=== PATIENT | male | born 1985 | race Hispanic/Latino ===

== ENCOUNTER → 2018-02-23 09:51 | Outpatient (CLI) | payer OTHER, SELFPAY ==
[2018-02-23 11:33] LABS: Alanine Aminotransferase 152 IU/L (21-72); Albumin 4.4 g/dL (3.5-5.0); Albumin Globulin Ratio 1.2 (1.0-2.8); Alkaline Phosphatase 58 U/L (38-126); Aspartate Aminotransferase 86 IU/L (17-59); BUN Creatinine Ratio 13.8 (6-22); Bilirubin Total 0.8 mg/dL (0.2-1.3); Calcium 9.4 mg/dL (8.4-10.2); Cholesterol 201 mg/dL (140-199); Estimated Glomerular Filt Rate > 60.0 mL/min (>60); Globulin 3.7 g/dL (1.7-4.1); Glucose 117 mg/dL (70-100); HDL Cholesterol 51 mg/dL (40-60); HEMOLYSIS < 15 (0-50); LDL Cholesterol Calculated 135 mg/dL (<100); Potassium 4.1 mmol/L (3.4-5.1); Sodium 138 mmol/L (137-145); Total Protein 8.1 g/dL (6.3-8.2); Triglycerides 76 mg/dL (35-150)
== END ==
PROVIDERS: PCP Physician Assistant; Visit Provider Physician Assistant
DX: I10 Essential (primary) hypertension (principal); K76.0 Fatty (change of) liver, not elsewhere classified
CPT/HCPCS: 36415; 80053; 80061

== ENCOUNTER 2018-03-27 10:37 | Emergency (ER) | payer OTHER, SELFPAY ==
[2018-03-27 10:44] VITALS: BP 148/85; PULSE 112; RESP 24; TEMP 36.8; O2SAT 98; BMI 46.5
--- NOTE | 2018-03-27 11:15 | PC.NURSE ---
States he feels disoriented
[2018-03-27 11:25] VITALS: BP 168/93; PULSE 108; RESP 14; O2SAT 100
[2018-03-27 12:00] VITALS: BP 150/75; PULSE 86; RESP 19; O2SAT 97
[2018-03-27] MEDS: LORazepam 2 MG/ML SYRINGE IV (12:10)
[2018-03-27] MEDS: THIAMINE 100 MG in DEXTROSE 5 % IN WATER 50 ML 204 ML IV (12:10)
[2018-03-27 12:11] LABS: Add Manual Diff / Slide Review NO; Basophils Percent Auto 0.7 % (0-2); Eosinophils Percent Auto 2.2 % (2-4); Hematocrit 47.1 % (41-53); Hemoglobin 16.4 g/dL (13.5-17.5); Mean Corpuscular HGB Conc 34.8 % (30-36); Mean Corpuscular Hemoglobin 31.5 PG (26-34); Mean Corpuscular Volume 90.7 fL (80-100); Monocytes Percent Auto 7.7 % (3-14); Neutrophils Absolute Auto 2900 /uL (3000-5900); Neutrophils Percent Auto 56.4 % (50-75); Platelet Count 243 X10^3/uL (150-400); Red Blood Cell Count 5.19 X10^6/uL (4.5-5.9); Red Cell Distribution Width 13.6 % (11.6-14.8); White Blood Cell Count 5.1 X10^3/uL (4.5-11.0)
[2018-03-27] MEDS: SODIUM CHLORIDE 0.9% 1,000 ML 1000 ML IV (12:11)
[2018-03-27 12:16] LABS: Alanine Aminotransferase 229 IU/L (21-72); Albumin 4.5 g/dL (3.5-5.0); Albumin Globulin Ratio 1.1 (1.0-2.8); Alkaline Phosphatase 71 U/L (38-126); Aspartate Aminotransferase 160 IU/L (17-59); BUN Creatinine Ratio 13.3 (6-22); Bilirubin Total 0.6 mg/dL (0.2-1.3); Bilirubin Unconjugated 0.2 mg/dL (0.0-1.1); Blood Urea Nitrogen 8 mg/dL (9-20); Calcium 9.2 mg/dL (8.4-10.2); Carbon Dioxide 25 mmol/L (22-32); Chloride 98 mmol/L (98-107); Estimated Glomerular Filt Rate > 60.0 mL/min (>60); Ethanol (ETOH) 50 mg/dL; Glucose 127 mg/dL (70-100); HEMOLYSIS 22 (0-50); Lipase 99 U/L (23-300); Magnesium 1.8 mg/dL (1.6-2.3); Potassium 3.8 mmol/L (3.4-5.1); Sodium 138 mmol/L (137-145); Total Protein 8.5 g/dL (6.3-8.2)
[2018-03-27 12:55] VITALS: BP 133/70; PULSE 95; RESP 20; O2SAT 96
[2018-03-27 13:04] LABS: Urine Amphetamines Negative (Negative); Urine Barbiturates Negative (Negative); Urine Benzodiazepines Negative (Negative); Urine Cocaine Negative (Negative); Urine MDMA Negative (Negative); Urine Methadone Negative (Negative); Urine Methamphetamines Negative (Negative); Urine Morphine/Opi cutoff 2000 Negative (Negative); Urine Oxycodone Negative (Negative); Urine Phencyclidine Negative (Negative); Urine Tetrahydrocannabinol Negative (Negative); Urine Tricyclic Antidepressant Negative (Negative)
[2018-03-27 14:00] VITALS: BP 137/66; PULSE 102; RESP 22; O2SAT 97
--- NOTE | 2018-03-27 15:19 | CM.SWNOTE ---
HOSIERY MENDER/Note: Received call from ED staff requesting HOSIERY MENDER for alcohol resources. Patient is a 32yr old male came to the ED today for alcohol detox. HOSIERY MENDER spoke with Dr. Wilkes whom indicates that patient is medically stable. HX of Alcoholism: Patient reports that he has been heavily drinking for the last 7yrs. Patient drink of choice is vodka. Patient anticipates that he drinks about 1 pint a day. HX of Treatment/Detox: Patient and spouse deny any previous detox attempts. Patient denies previous withdrawal attempts. Family HX: Patient reports that his father in June 2017 of liver disease. Support: Patient resides with spouse/Leyda whom is very supportive and does not drink. Patient active at [facility]. Patient sees Dr. Rachel and Luda for counseling. Plan: HOSIERY MENDER met with pateint and spouse at bedside. Patient reports that he would like to stop drinking. Patient's last drink was last night. Patient prefers to attempt detox at home. Spouse in agreement. Placed call to [facility] and patient can be seen by Dr. Rachel on 03-29 at 11:00AM. Dr. Wilkes in agreement to write patient prescription taper for alcohol withdrawal symptoms. Patient and spouse provided with outpatient resources and [facility] brochure for inpatient detox if they were to change there mind. P: Home today. RN updated. All aware and agreeable to plan. YOKASTA Allen
--- NOTE | 2018-03-27 19:26 | ED_ITS ---
HPI - Alcohol General Chief Complaint: Toxicology Problem Stated Complaint: LETHARGIC 'HIS HEART' Time Seen by Provider: 03/27/18 11:17 Source: patient and family Mode of arrival: ambulatory Limitations: no limitations History of Present Illness HPI narrative: Patient presents to the emergency department with a chief complaint of resting tremor, agitation and not feeling right in his head. He admittedly drinks about 1 L of vodka daily. He denies any history withdrawal in the past of his suggest that has had troubles. He has had no head injuries nor fever or chills Related Data Home Medications Medication Instructions Recorded Confirmed diltiazem HCl 60 mg PO PRN PRN #0 07/13/16 03/27/18 [CPAP] 1 unit MISCELLANEOUS HS #0 03/23/17 03/27/18 vitamin E 200 unit PO DAILY #0 03/23/17 03/27/18 Previous Rx's Medication Instructions Recorded tamsulosin [Flomax] 0.4 mg PO QDAY #90 cap 11/15/17 gabapentin [Neurontin] 300 mg PO TID #90 cap 01/18/18 lisinopril 20 1 tab PO QDAY #30 tab 02/14/18 mg-hydrochlorothiazide 12.5 mg tablet omeprazole 20 mg capsule,delayed 20 mg PO Q DAY #90 cap 03/08/18 release sertraline 100 mg tablet 100 mg PO DAILY 30 Days #30 tab 03/15/18 lorazepam [Ativan] See Label Instructions .ROUTE 03/27/18 .COMPLEX #19 tab Allergies Allergy/AdvReac Type Severity Reaction Status Date / Time Iodine and Iodide Containing Allergy Intermediate Hives Verified 03/27/18 10:48 Produc Review of Systems Review of Systems All systems reviewed & are unremarkable except as noted in HPI and below Constitutional Denies chills, Denies fever(s), Reports headache(s), Denies lethargy and Denies weakness Eyes Denies change in vision, Denies eye discharge, Denies irritation and Denies loss of vision ENT Ears, Nose, Mouth, and Throat: Denies change in voice, Reports headache(s), Denies neck pain and Denies sore throat Cardiovascular Denies chest pain, Reports irregular heart rhythm, Denies lightheadedness, Reports palpitations, Denies dyspnea, Denies dyspnea on exertion and Denies orthopnea Respiratory Denies cough, Denies dyspnea, Denies dyspnea on exertion and Denies wheezing Gastrointestinal Gastrointestinal: Denies abdominal pain, Denies change in bowel habits, Denies diarrhea, Denies nausea and Denies vomiting Genitourinary Denies hematuria, Denies flank pain, Denies urinary incontinence and Denies urinary urgency Musculoskeletal Denies neck pain Integumentary/Breasts Denies pruritus, Denies erythema, Denies rash and Denies wounds Neurologic Denies confusion, Reports headache(s), Denies loss of vision and Denies weakness Psychiatric Reports anxiety, Denies confusion, Denies depression, Reports irritability, Denies homicidal ideation and Denies suicidal ideation Endocrine Reports palpitations Hematologic/Lymphatic Denies easy bruising Allergic/Immunologic Denies wheezing PFSH Medical History Irritable bowel syndrome (Acute Unknown) Liver disease (Acute Unknown) GERD (gastroesophageal reflux disease) (Chronic Unknown) H/O tinnitus (Chronic Unknown) Hypertension (Chronic Unknown) Substance abuse (Chronic Unknown) Social History Smoking Status: Never smoker Exam Narrative Exam Narrative: 32-year-old male in mild distress, clearly agitated Initial Vital Signs Initial Vital Signs: Vital Signs Temperature 98.2 F 03/27/18 10:44 Pulse Rate 112 H 03/27/18 10:44 Respiratory Rate 24 03/27/18 10:44 Blood Pressure 148/85 H 03/27/18 10:44 Pulse Oximetry 98 03/27/18 10:44 Const General: cooperative, well developed, in distress and anxious Nutritional Appearance: well nourished Orientation: alert, awake, oriented x3 and not confused [facility] Head: normocephalic and atraumatic Ears: external ears normal and TM's normal bilaterally Nose: external nose normal and No nasal discharge Face and sinus: sinuses nontender, face symmetric, no sinus tenderness and No dry mucous membranes Mouth: oral mucosae normal and moist mucous membranes Teeth and gingiva: dentition normal Throat: tonsils normal and uvula midline Eyes General: appearance normal, both eyes and all related structures Eyelids: eyelids normal Conjunctivae: conjunctivae normal Sclera: sclerae normal Pupils: PERRL EOM: EOM intact bilaterally Chest Chest: normal inspection of the chest Cardio Rate: regular rate Rhythm: regular rhythm Heart Sounds: no click, no gallops, no murmurs and no rubs Pulses: normal peripheral pulses GI Inspection: non-distended Palpation: soft, no hepatosplenomegaly, No guarding, No pulsatile mass and No tender Auscultation: normal bowel sounds Back/Spine/Pelvis Back: No CVA tenderness Cervical Spine: cervical ROM normal and No pain with cervical ROM Thoracic/Lumbar Spine: thoracic and lumbar spine normal to inspection Neuro General: alert, awake and oriented x3 Extrem General: full ROM, no clubbing, cyanosis or edema, no pedal edema and no calf tenderness Psych Appearance: well kempt Mental Status: mental status grossly normal Attitude: cooperative Thought Content: normal and suicidality Judgment: judgment good Course Orders Ordered: ED Orders 03/27/18 11:40 Complete Blood Count AUTO DIFF Stat Comprehensive Metabolic Panel Stat Ethanol (ETOH) Stat Hepatic (Liver) Panel Stat Lipase Stat Magnesium Stat 03/27/18 12:50 Rapid Drug Screen, Urine Stat Discontinued Medications Sodium Chloride (Normal Saline 0.9%) 1,000 mls @ 1,000 mls/hr IV BOLUS ONE Stop: 03/27/18 12:56 Last Infusion: 03/27/18 13:13 Dose: 0 mls/hr Admin: 03/27/18 12:11 Dose: 1,000 mls/hr Thiamine HCl 100 mg/ Dextrose 51 mls @ 204 mls/hr IV NOW ONE Stop: 03/27/18 11:58 Last Infusion: 03/27/18 12:53 Dose: 0 mls/hr Admin: 03/27/18 12:10 Dose: 204 mls/hr Lorazepam (Ativan) 2 mg IV NOW ONE Stop: 03/27/18 11:58 Last Admin: 03/27/18 12:10 Dose: 2 mg Reevaluation(s) Reevaluation #1: Christine for Alcohol Withdrawal from [facility] on 03/27/2018 All calculations should be rechecked by clinician prior to use RESULT SUMMARY: 8 points Patients with scores ?8 typically do not require medication for withdrawal. INPUTS: Nausea/vomiting ?> 1 = Mild nausea and no vomiting Tremor ?> 2 = (More severe symptoms) Paroxysmal sweats ?> 0 = No sweat visible Anxiety ?> 2 = (More severe symptoms) Agitation ?> 2 = (More severe symptoms) Tactile disturbances ?> 0 = None Auditory disturbances ?> 0 = Not present Visual disturbances ?> 0 = Not present Headache/fullness in head ?> 1 = Very mild Orientation/clouding of sensorium ?> 0 = Oriented, can do serial additions Consultations Consultation #1: Patient had a lengthy bedside discussion with care management whom called multiple local facilities patient refused any inpatient evaluation. Care management was able to arrange for close follow-up by the patient's primary care provider and mental health provider within the next 2 days Vital Signs - 8 hr 03/27/18 12:55 03/27/18 14:00 Pulse Rate 95 H 102 H Respiratory Rate 20 22 Blood Pressure [Left Arm] 133/70 H 137/66 H Pulse Oximetry 96 97 MDM - Alcohol Lab Data Result diagrams: 03/27/18 11:40 03/27/18 11:40 Labs: Lab Results 03/27/18 03/27/18 03/27/18 Range/Units 11:40 11:40 12:50 WBC 5.1 (4.5-11.0) X10^3/uL RBC 5.19 (4.5-5.9) X10^6/uL Hgb 16.4 (13.5-17.5) g/dL Hct 47.1 (41-53) % MCV 90.7 (80-100) fL MCH 31.5 (26-34) PG MCHC 34.8 (30-36) % RDW 13.6 (11.6-14.8) % Plt Count 243 (150-400) X10^3/uL Neut % (Auto) 56.4 (50-75) % Lymph % (Auto) 33.0 (25-40) % [place] % (Auto) 7.7 (3-14) % Eos % (Auto) 2.2 (2-4) % Baso % (Auto) 0.7 (0-2) % Neut # (Auto) 2900 L (2439-5266) /uL Sodium 138 (137-145) mmol/L Potassium 3.8 (3.4-5.1) mmol/L Chloride 98 (98-107) mmol/L Carbon Dioxide 25 (22-32) mmol/L BUN 8 L (9-20) mg/dL Creatinine 0.60 L (0.66-1.25) mg/dL Estimated GFR > 60.0 (>60) mL/min BUN/Creatinine Ratio 13.3 (6-22) Glucose 127 H (70-100) mg/dL Calcium 9.2 (8.4-10.2) mg/dL Magnesium 1.8 (1.6-2.3) mg/dL Total Bilirubin 0.6 (0.2-1.3) mg/dL Conjugated Bilirubin 0.0 (0.0-0.3) md/dL Unconjugated Bilirubin 0.2 (0.0-1.1) mg/dL AST 160 H (17-59) IU/L ALT 229 H (21-72) IU/L Alkaline Phosphatase 71 (38-126) U/L Total Protein 8.5 H (6.3-8.2) g/dL Albumin 4.5 (3.5-5.0) g/dL Globulin 4.0 (1.7-4.1) g/dL Albumin/Globulin Ratio 1.1 (1.0-2.8) Lipase 99 (23-300) U/L Urine Opiates Screen Negative (Negative) Ur Oxycodone Screen Negative (Negative) Urine Methadone Screen Negative (Negative) Ur Barbiturates Screen Negative (Negative) U Tricyclic Antidepress Negative (Negative) Ur Phencyclidine Scrn Negative (Negative) Ur Amphetamines Screen Negative (Negative) U Methamphetamines Scrn Negative (Negative) Ur MDMA Scrn (Ecstasy) Negative (Negative) U Benzodiazepines Scrn Negative (Negative) Urine Cocaine Screen Negative (Negative) U Marijuana (THC) Screen Negative (Negative) Ethyl Alcohol 50 mg/dL Discharge Plan Departure Patient Disposition: Home, Self-Care Clinical Impression: Alcohol withdrawal Discharge Date/Time: 03/27/18 14:36 Interventions: ED Discharge Assessment Last Done: 03/27/18 14:34 Instructions: Alcohol Use Disorder Activity Restrictions/Additional Instructions: *You have been diagnosed with [ alcohol abuse and withdrawal ] *What to do: *Take medications as directed *Follow up with your doctors as planned with care management *Return to ER if you should haveany new, worsening or concerning symptoms Prescriptions: New lorazepam [Ativan] 1 mg tablet See Label Instructions .ROUTE .COMPLEX Qty: 19 RF: 0 No Action sertraline 100 mg tablet 100 mg PO DAILY 30 Days Qty: 30 RF: 2 diltiazem HCl 60 mg Tablet 60 mg PO PRN PRN (Reason: UNKNOWN) Qty: 0 RF: 0 vitamin E 200 unit Capsule 200 unit PO DAILY Qty: 0 RF: 0 [CPAP] 1 unit miscellaneous HS Qty: 0 RF: 0 tamsulosin [Flomax] 0.4 MG capsule,extended release 24hr 0.4 mg PO QDAY Qty: 90 RF: 1 gabapentin [Neurontin] 300 MG capsule 300 mg PO TID Qty: 90 RF: 2 lisinopril-hydrochlorothiazide 20-12.5 mg tablet 1 tab PO QDAY Qty: 30 RF: 1 omeprazole 20 mg capsule,delayed release(DR/EC) 20 mg PO Q DAY Qty: 90 RF: 1 Referrals: Eric Rachel DO [Physician] - Stand Alone Forms: Work/School Restrictions
== END 2018-03-27 14:36 | disposition home or self-care (01) ==
PROVIDERS: Emergency Provider Emergency Medicine; Family Provider Physician Assistant; PCP Physician Assistant
DX: F10.239 Alcohol dependence with withdrawal, unspecified (principal)
CPT/HCPCS: 36591; 80053; 80076; 80305; 80320; 83690; 83735; 85025; 93005; 96365; 96375; 99284; J2060

== ENCOUNTER → 2018-08-15 08:39 | Outpatient (CLI) | payer OTHER, SELFPAY ==
[2018-08-15 10:16] LABS: Hemoglobin A1C% w Est Avg Glu 5.8 % (4.0-6.0)
[2018-08-15 10:47] LABS: Alanine Aminotransferase 293 IU/L (21-72); Albumin 4.5 g/dL (3.5-5.0); Albumin Globulin Ratio 1.2 (1.0-2.8); Alkaline Phosphatase 76 U/L (38-126); Aspartate Aminotransferase 244 IU/L (17-59); BUN Creatinine Ratio 11.3 (6-22); Bilirubin Total 0.5 mg/dL (0.2-1.3); Blood Urea Nitrogen 9 mg/dL (9-20); Calcium 9.1 mg/dL (8.4-10.2); Carbon Dioxide 30 mmol/L (22-32); Chloride 101 mmol/L (98-107); Cholesterol 197 mg/dL (140-199); Estimated Glomerular Filt Rate > 60.0 mL/min (>60); Globulin 3.7 g/dL (1.7-4.1); Glucose 106 mg/dL (70-100); HDL Cholesterol 56 mg/dL (40-60); HEMOLYSIS < 15 (0-50); LDL Cholesterol Calculated 117 mg/dL (<100); Sodium 142 mmol/L (137-145); Total Protein 8.2 g/dL (6.3-8.2); Triglycerides 118 mg/dL (35-150)
[2018-08-15 11:03] LABS: Microalbumi Creatinin Ratio Ur 9.8 ug/mg CR (<30)
== END ==
PROVIDERS: PCP Physician Assistant; Visit Provider Physician Assistant
DX: E78.5 Hyperlipidemia, unspecified (principal); I10 Essential (primary) hypertension; K76.0 Fatty (change of) liver, not elsewhere classified; R73.01 Impaired fasting glucose
CPT/HCPCS: 36415; 80053; 80061; 82043; 82570; 83036

== ENCOUNTER → 2019-01-11 09:24 | Outpatient (CLI) | payer OTHER, SELFPAY ==
[2019-01-11 09:57] LABS: Influenza A and B by PCR Rapid Negative (Negative)
== END ==
PROVIDERS: Family Provider Physician Assistant; PCP Physician Assistant; Visit Provider Physician Assistant
DX: R68.89 Other general symptoms and signs (principal)
CPT/HCPCS: 87400

== ENCOUNTER → 2019-01-11 09:44 | Outpatient (CLI) | payer OTHER, SELFPAY ==
[2019-01-11 10:17] LABS: Add Manual Diff / Slide Review NO; Basophils Absolute Auto 0 /uL (0-100); Basophils Percent Auto 0.7 % (0-2); Eosinophils Absolute Auto 100 /uL (0-450); Eosinophils Percent Auto 0.9 % (2-4); Hematocrit 44.7 % (41-53); Hemoglobin 15.5 g/dL (13.5-17.5); Lymphocytes Absolute Auto 700 /uL (1100-4500); Lymphocytes Percent Auto 12.5 % (25-40); Mean Corpuscular HGB Conc 34.7 % (30-36); Mean Corpuscular Hemoglobin 32.9 PG (26-34); Mean Corpuscular Volume 94.7 fL (80-100); Monocytes Absolute Auto 300 /uL (0-900); Monocytes Percent Auto 5.5 % (3-14); Neutrophils Absolute Auto 4500 /uL (1500-7000); Neutrophils Percent Auto 80.4 % (50-75); Platelet Count 174 X10^3/uL (150-400); Red Blood Cell Count 4.72 X10^6/uL (4.5-5.9); Red Cell Distribution Width 14.3 % (11.6-14.8); White Blood Cell Count 5.6 X10^3/uL (4.5-11.0)
[2019-01-11 10:27] LABS: Lipase 118 U/L (23-300)
[2019-01-11 10:31] LABS: Alanine Aminotransferase 302 IU/L (21-72); Albumin 4.4 g/dL (3.5-5.0); Albumin Globulin Ratio 1.1 (1.0-2.8); Alkaline Phosphatase 85 U/L (38-126); Aspartate Aminotransferase 583 IU/L (17-59); BUN Creatinine Ratio 12.9 (6-22); Bilirubin Total 2.6 mg/dL (0.2-1.3); Blood Urea Nitrogen 9 mg/dL (9-20); Calcium 9.2 mg/dL (8.4-10.2); Carbon Dioxide 27 mmol/L (22-32); Chloride 99 mmol/L (98-107); Estimated Glomerular Filt Rate > 60.0 mL/min (>60); Globulin 3.9 g/dL (1.7-4.1); Glucose 113 mg/dL (70-100); HEMOLYSIS < 15 (0-50); Potassium 4.1 mmol/L (3.4-5.1); Sodium 136 mmol/L (137-145); Total Protein 8.3 g/dL (6.3-8.2)
== END ==
PROVIDERS: Physician Assistant; PCP Physician Assistant; Visit Provider Physician Assistant
DX: I10 Essential (primary) hypertension (principal); R10.9 Unspecified abdominal pain; F10.20 Alcohol dependence, uncomplicated; K76.0 Fatty (change of) liver, not elsewhere classified; R68.89 Other general symptoms and signs
CPT/HCPCS: 80053; 83690; 85025; 87400

== ENCOUNTER 2019-05-04 12:08 | Emergency (ER) | payer OTHER, SELFPAY ==
[2019-05-04 12:18] VITALS: BP 169/90; PULSE 100; RESP 20; TEMP 36.5; O2SAT 99; BMI 42.3
--- NOTE | 2019-05-04 13:19 | ED.NAVMDI ---
HPI - Nausea/Vomiting/Diarrhea <YAMILKA Zavala - Last Filed: 05/04/19 21:27> General Chief complaint: Nausea/Vomiting/Diarrhea Stated complaint: medication reaction Time Seen by Provider: 05/04/19 12:39 History of Present Illness HPI Narrative: 33-year-old male with a history of alcohol abuse, presents emergency department today complaining of dry mouth, nausea, and dizziness starting this morning with associated vomiting. He states that he has been tapering off his Zoloft and switching to Cymbalta over the past few weeks, was initiated by Psychiatry, per patient. Today is the 2nd day he is taking a full dose of Cymbalta. He states he usually drinks a 0.5 L of vodka a day, today he has drinking the same. He denies any chest pain, shortness of breath, headaches, vision changes, sore throat, abdominal pain, diarrhea, constipation, or head trauma. Related Data Home Medications Medication Instructions Recorded Confirmed vitamin B complex tablet 1 tab PO DAILY 11/02/18 05/04/19 duloxetine 60 mg PO DAILY 05/04/19 05/04/19 Previous Rx's Medication Instructions Recorded lisinopril 20 1 tab PO DAILY #90 tab 11/02/18 mg-hydrochlorothiazide 12.5 mg tablet omeprazole 20 mg capsule,delayed 20 mg PO Q DAY #90 cap 11/27/18 release ondansetron HCl [Zofran] 4 mg PO Q8-12H PRN #7 tab 05/04/19 Allergies Allergy/AdvReac Type Severity Reaction Status Date / Time Iodine and Iodide Containing Allergy Intermediate Hives Verified 05/04/19 14:15 Produc Review of Systems <YAMILKA Zavala - Last Filed: 05/04/19 21:27> Review of Systems REVIEW OF SYSTEMS: GENERAL: Denies fever, chills, malaise, or wt. loss. HENT: No head trauma, sore throat, or dysphagia. Complains of dry mouth, see HPI. EYES: No loss of vision, double vision, eye pain, or irritation. CARDIOVASCULAR: No chest pain, palpitations, or orthopnea. RESPIRATORY: No shortness of breath or cough. GASTROINTESTINAL: Complains of nausea, see HPI GENITOURINARY: No flank pain, urinary incontinence, hesitancy, frequency, or dysuria. [No vaginal discharge or dyspareunia. Denies concerns for STIs] MUSCULOSKELETAL: No pain, weakness, or trauma. INTEGUMENTARY: No rash, lesions, or pruritus. NEURO: No numbness, tingling, memory loss, confusion, or headaches. PSYCH: No behavior or mood changes. PFSH <YAMILKA Zavala - Last Filed: 05/04/19 21:27> Medical History Irritable bowel syndrome (Acute Unknown) Liver disease (Acute Unknown) GERD (gastroesophageal reflux disease) (Chronic Unknown) H/O tinnitus (Chronic Unknown) Hypertension (Chronic Unknown) Substance abuse (Chronic Unknown) Social History Smoking Status: Never smoker second hand exposure: No alcohol intake: current (vodka everyday.) substance use type: does not use Social History Smoking Status: Never smoker second hand exposure: No alcohol intake: current (vodka everyday.) substance use type: does not use Exam <YAMILKA Zavala - Last Filed: 05/04/19 21:27> Initial Vital Signs Initial Vital Signs: Vital Signs Temperature 97.7 F 05/04/19 12:18 Pulse Rate 100 H 05/04/19 12:18 Respiratory Rate 20 05/04/19 12:18 Blood Pressure 169/90 H 05/04/19 12:18 Pulse Oximetry 99 05/04/19 12:18 PHYSICAL EXAMINATION: GENERAL: Well groomed, alert, and cooperative. Patient smells of alcohol. Answers questions promptly and appropriately. Vital signs noted. HENT: Normocephalic, atraumatic. Hearing intact. Oral mucosa is pink and moist. EYES: PERRLA, EOMIs, slight leftward vertical nystagmus. Conjunctiva pink, sclera white, no periorbital swelling. CARDIOVASCULAR: S1 and S2 sounds normal. Regular rate and rhythm, no murmurs, clicks, or bruits. No pedal edema. RESPIRATORY: Normal respiratory rate, trachea midline, airway patent. No stridor, nasal flaring or accessory muscle use. Lungs are clear in all naik without wheeze, rhonchi, or crackles. GASTROINTESTINAL: Bowel sounds normoactive. Abdomen is soft and non-tender. No organomegaly, no palpable masses. GENITALURINARY: No flank tenderness. MUSCULOSKELETAL: Normal gait and coordination. Equal tone and mass bilaterally. EXTREMITIES: CMS intact, no pedal edema. SKIN: Warm, dry, soft, appropriate color for ethnicity. No lesions, rashes, or wounds. NEURO: Alert and Oriented X 3. CN III-XIII grossly intact. Good coordination. No ataxia, or sensory deficits, or cognitive issues. PSYCH: Appropriate affect and mood. <Gabrielle Winters DO - Last Filed: 05/05/19 07:27> Initial Vital Signs Initial Vital Signs: Vital Signs Temperature 97.7 F 05/04/19 12:18 Pulse Rate 100 H 05/04/19 12:18 Respiratory Rate 20 05/04/19 12:18 Blood Pressure 169/90 H 05/04/19 12:18 Pulse Oximetry 99 05/04/19 12:18 Course <YAMILKA Zavala - Last Filed: 05/04/19 21:27> Course Narrative: Patient states he was feeling a lot better after administration of medication and fluid. He states still feels a bit foggy. Patient was instructed to follow up with Psychiatry about medication adjustment if needed. Patient was able to ambulate without difficulty. Orders Ordered: Discontinued Medications Sodium Chloride (Normal Saline 0.9%) 1,000 mls @ 1,000 mls/hr IV BOLUS ONE Stop: 05/04/19 14:11 Last Infusion: 05/04/19 15:31 Dose: 0 mls/hr Admin: 05/04/19 13:46 Dose: 1,000 mls/hr Lorazepam (Ativan) 0.5 mg IV NOW ONE Stop: 05/04/19 13:13 Last Admin: 05/04/19 13:46 Dose: 0.5 mg Vital Signs - 8 hr 05/04/19 13:35 05/04/19 14:21 05/04/19 15:27 Pulse Rate 101 H 98 H 101 H Respiratory Rate 24 22 24 Blood Pressure [Left Arm] 175/97 H 157/92 H 149/80 H Pulse Oximetry 98 95 97 <Gabrielle Winters DO - Last Filed: 05/05/19 07:27> Orders Ordered: Discontinued Medications Sodium Chloride (Normal Saline 0.9%) 1,000 mls @ 1,000 mls/hr IV BOLUS ONE Stop: 05/04/19 14:11 Last Infusion: 05/04/19 15:31 Dose: 0 mls/hr Admin: 05/04/19 13:46 Dose: 1,000 mls/hr Lorazepam (Ativan) 0.5 mg IV NOW ONE Stop: 05/04/19 13:13 Last Admin: 05/04/19 13:46 Dose: 0.5 mg Vital Signs - 8 hr 05/04/19 13:35 05/04/19 14:21 05/04/19 15:27 Pulse Rate 101 H 98 H 101 H Respiratory Rate 24 22 24 Blood Pressure [Left Arm] 175/97 H 157/92 H 149/80 H Pulse Oximetry 98 95 97 MDM - Nausea/Vomiting/Diarrhea <YAMILKA Zavala - Last Filed: 05/04/19 21:27> Medical Records Attestation: I reviewed the patient's medical records. Lab Data Attestation: I reviewed the patient's lab results. Result diagrams: 05/04/19 13:35 05/04/19 13:35 Lab Results 05/04/19 05/04/19 Range/Units 13:35 13:35 WBC 6.5 (4.5-11.0) X10^3/uL RBC 4.45 L (4.5-5.9) X10^6/uL Hgb 14.6 (13.5-17.5) g/dL Hct 43.0 (41-53) % MCV 96.5 (80-100) fL MCH 32.8 (26-34) PG MCHC 34.0 (30-36) % RDW 13.7 (11.6-14.8) % Plt Count 177 (150-400) X10^3/uL Neut % (Auto) 78.6 H (50-75) % Lymph % (Auto) 13.9 L (25-40) % [place] % (Auto) 6.3 (3-14) % Eos % (Auto) 0.3 L (2-4) % Baso % (Auto) 0.9 (0-2) % Neut # (Auto) 5100 (7539-7611) /uL Lymph # (Auto) 900 L (3289-3627) /uL [place] # (Auto) 400 (0-900) /uL Eos # (Auto) 0 (0-450) /uL Baso # (Auto) 100 (0-100) /uL Sodium 135 L (137-145) mmol/L Potassium 3.9 (3.4-5.1) mmol/L Chloride 94 L (98-107) mmol/L Carbon Dioxide 28 (22-32) mmol/L BUN 5 L (9-20) mg/dL Creatinine 0.50 L (0.66-1.25) mg/dL Estimated GFR > 60.0 (>60) mL/min BUN/Creatinine Ratio 10.0 (6-22) Glucose 114 H (70-100) mg/dL Calcium 9.1 (8.4-10.2) mg/dL Total Bilirubin 2.1 H (0.2-1.3) mg/dL AST 379 H (17-59) IU/L ALT 115 H (21-72) IU/L Alkaline Phosphatase 138 H (38-126) U/L Total Protein 9.1 H (6.3-8.2) g/dL Albumin 4.4 (3.5-5.0) g/dL Globulin 4.7 H (1.7-4.1) g/dL Albumin/Globulin Ratio 0.9 L (1.0-2.8) ECG Data Interpretation: EKG was read and interpreted by Dr. Winters. MDM Narrative Medical decision making narrative: I suspect patient's symptoms are due to this which in anti-depression medication as all of his symptoms are side effects of these medications, his affect are probably accentuated by his consumption of alcohol. I am not concerned for a cranial bleed as he does not report any trauma, I am not concern for withdrawals as he states he has been drinking a half a liter of vodka for many days and has not been drinking that today as well as yesterday. Strict return precautions given and follow-up instructions discussed. <Gabrielle Winters, DO - Last Filed: 05/05/19 07:27> Lab Data Lab Results 05/04/19 05/04/19 Range/Units 13:35 13:35 WBC 6.5 (4.5-11.0) X10^3/uL RBC 4.45 L (4.5-5.9) X10^6/uL Hgb 14.6 (13.5-17.5) g/dL Hct 43.0 (41-53) % MCV 96.5 (80-100) fL MCH 32.8 (26-34) PG MCHC 34.0 (30-36) % RDW 13.7 (11.6-14.8) % Plt Count 177 (150-400) X10^3/uL Neut % (Auto) 78.6 H (50-75) % Lymph % (Auto) 13.9 L (25-40) % [place] % (Auto) 6.3 (3-14) % Eos % (Auto) 0.3 L (2-4) % Baso % (Auto) 0.9 (0-2) % Neut # (Auto) 5100 (4406-7626) /uL Lymph # (Auto) 900 L (8511-5338) /uL [place] # (Auto) 400 (0-900) /uL Eos # (Auto) 0 (0-450) /uL Baso # (Auto) 100 (0-100) /uL Sodium 135 L (137-145) mmol/L Potassium 3.9 (3.4-5.1) mmol/L Chloride 94 L (98-107) mmol/L Carbon Dioxide 28 (22-32) mmol/L BUN 5 L (9-20) mg/dL Creatinine 0.50 L (0.66-1.25) mg/dL Estimated GFR > 60.0 (>60) mL/min BUN/Creatinine Ratio 10.0 (6-22) Glucose 114 H (70-100) mg/dL Calcium 9.1 (8.4-10.2) mg/dL Total Bilirubin 2.1 H (0.2-1.3) mg/dL AST 379 H (17-59) IU/L ALT 115 H (21-72) IU/L Alkaline Phosphatase 138 H (38-126) U/L Total Protein 9.1 H (6.3-8.2) g/dL Albumin 4.4 (3.5-5.0) g/dL Globulin 4.7 H (1.7-4.1) g/dL Albumin/Globulin Ratio 0.9 L (1.0-2.8) Discharge Plan Departure Patient Disposition: Home Clinical Impression: Adverse reaction to SSRI antidepressant drug Qualifiers: Encounter type: initial encounter Qualified Code(s): T43.225A - Adverse effect of selective serotonin reuptake inhibitors, initial encounter Discharge Date/Time: 05/04/19 15:31 Interventions: ED Discharge Assessment Last Done: 05/04/19 15:31 Instructions: DI for Nausea -- Adult Activity Restrictions/Additional Instructions: Thank you for entrusting me with your care today. As discussed, I believe your symptoms are caused by a change in medications. Please follow up with Psychiatry in the next week to discuss your symptoms and any changes to the medication if they need to be made. I do not recommend stopping your antidepressants as this will cause more symptoms. I prescribed you some medication for nausea. Please return to the emergency department if he develops chest pain, shortness of breath, syncope, seizures, or high fevers. Prescriptions: New ondansetron HCl [Zofran] 4 mg tablet 4 mg PO Q8-12H PRN (Reason: nausea and vomiting) Qty: 7 RF: 0 No Action vitamin B complex tablet 1 tab PO DAILY RF: 0 lisinopril-hydrochlorothiazide 20-12.5 mg tablet 1 tab PO DAILY Qty: 90 RF: 1 omeprazole 20 mg capsule,delayed release(DR/EC) 20 mg PO Q DAY Qty: 90 RF: 1 duloxetine 60 mg capsule,delayed release(DR/EC) 60 mg PO DAILY RF: 0 Referrals: Tracee Knott PA-C [Primary Care Provider] - <Gabrielle Winters DO - Last Filed: 05/05/19 07:27> [facility] ED Attending Lashay Attestation: I was immediately available in the department for consultation. Documentation has been reviewed. I agree with assessment and plan.
--- NOTE | 2019-05-04 13:27 | ED_ITS ---
HPI - Nausea/Vomiting/Diarrhea <YAMILKA Zavala - Last Filed: 05/04/19 21:27> General Chief complaint: Nausea/Vomiting/Diarrhea Stated complaint: medication reaction Time Seen by Provider: 05/04/19 12:39 History of Present Illness HPI Narrative: 33-year-old male with a history of alcohol abuse, presents emergency department today complaining of dry mouth, nausea, and dizziness starting this morning with associated vomiting. He states that he has been tap ering off his Zoloft and switching to Cymbalta over the past few weeks, was initiated by Psychiatry, per patient. Today is the 2nd day he is taking a full dose of Cymbalta. He states he usually drinks a 0.5 L of vodka a day, today he has drinking the same. He denies any chest pain, shortness of breath, headaches, vision changes, sore throat, abdominal pain, diarrhea, constipation, or head trauma. Related Data Home Medications Medication Instructions Recorded Confirmed vitamin B complex tablet 1 tab PO DAILY 11/02/18 05/04/19 duloxetine 60 mg PO DAILY 05/04/19 05/04/19 Previous Rx's Medication Instructions Recorded lisinopril 20 1 tab PO DAILY #90 tab 11/02/18 mg-hydrochlorothiazide 12.5 mg tablet omeprazole 20 mg capsule,delayed 20 mg PO Q DAY #90 cap 11/27/18 release ondansetron HCl [Zofran] 4 mg PO Q8-12H PRN #7 tab 05/04/19 Allergies Allergy/AdvReac Type Severity Reaction Status Date / Time Iodine and Iodide Containing Allergy Intermediate Hives Verified 05/04/19 14:15 Produc Review of Systems <YAMILKA Zavala - Last Filed: 05/04/19 21:27> Review of Systems REVIEW OF SYSTEMS: GENERAL: Denies fever, chills, malaise, or wt. loss. HENT: No head trauma, sore throat, or dysphagia. Complains of dry mouth, see HPI. EYES: No loss of vision, double vision, eye pain, or irritation. CARDIOVASCULAR: No chest pain, palpitations, or orthopnea. RESPIRATORY: No shortness of breath or cough. GASTROINTESTINAL: Complains of nausea, see HPI GENITOURINARY: No flank pain, urinary incontinence, hesitancy, frequency, or dysuria. [No vaginal discharge or dyspareunia. Denies concerns for STIs] MUSCULOSKELETAL: No pain, weakness, or trauma. INTEGUMENTARY: No rash, lesions, or pruritus. NEURO: No numbness, tingling, memory loss, confusion, or headaches. PSYCH: No behavior or mood changes. PFSH <YAMILKA Zavala - Last Filed: 05/04/19 21:27> Medical History Irritable bowel syndrome (Acute Unknown) Liver disease (Acute Unknown) GERD (gastroesophageal reflux disease) (Chronic Unknown) H/O tinnitus (Chronic Unknown) Hypertension (Chronic Unknown) Substance abuse (Chronic Unknown) Social History Smoking Status: Never smoker second hand exposure: No alcohol intake: current (vodka everyday.) substance use type: does not use Social History Smoking Status: Never smoker second hand exposure: No alcohol intake: current (vodka everyday.) substance use type: does not use Exam <YAMILKA Zavala - Last Filed: 05/04/19 21:27> Initial Vital Signs Initial Vital Signs: Vital Signs Temperature 97.7 F 05/04/19 12:18 Pulse Rate 100 H 05/04/19 12:18 Respiratory Rate 20 05/04/19 12:18 Blood Pressure 169/90 H 05/04/19 12:18 Pulse Oximetry 99 05/04/19 12:18 PHYSICAL EXAMINATION: GENERAL: Well groomed, alert, and cooperative. Patient smells of alcohol. Answers questions promptly and appropriately. Vital signs noted. HENT: Normocephalic, atraumatic. Hearing intact. Oral mucosa is pink and moist. EYES: PERRLA, EOMIs, slight leftward vertical nystagmus. Conjunctiva pink, sclera white, no periorbital swelling. CARDIOVASCULAR: S1 and S2 sounds normal. Regular rate and rhythm, no murmurs, clicks, or bruits. No pedal edema. RESPIRATORY: Normal respiratory rate, trachea midline, airway patent. No stridor, nasal flaring or accessory muscle use. Lungs are clear in all naik without wheeze, rhonchi, or crackles. GASTROINTESTINAL: Bowel sounds normoactive. Abdomen is soft and non-tender. No organomegaly, no palpable masses. GENITALURINARY: No flank tenderness. MUSCULOSKELETAL: Normal gait and coordination. Equal tone and mass bilaterally. EXTREMITIES: CMS intact, no pedal edema. SKIN: Warm, dry, soft, appropriate color for ethnicity. No lesions, rashes, or wounds. NEURO: Alert and Oriented X 3. CN III-XIII grossly intact. Good coordination. No ataxia, or sensory deficits, or cognitive issues. PSYCH: Appropriate affect and mood. <Gabrielle Winters DO - Last Filed: 05/05/19 07:27> Initial Vital Signs Initial Vital Signs: Vital Signs Temperature 97.7 F 05/04/19 12:18 Pulse Rate 100 H 05/04/19 12:18 Respiratory Rate 20 05/04/19 12:18 Blood Pressure 169/90 H 05/04/19 12:18 Pulse Oximetry 99 05/04/19 12:18 Course <YAMILKA Zavala - Last Filed: 05/04/19 21:27> Course Narrative: Patient states he was feeling a lot better after administration of medication and fluid. He states still feels a bit foggy. Patient was instructed to follow up with Psychiatry about medication adjustment if needed. Patient was able to ambulate without difficulty. Orders Ordered: Discontinued Medications Sodium Chloride (Normal Saline 0.9%) 1,000 mls @ 1,000 mls/hr IV BOLUS ONE Stop: 05/04/19 14:11 Last Infusion: 05/04/19 15:31 Dose: 0 mls/hr Admin: 05/04/19 13:46 Dose: 1,000 mls/hr Lorazepam (Ativan) 0.5 mg IV NOW ONE Stop: 05/04/19 13:13 Last Admin: 05/04/19 13:46 Dose: 0.5 mg Vital Signs - 8 hr 05/04/19 13:35 05/04/19 14:21 05/04/19 15:27 Pulse Rate 101 H 98 H 101 H Respiratory Rate 24 22 24 Blood Pressure [Left Arm] 175/97 H 157/92 H 149/80 H Pulse Oximetry 98 95 97 <Gabrielle Winters DO - Last Filed: 05/05/19 07:27> Orders Ordered: Discontinued Medications Sodium Chloride (Normal Saline 0.9%) 1,000 mls @ 1,000 mls/hr IV BOLUS ONE Stop: 05/04/19 14:11 Last Infusion: 05/04/19 15:31 Dose: 0 mls/hr Admin: 05/04/19 13:46 Dose: 1,000 mls/hr Lorazepam (Ativan) 0.5 mg IV NOW ONE Stop: 05/04/19 13:13 Last Admin: 05/04/19 13:46 Dose: 0.5 mg Vital Signs - 8 hr 05/04/19 13:35 05/04/19 14:21 05/04/19 15:27 Pulse Rate 101 H 98 H 101 H Respiratory Rate 24 22 24 Blood Pressure [Left Arm] 175/97 H 157/92 H 149/80 H Pulse Oximetry 98 95 97 MDM - Nausea/Vomiting/Diarrhea <YAMILKA Zavala - Last Filed: 05/04/19 21:27> Medical Records Attestation: I reviewed the patient's medical records. Lab Data Attestation: I reviewed the patient's lab results. Result diagrams: 05/04/19 13:35 05/04/19 13:35 Lab Results 05/04/19 05/04/19 Range/Units 13:35 13:35 WBC 6.5 (4.5-11.0) X10^3/uL RBC 4.45 L (4.5-5.9) X10^6/uL Hgb 14.6 (13.5-17.5) g/dL Hct 43.0 (41-53) % MCV 96.5 (80-100) fL MCH 32.8 (26-34) PG MCHC 34.0 (30-36) % RDW 13.7 (11.6-14.8) % Plt Count 177 (150-400) X10^3/uL Neut % (Auto) 78.6 H (50-75) % Lymph % (Auto) 13.9 L (25-40) % [place]orne % (Auto) 6.3 (3-14) % Eos % (Auto) 0.3 L (2-4) % Baso % (Auto) 0.9 (0-2) % Neut # (Auto) 5100 (6618-7127) /uL Lymph # (Auto) 900 L (4961-6009) /uL [place]orne # (Auto) 400 (0-900) /uL Eos # (Auto) 0 (0-450) /uL Baso # (Auto) 100 (0-100) /uL Sodium 135 L (137-145) mmol/L Potassium 3.9 (3.4-5.1) mmol/L Chloride 94 L (98-107) mmol/L Carbon Dioxide 28 (22-32) mmol/L BUN 5 L (9-20) mg/dL Creatinine 0.50 L (0.66-1.25) mg/dL Estimated GFR > 60.0 (>60) mL/min BUN/Creatinine Ratio 10.0 (6-22) Glucose 114 H (70-100) mg/dL Calcium 9.1 (8.4-10.2) mg/dL Total Bilirubin 2.1 H (0.2-1.3) mg/dL AST 379 H (17-59) IU/L ALT 115 H (21-72) IU/L Alkaline Phosphatase 138 H (38-126) U/L Total Protein 9.1 H (6.3-8.2) g/dL Albumin 4.4 (3.5-5.0) g/dL Globulin 4.7 H (1.7-4.1) g/dL Albumin/Globulin Ratio 0.9 L (1.0-2.8) ECG Data Interpretation: EKG was read and interpreted by Dr. Winters. [facility] Narrative Medical decision making narrative: I suspect patient's symptoms are due to this which in anti-depression medication as all of his symptoms are side effects of these medications, his affect are probably accentuated by his consumption of alcohol. I am not concerned for a cranial bleed as he does not report any trauma, I am not concern for withdrawals as he states he has been drinking a half a liter of vodka for many days and has not been drinking that today as well as yesterday. Strict return precautions given and follow-up instructions discussed. <Gabrielle Winters, DO - Last Filed: 05/05/19 07:27> Lab Data Lab Results 05/04/19 05/04/19 Range/Units 13:35 13:35 WBC 6.5 (4.5-11.0) X10^3/uL RBC 4.45 L (4.5-5.9) X10^6/uL Hgb 14.6 (13.5-17.5) g/dL Hct 43.0 (41-53) % MCV 96.5 (80-100) fL MCH 32.8 (26-34) PG MCHC 34.0 (30-36) % RDW 13.7 (11.6-14.8) % Plt Count 177 (150-400) X10^3/uL Neut % (Auto) 78.6 H (50-75) % Lymph % (Auto) 13.9 L (25-40) % Cla[place]orne % (Auto) 6.3 (3-14) % Eos % (Auto) 0.3 L (2-4) % Baso % (Auto) 0.9 (0-2) % Neut # (Auto) 5100 (1470-1978) /uL Lymph # (Auto) 900 L (4455-8592) /uL Cla[place]orne # (Auto) 400 (0-900) /uL Eos # (Auto) 0 (0-450) /uL Baso # (Auto) 100 (0-100) /uL Sodium 135 L (137-145) mmol/L Potassium 3.9 (3.4-5.1) mmol/L Chloride 94 L (98-107) mmol/L Carbon Dioxide 28 (22-32) mmol/L BUN 5 L (9-20) mg/dL Creatinine 0.50 L (0.66-1.25) mg/dL Estimated GFR > 60.0 (>60) mL/min BUN/Creatinine Ratio 10.0 (6-22) Glucose 114 H (70-100) mg/dL Calcium 9.1 (8.4-10.2) mg/dL Total Bilirubin 2.1 H (0.2-1.3) mg/dL AST 379 H (17-59) IU/L ALT 115 H (21-72) IU/L Alkaline Phosphatase 138 H (38-126) U/L Total Protein 9.1 H (6.3-8.2) g/dL Albumin 4.4 (3.5-5.0) g/dL Globulin 4.7 H (1.7-4.1) g/dL Albumin/Globulin Ratio 0.9 L (1.0-2.8) Discharge Plan Departure Patient Disposition: Home Clinical Impression: Adverse reaction to SSRI antidepressant drug Qualifiers: Encounter type: initial encounter Qualified Code(s): T43.225A - Adverse effect of selective serotonin reuptake inhibitors, initial encounter Discharge Date/Time: 05/04/19 15:31 Interventions: ED Discharge Assessment Last Done: 05/04/19 15:31 Instructions: DI for Nausea -- Adult Activity Restrictions/Additional Instructions: Thank you for entrusting me with your care today. As discussed, I believe your symptoms are caused by a change in medications. Please follow up with Psychiatry in the next week to discuss your symptoms and any changes to the medication if they need to be made. I do not recommend stopping your antidepressants as this will cause more symptoms. I prescribed you some medication for nausea. Please return to the emergency department if he develops chest pain, shortness of breath, syncope, seizures, or high fevers. Prescriptions: New ondansetron HCl [Zofran] 4 mg tablet 4 mg PO Q8-12H PRN (Reason: nausea and vomiting) Qty: 7 RF: 0 No Action vitamin B complex tablet 1 tab PO DAILY RF: 0 lisinopril-hydrochlorothiazide 20-12.5 mg tablet 1 tab PO DAILY Qty: 90 RF: 1 omeprazole 20 mg capsule,delayed release(DR/EC) 20 mg PO Q DAY Qty: 90 RF: 1 duloxetine 60 mg capsule,delayed release(DR/EC) 60 mg PO DAILY RF: 0 Referrals: Tracee Knott PA-C [Primary Care Provider] - <Gabrielle Winters DO - Last Filed: 05/05/19 07:27> [facility] ED Attending Lashay Attestation: I was immediately available in the de partment for consultation. Documentation has been reviewed. I agree with assessment and plan.
[2019-05-04 13:35] VITALS: BP 175/97; PULSE 101; RESP 24; O2SAT 98
[2019-05-04] MEDS: LORazepam 2 MG/ML INJ 0.5 MG IV (13:46)
[2019-05-04] MEDS: SODIUM CHLORIDE 0.9% 1,000 ML 1000 ML IV (13:46)
[2019-05-04 13:47] LABS: Add Manual Diff / Slide Review NO; Basophils Absolute Auto 100 /uL (0-100); Basophils Percent Auto 0.9 % (0-2); Eosinophils Absolute Auto 0 /uL (0-450); Eosinophils Percent Auto 0.3 % (2-4); Hemoglobin 14.6 g/dL (13.5-17.5); Lymphocytes Absolute Auto 900 /uL (1100-4500); Lymphocytes Percent Auto 13.9 % (25-40); Mean Corpuscular Hemoglobin 32.8 PG (26-34); Mean Corpuscular Volume 96.5 fL (80-100); Monocytes Absolute Auto 400 /uL (0-900); Monocytes Percent Auto 6.3 % (3-14); Neutrophils Absolute Auto 5100 /uL (1500-7000); Neutrophils Percent Auto 78.6 % (50-75); Platelet Count 177 X10^3/uL (150-400); Red Blood Cell Count 4.45 X10^6/uL (4.5-5.9); Red Cell Distribution Width 13.7 % (11.6-14.8); White Blood Cell Count 6.5 X10^3/uL (4.5-11.0)
[2019-05-04 13:58] LABS: Alanine Aminotransferase 115 IU/L (21-72); Albumin 4.4 g/dL (3.5-5.0); Albumin Globulin Ratio 0.9 (1.0-2.8); Alkaline Phosphatase 138 U/L (38-126); Aspartate Aminotransferase 379 IU/L (17-59); Bilirubin Total 2.1 mg/dL (0.2-1.3); Blood Urea Nitrogen 5 mg/dL (9-20); Calcium 9.1 mg/dL (8.4-10.2); Carbon Dioxide 28 mmol/L (22-32); Chloride 94 mmol/L (98-107); Estimated Glomerular Filt Rate > 60.0 mL/min (>60); Globulin 4.7 g/dL (1.7-4.1); Glucose 114 mg/dL (70-100); HEMOLYSIS 41 (0-50); Potassium 3.9 mmol/L (3.4-5.1); Sodium 135 mmol/L (137-145); Total Protein 9.1 g/dL (6.3-8.2)
[2019-05-04 14:21] VITALS: BP 157/92; PULSE 98; RESP 22; O2SAT 95
[2019-05-04 15:27] VITALS: BP 149/80; PULSE 101; RESP 24; O2SAT 97
== END 2019-05-04 15:31 | disposition home or self-care (01) ==
PROVIDERS: Emergency Provider Nurse Practitioner; PCP Physician Assistant
DX: R11.2 Nausea with vomiting, unspecified (principal); R00.0 Tachycardia, unspecified; T43.225A Adverse effect of selective serotonin reuptake inhibitors, initial encounter
CPT/HCPCS: 36591; 80053; 85025; 93005; 96361; 96374; 99283; 99284; J2060

== ENCOUNTER 2019-05-14 22:35 | Emergency (ER) | payer OTHER, SELFPAY ==
[2019-05-14 22:39] VITALS: BP 191/107; PULSE 104; RESP 20; TEMP 36.4; O2SAT 96; BMI 42.0
[2019-05-14] MEDS: LIDOCAINE 1% W/EPI INJ 1 ML SUBCUT (23:40)
--- NOTE | 2019-05-15 00:08 | PC.NURSE ---
Patient bleeding stopped with cautery. Dressing applied d/t patient using CPAP at night. Extra bandaids given to patient
[2019-05-15 00:15] VITALS: BP 149/83; PULSE 90; RESP 16; O2SAT 100
--- NOTE | 2019-05-15 07:31 | ED_ITS ---
HPI - Skin/Abscess/Foreign Bdy General Chief complaint: Skin/Abscess/Foreign Body Stated complaint: PICKED AT LEFT SIDE FACE WONT STOP BLEEDING Time Seen by Provider: 05/14/19 22:42 Source: patient Mode of arrival: ambulatory Limitations: no limitations History of Present Illness HPI narrative: 33-year-old male nonsmoker with history of depression presents with a bleeding skin lesion since earlier this afternoon. His significant other was picking at it and thought it was a ?pimple? when it started bleeding. He has applied pressure for many hours and continues to bleed. He does not take blood thinners. He is admittedly anxious. He denies any significant pain. Onset (ago): hour(s) Tetanus up to date: yes Location: face Severity: moderate Exacerbating factors: none Context: none Treatments prior to arrival: none Related Data Home Medications Medication Instructions Recorded Confirmed vitamin B complex tablet 1 tab PO DAILY 11/02/18 05/04/19 duloxetine 60 mg PO DAILY 05/04/19 05/04/19 Previous Rx's Medication Instructions Recorded lisinopril 20 1 tab PO DAILY #90 tab 11/02/18 mg-hydrochlorothiazide 12.5 mg tablet omeprazole 20 mg capsule,delayed 20 mg PO Q DAY #90 cap 11/27/18 release ondansetron HCl [Zofran] 4 mg PO Q8-12H PRN #7 tab 05/04/19 Allergies Allergy/AdvReac Type Severity Reaction Status Date / Time Iodine and Iodide Containing Allergy Intermediate Hives Verified 05/04/19 14:15 Produc Review of Systems Constitutional Denies chills, Denies fever(s), Denies lethargy and Denies weakness Eyes Denies change in vision, Denies eye discharge, Denies irritation and Denies loss of vision ENT Ears, Nose, Mouth, and Throat: Denies change in voice, Denies neck pain and Denies sore throat Cardiovascular Denies chest pain, Denies irregular heart rhythm, Denies lightheadedness, Denies palpitations, Denies dyspnea, Denies dyspnea on exertion and Denies orthopnea Respiratory Denies cough, Denies dyspnea, Denies dyspnea on exertion and Denies wheezing Gastrointestinal Gastrointestinal: Denies abdominal pain, Denies change in bowel habits, Denies diarrhea, Denies nausea and Denies vomiting Genitourinary Denies hematuria, Denies flank pain, Denies urinary incontinence and Denies urinary urgency Musculoskeletal Denies neck pain Integumentary/Breasts Denies pruritus, Denies erythema, Denies rash and Reports wounds Neurologic Denies confusion, Denies loss of vision and Denies weakness Psychiatric Denies anxiety, Denies confusion, Denies depression, Denies homicidal ideation and Denies suicidal ideation Endocrine Denies palpitations Hematologic/Lymphatic Denies easy bruising Allergic/Immunologic Denies wheezing [facility] Medical History Irritable bowel syndrome (Acute Unknown) Liver disease (Acute Unknown) GERD (gastroesophageal reflux disease) (Chronic Unknown) H/O tinnitus (Chronic Unknown) Hypertension (Chronic Unknown) Substance abuse (Chronic Unknown) Social History Smoking Status: Never smoker second hand exposure: No alcohol intake: current (vodka everyday.) substance use type: does not use Social History Smoking Status: Never smoker second hand exposure: No alcohol intake: current (vodka everyday.) substance use type: does not use Exam Narrative Exam Narrative: GEN: AOx3 and in mild distress EYES: Pupils are equal, round, and reactive to light and accommodation. Extraoccular muscles are intact bilaterally. There is no subconjunctival hemorrhage or exudate. FACE: bleeding skin lesion on L side of face CHEST: Lungs are clear to auscultation bilaterally and free of wheezes, rales, or rhonchi. Heart rate is regular rhythm, there are no murmurs, clicks, rubs, or gallops. There is no chest wall tenderness. ABD: Abdomen is soft and nontender. There is no guarding or rebound. Bowel sounds are normal in all 4 quadrants. There is no mass or organomegaly. EXT: Full painless ROM of all extremities with no loss of sensation or strength. SKIN: Warm, pink, and dry. No erythema or rash Initial Vital Signs Initial Vital Signs: Vital Signs Temperature 97.5 F L 05/14/19 22:39 Pulse Rate 104 H 05/14/19 22:39 Respiratory Rate 20 05/14/19 22:39 Blood Pressure 191/107 H 05/14/19 22:39 Pulse Oximetry 96 05/14/19 22:39 Procedures [facility] – [place], [place] Procedure Name of Procedure: skin numbed with Lido/epi then bleeding controlled with electrocautery Side (if applicable): left Time out performed: Yes Technique/Description of procedure performed: cautery Patient tolerated procedure: Well Complications: none Course Orders Ordered: Discontinued Medications Lidocaine/Epinephrine (Xylocaine 1% W/Epi) 1 ml SUBCUT NOW ONE Stop: 05/14/19 23:36 Last Admin: 05/14/19 23:40 Dose: 1 ml Vital Signs - 8 hr 05/15/19 00:15 Pulse Rate 90 Respiratory Rate 16 Blood Pressure 149/83 H Pulse Oximetry 100 Discharge Plan Departure Patient Disposition: Home Clinical Impression: Hemorrhage of skin lesion Discharge Date/Time: 05/15/19 00:16 Interventions: ED Discharge Assessment Last Done: 05/15/19 00:15 Activity Restrictions/Additional Instructions: *You have been diagnosed with [bleeding skin lesion] *What to do: * continue to take medications as directed *Follow up with your primary care provider in 2-3 days, call for an appointment. Let them know you were seen in the Emergency Department and that we ask that you be seen in follow up *Return to ER if you should have any new, worsening or concerning symptoms Prescriptions: No Action vitamin B complex tablet 1 tab PO DAILY RF: 0 lisinopril-hydrochlorothiazide 20-12.5 mg tablet 1 tab PO DAILY Qty: 90 RF: 1 omeprazole 20 mg capsule,delayed release(DR/EC) 20 mg PO Q DAY Qty: 90 RF: 1 duloxetine 60 mg capsule,delayed release(DR/EC) 60 mg PO DAILY RF: 0 ondansetron HCl [Zofran] 4 mg tablet 4 mg PO Q8-12H PRN (Reason: nausea and vomiting) Qty: 7 RF: 0 Referrals: Tracee Knott PA-C [Primary Care Provider] -
== END 2019-05-15 00:16 | disposition home or self-care (01) ==
PROVIDERS: Emergency Provider Emergency Medicine; PCP Physician Assistant
DX: R23.3 Spontaneous ecchymoses (principal)
CPT/HCPCS: 99282

== ENCOUNTER 2019-07-05 05:25 | Emergency (ER) | payer SELFPAY ==
[2019-07-05 05:34] VITALS: BP 160/90; PULSE 92; RESP 20; TEMP 36.4; O2SAT 96
--- NOTE | 2019-07-05 05:43 | ED_ITS ---
HPI - Abdominal Pain <Francisoc Fernandes MD - Last Filed: 07/05/19 07:40> General Chief Complaint: Abdominal Pain Stated Complaint: thinks he has pancreatitis Time Seen by Provider: 07/05/19 05:42 Source: patient Mode of arrival: Ambulatory Limitations: no limitations History of Present Illness HPI narrative: The patient presents with epigastric abdominal pain. He is a daily heavy drinker. He thinks he has pancreatitis. He has prior history of alcoholic liver disease, it is not clearly has previously been diagnosed with pancreatitis. He describes gagging daily, not really vomiting. He claims of vomited blood yesterday, and today. He is vomiting right red blood. He excuses this with complaints of recurrent nose bleeds, he even thinks he has bleeding from his gums. He is not spitting out blood. He has no immediate epistaxis. He has no prior history of GI bleeding. He has never been diagnosed with ulcers, varices, or known into these for GI bleeding. His last alcoholic drink was yesterday. He is diaphoretic, nervous, and not feeling ill upon arrival. He last vomited some time this past night. He is a vague historian, lacking details on the above concerns. He is diaphoretic and tremulous. Related Data Home Medications Medication Instructions Recorded Confirmed vitamin B complex 1 tab PO DAILY 11/02/18 05/04/19 duloxetine 60 mg PO DAILY 05/04/19 05/04/19 Previous Rx's Medication Instructions Recorded lisinopril 20 1 tab PO DAILY #90 tab 11/02/18 mg-hydrochlorothiazide 12.5 mg tablet omeprazole 20 mg capsule,delayed 20 mg PO Q DAY #90 cap 11/27/18 release ondansetron HCl [Zofran] 4 mg PO Q8-12H PRN #7 tab 05/04/19 Allergies Allergy/AdvReac Type Severity Reaction Status Date / Time Iodine and Iodide Containing Allergy Intermediate Hives Verified 05/04/19 14:15 Produc Review of Systems <Francisco Fernandes MD - Last Filed: 07/05/19 07:40> Review of Systems ROS Unobtainable: All systems reviewed & are unremarkable except as noted in HPI and below Constitutional Constitutional: Reports as per HPI, Denies chills, Reports difficulty sleeping, Denies fever(s), Denies lethargy and Denies weakness Comments: Diaphoresis. Tremor. Eyes Eyes: Denies blurry vision, Denies change in vision, Denies eye discharge, Denies irritation and Denies loss of vision ENT Ears, Nose, Mouth, and Throat: Denies change in voice, Denies neck pain and Denies sore throat Comments: Complaints of nosebleed, complaints of bleeding from his gums. Cardiovascular Cardiovascular: Denies chest pain, Denies irregular heart rhythm, Denies lightheadedness, Denies palpitations, Denies dyspnea and Denies orthopnea Respiratory Respiratory: Denies cough, Denies dyspnea and Denies wheezing Gastrointestinal Gastrointestinal: Reports abdominal pain, Denies melena, Denies hematochezia, Denies change in bowel habits, Denies coffee ground emesis, Denies diarrhea, Reports vomiting and Reports hematemesis Genitourinary Comments: No urinary complaints Musculoskeletal Musculoskeletal: Denies back pain and Denies neck pain Integumentary/Breasts Skin/Breast: Denies pruritus, Denies erythema, Denies rash and Denies wounds Neurologic Neurologic: Denies confusion, Denies loss of vision and Denies weakness Psychiatric Psychiatric: Denies anxiety, Denies confusion and Denies depression Endocrine Endocrine: Denies palpitations Allergic/Immunologic Allergic/Immunologic: Denies wheezing PFSH <Francisco Fernandes MD - Last Filed: 07/05/19 07:40> Medical History GERD (gastroesophageal reflux disease) (Chronic Unknown) H/O tinnitus (Chronic Unknown) Hypertension (Chronic Unknown) Irritable bowel syndrome (Acute Unknown) Liver disease (Acute Unknown) Substance abuse (Chronic Unknown) Social History Smoking Status: Never smoker second hand exposure: No alcohol intake: current (vodka everyday.) substance use type: does not use Social History Smoking Status: Never smoker second hand exposure: No alcohol intake: current (vodka everyday.) substance use type: does not use Exam <Francisco Fernandes MD - Last Filed: 07/05/19 07:40> Initial Vital Signs Initial Vital Signs: Vital Signs Temperature 97.6 F 07/05/19 05:34 Pulse Rate 92 H 07/05/19 05:34 Respiratory Rate 20 07/05/19 05:34 Blood Pressure 160/90 H 07/05/19 05:34 Pulse Oximetry 96 07/05/19 05:34 Const General: cooperative and well developed Nutritional Appearance: well nourished Orientation: alert, awake and oriented x3 [facility] Head: normocephalic and atraumatic Ears: external ears normal and TM's normal bilaterally Nose: external nose normal Mouth: oral mucosae normal and moist mucous membranes Teeth and gingiva: dentition normal Throat: tonsils normal and uvula midline Eyes General: appearance normal, both eyes and all related structures Eyelids: eyelids normal Conjunctivae: conjunctivae normal Sclera: sclerae normal Pupils: PERRL EOM: EOM intact bilaterally Neck Neck: normal visual inspection, trachea midline, No lymphadenopathy, No midline deformity and No JVD Chest Chest: normal inspection of the chest Resp Effort & Inspection: normal respiratory effort, able to speak in complete sentences, no respiratory distress and no use of accessory muscles Auscultation: clear to auscultation bilaterally, no rales, no rhonchi and no wheezes Cardio Rate: tachycardic Rhythm: regular rhythm Heart Sounds: S1 normal, S2 normal, no click, no gallops, no murmurs and no rubs Pulses: normal peripheral pulses GI Inspection: non-distended and obesity Palpation: soft, no hepatosplenomegaly, guarding, No pulsatile mass and tender (Epigastric discomfort) Auscultation: normal bowel sounds Back/Spine/Pelvis Back: normal to inspection and No back tenderness Skin General: no rashes or lesions noted, jaundice and No petechiae Neuro General: alert, oriented x3, gait normal and no focal motor deficits Speech: speech normal Extrem General: full ROM, no clubbing, cyanosis or edema, no pedal edema and no calf tenderness Psych Appearance: well kempt Mental Status: mental status grossly normal Affect: anxious affect Attitude: cooperative Thought Content: normal Judgment: poor <Gabrielle Winters, - Last Filed: 07/05/19 13:25> Initial Vital Signs Initial Vital Signs: Vital Signs Temperature 97.6 F 07/05/19 05:34 Pulse Rate 92 H 07/05/19 05:34 Respiratory Rate 20 07/05/19 05:34 Blood Pressure 160/90 H 10/03/19 05:34 Pulse Oximetry 96 07/05/19 05:34 Course <Francisco Feranndes MD - Last Filed: 07/05/19 07:40> Course Course Narrative: 07:36. 07/05/2019. The patient has significant upper abdominal pain. He is a known alcoholic, labs are consistent with alcoholic hepatitis. He is a poor historian, history is suggestive of an upper GI bleed. He has no prior history of upper GI bleed. H/H are stable. Abdominal CT is pending. Evaluation the CT findings and disposition will be necessary. The patient's care has been discussed with the oncoming ER doctor, Dr. Winters. She will follow through with the patient's care. Orders Ordered: ED Orders 07/05/19 05:36 EKG-12 Lead Stat 07/05/19 05:40 Complete Blood Count AUTO DIFF Stat Comprehensive Metabolic Panel Stat Ethanol (ETOH) Stat Lipase Stat Magnesium Stat Partial Thromboplastin Time Stat Prothrombin Time INR Stat 07/05/19 06:00 Type and Screen Stat 07/05/19 06:05 Ammonia (NH3) Stat 07/05/19 07:09 CT abdomen pelvis w con Stat 07/05/19 08:45 Urine Drug Screen, Rapid Stat Discontinued Medications Diphenhydramine HCl (Benadryl) 50 mg IV NOW ONE Stop: 07/05/19 07:15 Last Admin: 07/05/19 07:21 Dose: 50 mg Documented by: DIYA Sodium Chloride (Normal Saline 0.9%) 1,000 mls @ 250 mls/hr IV CONT ANDRE Last Infusion: 07/05/19 08:58 Dose: 0 mls/hr Documented by: RSTONSharri Admin: 07/05/19 06:11 Dose: 250 mls/hr Documented by: MMCFARL Octreotide Acetate 500 mcg/ (Sodium Chloride) 101 mls @ 5.05 mls/hr IV CONT ANDRE Last Infusion: 07/05/19 08:55 Dose: 0 mcg/hr, 0 mls/hr Documented by: Admin: 07/05/19 06:00 Dose: 25 mcg/hr, 5.05 mls/hr Documented by: MMCFARL Magnesium Sulfate (Magnesium Sulfate) 2 gm in 50 mls @ 25 mls/hr IV NOW ONE Stop: 07/05/19 09:14 Last Admin: 07/05/19 08:57 Dose: Not Given Documented by: DIYA Sodium Chloride (Normal Saline 0.9%) 1,000 mls @ 1,000 mls/hr IV BOLUS ONE Stop: 07/05/19 08:38 Last Infusion: 07/05/19 10:14 Dose: 0 mls/hr Documented by: Admin: 07/05/19 08:57 Dose: 1,000 mls/hr Documented by: DIYA Lorazepam (Ativan) 2 mg IV NOW ONE Stop: 07/05/19 05:59 Last Admin: 07/05/19 06:11 Dose: 2 mg Documented by: MAHIN Methylprednisolone (Solu-Medrol 125 Mg Vial) 125 mg IV NOW ONE Stop: 07/05/19 07:15 Last Admin: 07/05/19 07:21 Dose: 125 mg Documented by: DIYA Octreotide Acetate (Sandostatin) 50 mcg IV NOW ONE Stop: 07/05/19 05:57 Last Admin: 07/05/19 06:11 Dose: 50 mcg Documented by: MAHIN Ondansetron HCl (Zofran) 4 mg IV NOW ONE Stop: 07/05/19 05:53 Last Admin: 07/05/19 06:08 Dose: 4 mg Documented by: MAHIN Pantoprazole Sodium (Protonix) 80 mg IV NOW ONE Stop: 07/05/19 05:53 Last Admin: 07/05/19 06:08 Dose: 80 mg Documented by: MAHIN Vital Signs Vital signs: Vital Signs - 8 hr 07/05/19 05:34 07/05/19 06:30 07/05/19 07:31 Temperature 97.6 F Pulse Rate 92 H 107 H 117 H Respiratory Rate 20 24 23 Blood Pressure Blood Pressure [Left Ankle] 160/90 H 158/92 H Blood Pressure [Right Arm] 155/81 H Pulse Oximetry 96 97 95 07/05/19 09:26 07/05/19 10:04 07/05/19 10:26 Temperature Pulse Rate 96 H 100 H Respiratory Rate 28 H 22 Blood Pressure 162/95 H Blood Pressure [Left Ankle] Blood Pressure [Right Arm] 161/76 H 162/95 H Pulse Oximetry 92 95 <Gabrielle Winters DO - Last Filed: 07/05/19 13:25> Orders Ordered: ED Orders 07/05/19 05:36 EKG-12 Lead Stat 07/05/19 05:40 Complete Blood Count AUTO DIFF Stat Comprehensive Metabolic Panel Stat Ethanol (ETOH) Stat Lipase Stat Magnesium Stat Partial Thromboplastin Time Stat Prothrombin Time INR Stat 07/05/19 06:00 Type and Screen Stat 07/05/19 06:05 Ammonia (NH3) Stat 07/05/19 07:09 CT abdomen pelvis w con Stat 07/05/19 08:45 Urine Drug Screen, Rapid Stat Discontinued Medications Diphenhydramine HCl (Benadryl) 50 mg IV NOW ONE Stop: 07/05/19 07:15 Last Admin: 07/05/19 07:21 Dose: 50 mg Documented by: TABATHAE Sodium Chloride (Normal Saline 0.9%) 1,000 mls @ 250 mls/hr IV CONT ANDRE Last Infusion: 07/05/19 08:58 Dose: 0 mls/hr Documented by: Admin: 07/05/19 06:11 Dose: 250 mls/hr Documented by: KADEL Octreotide Acetate 500 mcg/ (Sodium Chloride) 101 mls @ 5.05 mls/hr IV CONT ANDRE Last Infusion: 07/05/19 08:55 Dose: 0 mcg/hr, 0 mls/hr Documented by: Admin: 07/05/19 06:00 Dose: 25 mcg/hr, 5.05 mls/hr Documented by: CHARMAINEFARIvon Magnesium Sulfate (Magnesium Sulfate) 2 gm in 50 mls @ 25 mls/hr IV NOW ONE Stop: 07/05/19 09:14 Last Admin: 07/05/19 08:57 Dose: Not Given Documented by: TABATHAE Sodium Chloride (Normal Saline 0.9%) 1,000 mls @ 1,000 mls/hr IV BOLUS ONE Stop: 07/05/19 08:38 Last Infusion: 07/05/19 10:14 Dose: 0 mls/hr Documented by: Admin: 07/05/19 08:57 Dose: 1,000 mls/hr Documented by: DIYA Lorazepam (Ativan) 2 mg IV NOW ONE Stop: 07/05/19 05:59 Last Admin: 07/05/19 06:11 Dose: 2 mg Documented by: MMCFARL Methylprednisolone (Solu-Medrol 125 Mg Vial) 125 mg IV NOW ONE Stop: 07/05/19 07:15 Last Admin: 07/05/19 07:21 Dose: 125 mg Documented by: DIYA Octreotide Acetate (Sandostatin) 50 mcg IV NOW ONE Stop: 07/05/19 05:57 Last Admin: 07/05/19 06:11 Dose: 50 mcg Documented by: MAHIN Ondansetron HCl (Zofran) 4 mg IV NOW ONE Stop: 07/05/19 05:53 Last Admin: 07/05/19 06:08 Dose: 4 mg Documented by: MAHIN Pantoprazole Sodium (Protonix) 80 mg IV NOW ONE Stop: 07/05/19 05:53 Last Admin: 07/05/19 06:08 Dose: 80 mg Documented by: MAHIN Vital Signs Vital signs: Vital Signs - 8 hr 07/05/19 05:34 07/05/19 06:30 07/05/19 07:31 Temperature 97.6 F Pulse Rate 92 H 107 H 117 H Respiratory Rate 20 24 23 Blood Pressure Blood Pressure [Left Ankle] 160/90 H 158/92 H Blood Pressure [Right Arm] 155/81 H Pulse Oximetry 96 97 95 07/05/19 09:26 07/05/19 10:04 07/05/19 10:26 Temperature Pulse Rate 96 H 100 H Respiratory Rate 28 H 22 Blood Pressure 162/95 H Blood Pressure [Left Ankle] Blood Pressure [Right Arm] 161/76 H 162/95 H Pulse Oximetry 92 95 MDM - Abdominal Pain <Francisco Fernandes MD - Last Filed: 07/05/19 07:40> Lab Data Result diagrams: 07/05/19 05:40 07/05/19 05:40 Labs: Lab Results 07/05/19 07/05/19 07/05/19 Range/Units 05:40 05:40 05:40 WBC 9.2 (4.5-11.0) X10^3/uL RBC 4.68 (4.5-5.9) X10^6/uL Hgb 15.4 (13.5-17.5) g/dL Hct 44.3 (41-53) % MCV 94.7 (80-100) fL MCH 32.9 (26-34) PG MCHC 34.8 (30-36) % RDW 13.8 (11.6-14.8) % Plt Count 232 (150-400) X10^3/uL Neut % (Auto) 83.3 H (50-75) % Lymph % (Auto) 10.2 L (25-40) % [place] % (Auto) 5.9 (3-14) % Eos % (Auto) 0.0 L (2-4) % Baso % (Auto) 0.6 (0-2) % Neut # (Auto) 7700 H (4358-3995) /uL Lymph # (Auto) 900 L (7133-4027) /uL [place] # (Auto) 500 (0-900) /uL Eos # (Auto) 0 (0-450) /uL Baso # (Auto) 100 (0-100) /uL PT 15.5 H (10.1-12.7) SECONDS INR 1.3 (0.9-1.3) APTT 39 H (26.4-36.2) SECONDS Sodium 136 L (137-145) mmol/L Potassium 3.8 (3.4-5.1) mmol/L Chloride 96 L (98-107) mmol/L Carbon Dioxide 27 (22-32) mmol/L BUN 7 L (9-20) mg/dL Creatinine 0.60 L (0.66-1.25) mg/dL Estimated GFR > 60.0 (>60) mL/min BUN/Creatinine Ratio 11.7 (6-22) Glucose 149 H (70-100) mg/dL Calcium 9.7 (8.4-10.2) mg/dL Magnesium (1.6-2.3) mg/dL Total Bilirubin 3.6 H (0.2-1.3) mg/dL AST 312 H (17-59) IU/L ALT 73 H (21-72) IU/L Alkaline Phosphatase 189 H (38-126) U/L Ammonia (9-30) umol/L Total Protein 9.3 H (6.3-8.2) g/dL Albumin 4.2 (3.5-5.0) g/dL Globulin 5.1 H (1.7-4.1) g/dL Albumin/Globulin Ratio 0.8 L (1.0-2.8) Lipase 224 (23-300) U/L U Morph 300 ng/mL cutoff (Negative) Ur Oxycodone Screen (Negative) Urine Methadone Screen (Negative) Ur Barbiturates Screen (Negative) U Tricyclic Antidepress (Negative) Ur Phencyclidine Scrn (Negative) Ur Amphetamines Screen (Negative) U Methamphetamines Scrn (Negative) Ur MDMA Scrn (Ecstasy) (Negative) U Benzodiazepines Scrn (Negative) Urine Cocaine Screen (Negative) U Marijuana (THC) Screen (Negative) Ethyl Alcohol ( - 10) mg/dL Blood Type Antibody Screen 07/05/19 07/05/19 07/05/19 Range/Units 05:40 05:40 06:00 WBC (4.5-11.0) X10^3/uL RBC (4.5-5.9) X10^6/uL Hgb (13.5-17.5) g/dL Hct (41-53) % MCV (80-100) fL MCH (26-34) PG MCHC (30-36) % RDW (11.6-14.8) % Plt Count (150-400) X10^3/uL Neut % (Auto) (50-75) % Lymph % (Auto) (25-40) % [place] % (Auto) (3-14) % Eos % (Auto) (2-4) % Baso % (Auto) (0-2) % Neut # (Auto) (6331-5764) /uL Lymph # (Auto) (2922-1118) /uL [place] # (Auto) (0-900) /uL Eos # (Auto) (0-450) /uL Baso # (Auto) (0-100) /uL PT (10.1-12.7) SECONDS INR (0.9-1.3) APTT (26.4-36.2) SECONDS Sodium (137-145) mmol/L Potassium (3.4-5.1) mmol/L Chloride (98-107) mmol/L Carbon Dioxide (22-32) mmol/L BUN (9-20) mg/dL Creatinine (0.66-1.25) mg/dL Estimated GFR (>60) mL/min BUN/Creatinine Ratio (6-22) Glucose (70-100) mg/dL Calcium (8.4-10.2) mg/dL Magnesium 1.3 L (1.6-2.3) mg/dL Total Bilirubin (0.2-1.3) mg/dL AST (17-59) IU/L ALT (21-72) IU/L Alkaline Phosphatase (38-126) U/L Ammonia (9-30) umol/L Total Protein (6.3-8.2) g/dL Albumin (3.5-5.0) g/dL Globulin (1.7-4.1) g/dL Albumin/Globulin Ratio (1.0-2.8) Lipase (23-300) U/L U Morph 300 ng/mL cutoff (Negative) Ur Oxycodone Screen (Negative) Urine Methadone Screen (Negative) Ur Barbiturates Screen (Negative) U Tricyclic Antidepress (Negative) Ur Phencyclidine Scrn (Negative) Ur Amphetamines Screen (Negative) U Methamphetamines Scrn (Negative) Ur MDMA Scrn (Ecstasy) (Negative) U Benzodiazepines Scrn (Negative) Urine Cocaine Screen (Negative) U Marijuana (THC) Screen (Negative) Ethyl Alcohol < 10 ( - 10) mg/dL Blood Type A Negative Antibody Screen Negative 07/05/19 07/05/19 Range/Units 06:05 08:45 WBC (4.5-11.0) X10^3/uL RBC (4.5-5.9) X10^6/uL Hgb (13.5-17.5) g/dL Hct (41-53) % MCV (80-100) fL MCH (26-34) PG MCHC (30-36) % RDW (11.6-14.8) % Plt Count (150-400) X10^3/uL Neut % (Auto) (50-75) % Lymph % (Auto) (25-40) % [place] % (Auto) (3-14) % Eos % (Auto) (2-4) % Baso % (Auto) (0-2) % Neut # (Auto) (1882-7887) /uL Lymph # (Auto) (5819-0123) /uL [place] # (Auto) (0-900) /uL Eos # (Auto) (0-450) /uL Baso # (Auto) (0-100) /uL PT (10.1-12.7) SECONDS INR (0.9-1.3) APTT (26.4-36.2) SECONDS Sodium (137-145) mmol/L Potassium (3.4-5.1) mmol/L Chloride (98-107) mmol/L Carbon Dioxide (22-32) mmol/L BUN (9-20) mg/dL Creatinine (0.66-1.25) mg/dL Estimated GFR (>60) mL/min BUN/Creatinine Ratio (6-22) Glucose (70-100) mg/dL Calcium (8.4-10.2) mg/dL Magnesium (1.6-2.3) mg/dL Total Bilirubin (0.2-1.3) mg/dL AST (17-59) IU/L ALT (21-72) IU/L Alkaline Phosphatase (38-126) U/L Ammonia 24.0 (9-30) umol/L Total Protein (6.3-8.2) g/dL Albumin (3.5-5.0) g/dL Globulin (1.7-4.1) g/dL Albumin/Globulin Ratio (1.0-2.8) Lipase (23-300) U/L U Morph 300 ng/mL cutoff Negative (Negative) Ur Oxycodone Screen Negative (Negative) Urine Methadone Screen Negative (Negative) Ur Barbiturates Screen Negative (Negative) U Tricyclic Antidepress Negative (Negative) Ur Phencyclidine Scrn Negative (Negative) Ur Amphetamines Screen Negative (Negative) U Methamphetamines Scrn Negative (Negative) Ur MDMA Scrn (Ecstasy) Negative (Negative) U Benzodiazepines Scrn Negative (Negative) Urine Cocaine Screen Negative (Negative) U Marijuana (THC) Screen Negative (Negative) Ethyl Alcohol ( - 10) mg/dL Blood Type Antibody Screen <Gabrielle Winters, DO - Last Filed: 07/05/19 13:25> Lab Data Attestation: I reviewed the patient's lab results. Labs: Lab Results 07/05/19 07/05/19 07/05/19 Range/Units 05:40 05:40 05:40 WBC 9.2 (4.5-11.0) X10^3/uL RBC 4.68 (4.5-5.9) X10^6/uL Hgb 15.4 (13.5-17.5) g/dL Hct 44.3 (41-53) % MCV 94.7 (80-100) fL MCH 32.9 (26-34) PG MCHC 34.8 (30-36) % RDW 13.8 (11.6-14.8) % Plt Count 232 (150-400) X10^3/uL Neut % (Auto) 83.3 H (50-75) % Lymph % (Auto) 10.2 L (25-40) % [place] % (Auto) 5.9 (3-14) % Eos % (Auto) 0.0 L (2-4) % Baso % (Auto) 0.6 (0-2) % Neut # (Auto) 7700 H (3096-7606) /uL Lymph # (Auto) 900 L (0292-5963) /uL [place] # (Auto) 500 (0-900) /uL Eos # (Auto) 0 (0-450) /uL Baso # (Auto) 100 (0-100) /uL PT 15.5 H (10.1-12.7) SECONDS INR 1.3 (0.9-1.3) APTT 39 H (26.4-36.2) SECONDS Sodium 136 L (137-145) mmol/L Potassium 3.8 (3.4-5.1) mmol/L Chloride 96 L (98-107) mmol/L Carbon Dioxide 27 (22-32) mmol/L BUN 7 L (9-20) mg/dL Creatinine 0.60 L (0.66-1.25) mg/dL Estimated GFR > 60.0 (>60) mL/min BUN/Creatinine Ratio 11.7 (6-22) Glucose 149 H (70-100) mg/dL Calcium 9.7 (8.4-10.2) mg/dL Magnesium (1.6-2.3) mg/dL Total Bilirubin 3.6 H (0.2-1.3) mg/dL AST 312 H (17-59) IU/L ALT 73 H (21-72) IU/L Alkaline Phosphatase 189 H (38-126) U/L Ammonia (9-30) umol/L Total Protein 9.3 H (6.3-8.2) g/dL Albumin 4.2 (3.5-5.0) g/dL Globulin 5.1 H (1.7-4.1) g/dL Albumin/Globulin Ratio 0.8 L (1.0-2.8) Lipase 224 (23-300) U/L U Morph 300 ng/mL cutoff (Negative) Ur Oxycodone Screen (Negative) Urine Methadone Screen (Negative) Ur Barbiturates Screen (Negative) U Tricyclic Antidepress (Negative) Ur Phencyclidine Scrn (Negative) Ur Amphetamines Screen (Negative) U Methamphetamines Scrn (Negative) Ur MDMA Scrn (Ecstasy) (Negative) U Benzodiazepines Scrn (Negative) Urine Cocaine Screen (Negative) U Marijuana (THC) Screen (Negative) Ethyl Alcohol ( - 10) mg/dL Blood Type Antibody Screen 07/05/19 07/05/19 07/05/19 Range/Units 05:40 05:40 06:00 WBC (4.5-11.0) X10^3/uL RBC (4.5-5.9) X10^6/uL Hgb (13.5-17.5) g/dL Hct (41-53) % MCV (80-100) fL MCH (26-34) PG MCHC (30-36) % RDW (11.6-14.8) % Plt Count (150-400) X10^3/uL Neut % (Auto) (50-75) % Lymph % (Auto) (25-40) % [place] % (Auto) (3-14) % Eos % (Auto) (2-4) % Baso % (Auto) (0-2) % Neut # (Auto) (6687-3904) /uL Lymph # (Auto) (2778-0660) /uL [place] # (Auto) (0-900) /uL Eos # (Auto) (0-450) /uL Baso # (Auto) (0-100) /uL PT (10.1-12.7) SECONDS INR (0.9-1.3) APTT (26.4-36.2) SECONDS Sodium (137-145) mmol/L Potassium (3.4-5.1) mmol/L Chloride (98-107) mmol/L Carbon Dioxide (22-32) mmol/L BUN (9-20) mg/dL Creatinine (0.66-1.25) mg/dL Estimated GFR (>60) mL/min BUN/Creatinine Ratio (6-22) Glucose (70-100) mg/dL Calcium (8.4-10.2) mg/dL Magnesium 1.3 L (1.6-2.3) mg/dL Total Bilirubin (0.2-1.3) mg/dL AST (17-59) IU/L ALT (21-72) IU/L Alkaline Phosphatase (38-126) U/L Ammonia (9-30) umol/L Total Protein (6.3-8.2) g/dL Albumin (3.5-5.0) g/dL Globulin (1.7-4.1) g/dL Albumin/Globulin Ratio (1.0-2.8) Lipase (23-300) U/L U Morph 300 ng/mL cutoff (Negative) Ur Oxycodone Screen (Negative) Urine Methadone Screen (Negative) Ur Barbiturates Screen (Negative) U Tricyclic Antidepress (Negative) Ur Phencyclidine Scrn (Negative) Ur Amphetamines Screen (Negative) U Methamphetamines Scrn (Negative) Ur MDMA Scrn (Ecstasy) (Negative) U Benzodiazepines Scrn (Negative) Urine Cocaine Screen (Negative) U Marijuana (THC) Screen (Negative) Ethyl Alcohol < 10 ( - 10) mg/dL Blood Type A Negative Antibody Screen Negative 07/05/19 07/05/19 Range/Units 06:05 08:45 WBC (4.5-11.0) X10^3/uL RBC (4.5-5.9) X10^6/uL Hgb (13.5-17.5) g/dL Hct (41-53) % MCV (80-100) fL MCH (26-34) PG MCHC (30-36) % RDW (11.6-14.8) % Plt Count (150-400) X10^3/uL Neut % (Auto) (50-75) % Lymph % (Auto) (25-40) % [place] % (Auto) (3-14) % Eos % (Auto) (2-4) % Baso % (Auto) (0-2) % Neut # (Auto) (2517-8682) /uL Lymph # (Auto) (7379-2038) /uL [place] # (Auto) (0-900) /uL Eos # (Auto) (0-450) /uL Baso # (Auto) (0-100) /uL PT (10.1-12.7) SECONDS INR (0.9-1.3) APTT (26.4-36.2) SECONDS Sodium (137-145) mmol/L Potassium (3.4-5.1) mmol/L Chloride (98-107) mmol/L Carbon Dioxide (22-32) mmol/L BUN (9-20) mg/dL Creatinine (0.66-1.25) mg/dL Estimated GFR (>60) mL/min BUN/Creatinine Ratio (6-22) Glucose (70-100) mg/dL Calcium (8.4-10.2) mg/dL Magnesium (1.6-2.3) mg/dL Total Bilirubin (0.2-1.3) mg/dL AST (17-59) IU/L ALT (21-72) IU/L Alkaline Phosphatase (38-126) U/L Ammonia 24.0 (9-30) umol/L Total Protein (6.3-8.2) g/dL Albumin (3.5-5.0) g/dL Globulin (1.7-4.1) g/dL Albumin/Globulin Ratio (1.0-2.8) Lipase (23-300) U/L U Morph 300 ng/mL cutoff Negative (Negative) Ur Oxycodone Screen Negative (Negative) Urine Methadone Screen Negative (Negative) Ur Barbiturates Screen Negative (Negative) U Tricyclic Antidepress Negative (Negative) Ur Phencyclidine Scrn Negative (Negative) Ur Amphetamines Screen Negative (Negative) U Methamphetamines Scrn Negative (Negative) Ur MDMA Scrn (Ecstasy) Negative (Negative) U Benzodiazepines Scrn Negative (Negative) Urine Cocaine Screen Negative (Negative) U Marijuana (THC) Screen Negative (Negative) Ethyl Alcohol ( - 10) mg/dL Blood Type Antibody Screen Imaging Data CT scan - abdomen: Radiologist's impression: PROCEDURE: CT ABDOMEN PELVIS W CON INDICATIONS: Epigastric pain. TECHNIQUE: After the administration of oral and intravenous contrast, 5 mm thick sections acquired from the diaphragms to the symphysis. 5 mm thick coronal and sagittal reformats were performed. For radiation dose reduction, the following was used: automated exposure control, adjustment of mA and/or kV according to patient size. COMPARISON: [facility], CT, ABDOMEN/PELVIS WITH CONTRAST, 05/29/2014, 9:27. FINDINGS: Image quality: Excellent. ABDOMEN: Lung bases: No acute consolidation. Scattered subsegmental atelectasis and/or scarring. No pleural effusion. Solid organs: Hepatomegaly is present and diffuse hepatic steatosis. Perihepatic ascites is noted. Gallbladder demonstrates mildly increased dependent intraluminal attenuation raising the possibility of debris however no definite radiopaque calculus seen. Biliary system is non-dilated. Pancreas enhances normally. Mild hazy attenuation in the region of the pancreatic head and body although the exact etiology is unclear. Recommend correlation with pancreatic enzymes Spleen is enlarged. There is perisplenic ascites. No adrenal nodules. Kidneys are normal in size and enhancement, without hydronephrosis. Peritoneum and bowel: Stomach unremarkable. No evidence of bowel obstruction however there is diffuse small bowel wall thickening and mucosal fold prominence, most notably seen on image 84 series 2. There is also low-grade long segment colonic wall thickening primarily involving the transverse and ascending colon. Scattered ascites is noted. Normal appendix. Rectum is decompressed and otherwise unremarkable Nodes and vessels: No retroperitoneal or mesenteric adenopathy. There is scattered hazy mesenteric fat attenuation. Aorta and inferior vena cava are normal in caliber. Miscellaneous: Small fat-containing umbilical hernia PELVIS: Genitourinary: Bladder is partially collapsed otherwise unremarkable Miscellaneous: No inguinal hernias or adenopathy. Bones: No suspicious bony lesions. No vertebral body compression fractures. IMPRESSION: Hepatosplenomegaly. Mild scattered, and perihepatic and perisplenic ascites. Diffuse hazy mesenteric attenuation (including adjacent to the pancreas) suggestive of vascular congestion. Recommend correlation with pancreatic enzymes to exclude acute pancreatitis. Diffuse small bowel and to a lesser extent colonic mural thickening and mucosal fold prominence. This could be related to severe hypoproteinemia in the setting of chronic liver disease although cannot exclude infectious or inflammatory enteritis/colitis, recommend clinical correlation. Mildly increased, layering dependent intraluminal attenuation within the gallb ladder raising possibility of debris versus vicarious contrast excretion, although this could be further assessed with dedicated ultrasound as clinically necessary. Dictated by: Robert Vasquez M.D. on 07/05/2019 at 8:22 MDM Narrative Medical decision making narrative: Patient signed out to me by Dr. Fernandes. I have seen evaluated patient myself an independent exam. He has had no vomiting since he has been in the emergency department. CT does not show any evidence of varices hemoglobin hematocrit stable not a variceal bleed octreotide drip will be stopped. He got a dose of Protonix. He continues to be tachycardic he will get 2nd L of IV fluids. CT does show some mild pancreatitis however lipase is 224. He is tolerating oral fluids. Liver enzymes are elevated at baseline. CT does show some level of ascites. I have had a chas discussion with him about needing to stop alcohol. Patient's heart rate improved after 2nd leader of IV fluid he has a ride home. Discharge Plan Departure Patient Disposition: Home Clinical Impression: Alcohol dependence Qualifiers: Substance use status: in withdrawal Complication of substance-induced condition: with unspecified complication Qualified Code(s): F10.239 - Alcohol dependence with withdrawal, unspecified Alcoholic hepatitis Qualifiers: Ascites presence: unspecified Qualified Code(s): K70.10 - Alcoholic hepatitis without ascites Discharge Date/Time: 07/05/19 10:29 Instructions: DI for Alcohol Abuse Activity Restrictions/Additional Instructions: *You have been diagnosed with alcohol abuse *What to do: Very mild ascites which is sign of liver failure. It is strongly recommended that stop drinking alcohol. *Continue to take medications as directed *Follow up with your primary care provider in 2-3 days *Return to ER if you should have increased abdominal pain persistent vomiting or any new, worsening or concerning symptoms Prescriptions: No Action vitamin B complex tablet 1 tab PO DAILY RF: 0 lisinopril-hydrochlorothiazide 20-12.5 mg tablet 1 tab PO DAILY Qty: 90 RF: 1 omeprazole 20 mg capsule,delayed release(DR/EC) 20 mg PO Q DAY Qty: 90 RF: 1 duloxetine 60 mg capsule,delayed release(DR/EC) 60 mg PO DAILY RF: 0 ondansetron HCl [Zofran] 4 mg tablet 4 mg PO Q8-12H PRN (Reason: nausea and vomiting) Qty: 7 RF: 0 Referrals: Tracee Knott PA-C [Primary Care Provider] -
[2019-07-05 05:57] LABS: Add Manual Diff / Slide Review NO; Basophils Absolute Auto 100 /uL (0-100); Basophils Percent Auto 0.6 % (0-2); Eosinophils Absolute Auto 0 /uL (0-450); Hematocrit 44.3 % (41-53); Hemoglobin 15.4 g/dL (13.5-17.5); Lymphocytes Absolute Auto 900 /uL (1100-4500); Lymphocytes Percent Auto 10.2 % (25-40); Mean Corpuscular HGB Conc 34.8 % (30-36); Mean Corpuscular Hemoglobin 32.9 PG (26-34); Mean Corpuscular Volume 94.7 fL (80-100); Monocytes Absolute Auto 500 /uL (0-900); Monocytes Percent Auto 5.9 % (3-14); Neutrophils Absolute Auto 7700 /uL (1500-7000); Neutrophils Percent Auto 83.3 % (50-75); Platelet Count 232 X10^3/uL (150-400); Red Blood Cell Count 4.68 X10^6/uL (4.5-5.9); Red Cell Distribution Width 13.8 % (11.6-14.8); White Blood Cell Count 9.2 X10^3/uL (4.5-11.0)
[2019-07-05] MEDS: OCTREOTIDE 500 MCG in SODIUM CHLORIDE 0.9% 100 ML 5.05 ML IV (06:00)
[2019-07-05 06:03] LABS: INR 1.3 (0.9-1.3); Prothrombin Time 15.5 SECONDS (10.1-12.7)
[2019-07-05 06:05] LABS: PTT Partial Thromboplastin Tim 39 SECONDS (26.4-36.2)
[2019-07-05] MEDS: PANTOPRAZOLE 40 MG VIAL 80 MG IV (06:08)
[2019-07-05] MEDS: ONDANSETRON 4 MG/2 ML INJ IV (06:08)
[2019-07-05 06:09] LABS: Ethanol (ETOH) < 10 mg/dL
[2019-07-05 06:11] LABS: Alanine Aminotransferase 73 IU/L (21-72); Albumin 4.2 g/dL (3.5-5.0); Albumin Globulin Ratio 0.8 (1.0-2.8); Alkaline Phosphatase 189 U/L (38-126); Aspartate Aminotransferase 312 IU/L (17-59); BUN Creatinine Ratio 11.7 (6-22); Bilirubin Total 3.6 mg/dL (0.2-1.3); Blood Urea Nitrogen 7 mg/dL (9-20); Calcium 9.7 mg/dL (8.4-10.2); Carbon Dioxide 27 mmol/L (22-32); Chloride 96 mmol/L (98-107); Estimated Glomerular Filt Rate > 60.0 mL/min (>60); Globulin 5.1 g/dL (1.7-4.1); Glucose 149 mg/dL (70-100); HEMOLYSIS < 15 (0-50); Lipase 224 U/L (23-300); Potassium 3.8 mmol/L (3.4-5.1); Sodium 136 mmol/L (137-145); Total Protein 9.3 g/dL (6.3-8.2)
[2019-07-05] MEDS: OCTREOTIDE 100 MCG/ML VIAL 50 MCG IV (06:11)
[2019-07-05] MEDS: LORazepam 2 MG/ML INJ IV (06:11)
[2019-07-05] MEDS: SODIUM CHLORIDE 0.9% 1,000 ML 250 ML IV (06:11)
[2019-07-05 06:20] LABS: Magnesium 1.3 mg/dL (1.6-2.3)
[2019-07-05 06:30] VITALS: BP 158/92; PULSE 107; RESP 24; O2SAT 97
--- NOTE | 2019-07-05 07:09 | DI.CT.S_ITS ---
PROCEDURE: CT ABDOMEN PELVIS W CON INDICATIONS: Epigastric pain. TECHNIQUE: After the administration of oral and intravenous contrast, 5 mm thick sections acquired from the diaphragms to the symphysis. 5 mm thick coronal and sagittal reformats were performed. For radiation dose reduction, the following was used: automated exposure control, adjustment of mA and/or kV according to patient size. COMPARISON: [facility], CT, ABDOMEN/PELVIS WITH CONTRAST, 05/29/2014, 9:27. FINDINGS: Image quality: Excellent. ABDOMEN: Lung bases: No acute consolidation. Scattered subsegmental atelectasis and/or scarring. No pleural effusion. Solid organs: Hepatomegaly is present and diffuse hepatic steatosis. Perihepatic ascites is noted. Gallbladder demonstrates mildly increased dependent intraluminal attenuation raising the possibility of debris however no definite radiopaque calculus seen. Biliary system is non-dilated. Pancreas enhances normally. Mild hazy attenuation in the region of the pancreatic head and body although the exact etiology is unclear. Recommend correlation with pancreatic enzymes Spleen is enlarged. There is perisplenic ascites. No adrenal nodules. Kidneys are normal in size and enhancement, without hydronephrosis. Peritoneum and bowel: Stomach unremarkable. No evidence of bowel obstruction however there is diffuse small bowel wall thickening and mucosal fold prominence, most notably seen on image 84 series 2. There is also low-grade long segment colonic wall thickening primarily involving the transverse and ascending colon. Scattered ascites is noted. Normal appendix. Rectum is decompressed and otherwise unremarkable Nodes and vessels: No retroperitoneal or mesenteric adenopathy. There is scattered hazy mesenteric fat attenuation. Aorta and inferior vena cava are normal in caliber. Miscellaneous: Small fat-containing umbilical hernia PELVIS: Genitourinary: Bladder is partially collapsed otherwise unremarkable Miscellaneous: No inguinal hernias or adenopathy. Bones: No suspicious bony lesions. No vertebral body compression fractures. IMPRESSION: Hepatosplenomegaly. Mild scattered, and perihepatic and perisplenic ascites. Diffuse hazy mesenteric attenuation (including adjacent to the pancreas) suggestive of vascular congestion. Recommend correlation with pancreatic enzymes to exclude acute pancreatitis. Diffuse small bowel and to a lesser extent colonic mural thickening and mucosal fold prominence. This could be related to severe hypoproteinemia in the setting of chronic liver disease although cannot exclude infectious or inflammatory enteritis/colitis, recommend clinical correlation. Mildly increased, layering dependent intraluminal attenuation within the gallbladder raising possibility of debris versus vicarious contrast excretion, although this could be further assessed with dedicated ultrasound as clinically necessary. Dictated by: Robert Vasquez M.D. on 07/05/2019 at 8:22 Approved by: Robert Vasquez M.D. on 07/05/2019 at 8:31
[2019-07-05] MEDS: methylPREDNISolone 125 MG/2 ML VIAL IV (07:21)
[2019-07-05] MEDS: diphenhydrAMINE 50 MG/ML VIAL IV (07:21)
[2019-07-05 07:31] VITALS: BP 155/81; PULSE 117; RESP 23; O2SAT 95
[2019-07-05] MEDS: SODIUM CHLORIDE 0.9% 1,000 ML 1000 ML IV (08:57)
[2019-07-05 09:10] LABS: Ur Creatinine Normal (Normal); Ur Specific Gravity Normal (Normal); Urine pH Normal (Normal)
[2019-07-05 09:11] LABS: UR Morphine/Opiate cutoff 300 Negative (Negative); Urine Amphetamines Negative (Negative); Urine Barbiturates Negative (Negative); Urine Benzodiazepines Negative (Negative); Urine Cocaine Negative (Negative); Urine MDMA Negative (Negative); Urine Methadone Negative (Negative); Urine Methamphetamines Negative (Negative); Urine Oxycodone Negative (Negative); Urine Phencyclidine Negative (Negative); Urine Tetrahydrocannabinol Negative (Negative); Urine Tricyclic Antidepressant Negative (Negative)
[2019-07-05 09:26] VITALS: BP 161/76; PULSE 96; RESP 28; O2SAT 92
[2019-07-05 10:04] VITALS: BP 162/95
[2019-07-05 10:26] VITALS: BP 162/95; PULSE 100; RESP 22; O2SAT 95
== END 2019-07-05 10:29 | disposition home or self-care (01) ==
PROVIDERS: Emergency Medicine; Emergency Provider Emergency Medicine; Family Provider Physician Assistant; PCP Physician Assistant
DX: F10.239 Alcohol dependence with withdrawal, unspecified (principal); K70.10 Alcoholic hepatitis without ascites; R00.0 Tachycardia, unspecified; K92.0 Hematemesis
CPT/HCPCS: 36415; 74177; 80053; 80305; 80320; 82140; 83690; 83735; 85025; 85610; 85730; 86850; 86900; 86901; 93005; 96361; 96365; 96366; 96375; 99284; 99285; C9113; J1200; J2060; J2354; J2405; J2930

== ENCOUNTER 2019-08-08 14:24 | Emergency (ER) | payer OTHER, SELFPAY ==
[2019-08-08] VITALS (11 sets, daily range): BP systolic 120–147; BP diastolic 51–83; PULSE 109–130; RESP 16–29; TEMP 36.5–37.1; O2SAT 96–99; BMI 37.8
--- NOTE | 2019-08-08 15:08 | ED_ITS ---
HPI - Alcohol <ALINA Gonzalez - Last Filed: 08/08/19 21:17> General Chief Complaint: Toxicology Problem Stated Complaint: anahy withdrawl Time Seen by Provider: 08/08/19 15:01 Source: patient Mode of arrival: Ambulatory Limitations: no limitations History of Present Illness HPI narrative: The patient is a [age] year old male nonsmoker with history of alcoholism who presents with a chief complaint of ?over did it on Tuesday.He states he usually drinks one to zero point five L of vodka per day. He states that he has been an email to keep down any alcohol since Tuesday as he has profuse vomiting. He denies any vomiting of blood. He states that he had a nose bleed when he arrived to the emergency department. He complains of current nausea vomiting, feeling like his heart is racing, tremors. He has tried to take down small amounts of alcohol in order to stave off tremors. He adamantly denies any GI bleeding. He denies any chest pain or shortness of breath. He d enies any thoughts of hurting himself or anybody else. He adamantly states that he does not want any help quitting alcohol. He denies any other drug use. Related Data Home Medications Medication Instructions Recorded Confirmed vitamin B complex 1 tab PO DAILY 11/02/18 08/08/19 omeprazole 20 mg PO DAILY 08/08/19 08/08/19 Previous Rx's Medication Instructions Recorded lisinopril 20 1 tab PO DAILY #90 tab 11/02/18 mg-hydrochlorothiazide 12.5 mg tablet ondansetron 4 mg PO Q6H PRN #20 tab 08/08/19 Allergies Allergy/AdvReac Type Severity Reaction Status Date / Time Iodine and Iodide Containing Allergy Intermediate Hives Verified 05/04/19 14:15 Produc Review of Systems <ALINA Gonzalez - Last Filed: 08/08/19 21:17> Review of Systems Narrative: GENERAL: Denies chills, fatigue, malaise, fever, sweats. HEENT: Denies sinus pain, ear pain, sore throat, difficulty swallowing, dizziness. RESPIRATORY: Denies dyspnea, cough, wheezing, hemoptysis, sputum. CARDIOVASCULAR: Denies chest pain, palpitations, orthopnea, edema, GASTROINTESTINAL: See HPI : Denies dysuria, frequency, incontinence, hematuria, urinary retention. MUSCULOSKELETAL: denies weakness, joint pain, or bony pain SKIN: Denies rash, skin lesions, or other NEUROLOGIC: Denies weakness, headache, numbness, change in speech, confusion, seizures, incoordination. PSYCHIATRIC: No concerning psychosocial issues. 12 point review of systems is negative except for those stated above Patient History <ALINA Gonzalez - Last Filed: 08/08/19 21:17> Medical History GERD (gastroesophageal reflux disease) (Chronic Unknown) H/O tinnitus (Chronic Unknown) Hypertension (Chronic Unknown) Irritable bowel syndrome (Acute Unknown) Liver disease (Acute Unknown) Substance abuse (Chronic Unknown) Social History Smoking Status: Never smoker second hand exposure: No alcohol intake: current (vodka everyday.) substance use type: does not use alcohol intake frequency: 3 or more drinks per day Substance Use Type: marijuana Exam <ALINA Gonzalez - Last Filed: 08/08/19 21:17> Narrative Exam Narrative: GENERAL: Obese male appears uncomfortable HEAD: Atraumatic. Normocephalic. No temporal or scalp tenderness. EYES: Pupils equal round and reactive. Extraocular motions intact. No scleral icterus. No injection or drainage. ENT: Nose without bleeding, purulent drainage or septal hematoma. Throat without erythema, tonsillar hypertrophy or exudate. Uvula midline. Airway patent. NECK: Trachea midline. No JVD or lymphadenopathy. Supple, nontender, no meningeal signs. CARDIOVASCULAR: Tachycardic rate and regular rhythm RESPIRATORY: Clear to auscultation. Breath sounds equal bilaterally. No wheezes, rales, or rhonchi. No cough. No increased respiratory effort. No accessory muscle use. GASTROINTESTINAL: Abdomen soft, non-tender, nondistended. No hepato- splenomegaly, or palpable masses. No guarding. EXTREMITIES: No clubbing, cyanosis, or edema. No joint tenderness, effusion, or edema noted. BACK: Nontender without deformity or crepitance. No flank tenderness. NEURO: AOx3. Significant tremor noted. SKIN: No rash or erythema on visible skin Initial Vital Signs Initial Vital Signs: Vital Signs Temperature 97.7 F 08/08/19 14:40 Pulse Rate 129 H 08/08/19 14:40 Respiratory Rate 21 08/08/19 14:40 Blood Pressure 141/61 H 08/08/19 14:40 Pulse Oximetry 97 08/08/19 14:40 <Fabio Pelayo DO - Last Filed: 08/08/19 22:41> Initial Vital Signs Initial Vital Signs: Vital Signs Temperature 97.7 F 08/08/19 14:40 Pulse Rate 129 H 08/08/19 14:40 Respiratory Rate 21 08/08/19 14:40 Blood Pressure 141/61 H 08/08/19 14:40 Pulse Oximetry 97 08/08/19 14:40 Course <ALINA Gonzalez - Last Filed: 08/08/19 21:17> Orders Ordered: ED Orders 08/08/19 15:30 Complete Blood Count AUTO DIFF Stat Comprehensive Metabolic Panel Stat Ethanol (ETOH) Stat Hepatic (Liver) Panel Stat Lipase Stat Magnesium Stat Partial Thromboplastin Time Stat Phosphorous Stat Prothrombin Time INR Stat 08/08/19 19:00 Urine Drug Screen, Rapid Stat Urine Microscopic Stat Discontinued Medications Sodium Chloride (Normal Saline 0.9%) 1,000 mls @ 1,000 mls/hr IV BOLUS ONE Stop: 08/08/19 16:07 Last Infusion: 08/08/19 16:59 Dose: 0 mls/hr Documented by: Admin: 08/08/19 15:27 Dose: 1,000 mls/hr Documented by: ROSALINDA Thiamine HCl 100 mg/ Dextrose 51 mls @ 204 mls/hr IV NOW ONE Stop: 08/08/19 15:09 Last Infusion: 08/08/19 16:19 Dose: 0 mls/hr Documented by: Admin: 08/08/19 15:47 Dose: 204 mls/hr Documented by: ROSALINDA Potassium Chloride 20 meq/ (Sodium Chloride) 260 mls @ 130 mls/hr IV NOW ONE Stop: 08/08/19 18:10 Last Infusion: 08/08/19 19:45 Dose: 130 mls/hr Documented by: MAHIN Cosigned by: ARNULFO Admin: 08/08/19 16:47 Dose: 130 mls/hr Documented by: ROSALINDA Cosigned by: FITZ Magnesium Sulfate (Magnesium Sulfate) 2 gm in 50 mls @ 25 mls/hr IV NOW ONE Stop: 08/08/19 18:09 Last Infusion: 08/08/19 19:43 Dose: 25 mls/hr Documented by: MAHIN Cosigned by: ARNULFO Admin: 08/08/19 17:11 Dose: 25 mls/hr Documented by: ROSALINDA Cosigned by: BTONER Sodium Chloride (Normal Saline 0.9%) 1,000 mls @ 1,000 mls/hr IV BOLUS ONE Stop: 08/08/19 17:36 Last Infusion: 08/08/19 17:51 Dose: 0 mls/hr Documented by: Admin: 08/08/19 16:46 Dose: 1,000 mls/hr Documented by: ROSALINDA Sodium Chloride (Normal Saline 0.9%) 1,000 mls @ 1,000 mls/hr IV BOLUS PRN PRN Reason: Fluid replacement Last Infusion: 08/08/19 20:32 Dose: 1,000 mls/hr Documented by: Admin: 08/08/19 18:57 Dose: 1,000 mls/hr Documented by: ROSALINDA Lorazepam (Ativan) 2 mg IV NOW ONE Stop: 08/08/19 15:09 Last Admin: 08/08/19 15:27 Dose: 2 mg Documented by: ROSALINDA Lorazepam (Ativan) 2 mg IV NOW ONE Stop: 08/08/19 17:42 Last Admin: 08/08/19 17:58 Dose: 2 mg Documented by: ROSALINDA Ondansetron HCl (Zofran) 4 mg IV NOW ONE Stop: 08/08/19 15:09 Last Admin: 08/08/19 15:27 Dose: 4 mg Documented by: ROSALINDA Ondansetron HCl (Zofran Odt Prepack) 1 bottle MISC SEEINSTR ONE Stop: 08/08/19 20:43 Last Admin: 08/08/19 20:47 Dose: 1 bottle Documented by: MAHIN Potassium Chloride (Potassium Chloride) 40 meq PO NOW ONE Stop: 08/08/19 19:55 Last Admin: 08/08/19 20:02 Dose: 40 meq Documented by: MMCFARL Vital Signs Vital signs: Vital Signs - 8 hr 08/08/19 15:36 08/08/19 15:52 08/08/19 15:56 Temperature 98.7 F Pulse Rate 130 H 130 H Respiratory Rate 21 17 Blood Pressure Blood Pressure [Right Arm] 126/57 L 146/51 H Pulse Oximetry 98 98 08/08/19 16:56 08/08/19 18:31 08/08/19 18:45 Temperature Pulse Rate 127 H 126 H 129 H Respiratory Rate 21 29 H 17 Blood Pressure Blood Pressure [Right Arm] 140/54 L 120/61 120/61 Pulse Oximetry 98 96 97 08/08/19 19:00 08/08/19 19:35 08/08/19 20:08 Temperature Pulse Rate 110 H 115 H 121 H Respiratory Rate 16 26 H 26 H Blood Pressure Blood Pressure [Right Arm] 142/55 H 145/53 H 145/83 H Pulse Oximetry 97 99 97 08/08/19 21:00 Temperature Pulse Rate 109 H Respiratory Rate 18 Blood Pressure 147/60 H Blood Pressure [Right Arm] Pulse Oximetry 97 <Fabio Pelayo, - Last Filed: 08/08/19 22:41> Orders Ordered: ED Orders 08/08/19 15:30 Complete Blood Count AUTO DIFF Stat Comprehensive Metabolic Panel Stat Ethanol (ETOH) Stat Hepatic (Liver) Panel Stat Lipase Stat Magnesium Stat Partial Thromboplastin Time Stat Phosphorous Stat Prothrombin Time INR Stat 08/08/19 19:00 Urine Drug Screen, Rapid Stat Urine Microscopic Stat Discontinued Medications Sodium Chloride (Normal Saline 0.9%) 1,000 mls @ 1,000 mls/hr IV BOLUS ONE Stop: 08/08/19 16:07 Last Infusion: 08/08/19 16:59 Dose: 0 mls/hr Documented by: BLACKSENWallace Admin: 08/08/19 15:27 Dose: 1,000 mls/hr Documented by: ROSALINDA Thiamine HCl 100 mg/ Dextrose 51 mls @ 204 mls/hr IV NOW ONE Stop: 08/08/19 15:09 Last Infusion: 08/08/19 16:19 Dose: 0 mls/hr Documented by: BLACKSENWallace Admin: 08/08/19 15:47 Dose: 204 mls/hr Documented by: ROSALINDA Potassium Chloride 20 meq/ (Sodium Chloride) 260 mls @ 130 mls/hr IV NOW ONE Stop: 08/08/19 18:10 Last Infusion: 08/08/19 19:45 Dose: 130 mls/hr Documented by: MAHIN Cosigned by: ARNULFO Admin: 08/08/19 16:47 Dose: 130 mls/hr Documented by: ROSALINDA Cosigned by: FITZ Magnesium Sulfate (Magnesium Sulfate) 2 gm in 50 mls @ 25 mls/hr IV NOW ONE Stop: 08/08/19 18:09 Last Infusion: 08/08/19 19:43 Dose: 25 mls/hr Documented by: MAHIN Cosigned by: ARNULFO Admin: 08/08/19 17:11 Dose: 25 mls/hr Documented by: ROSALINDA Cosigned by: BTONER Sodium Chloride (Normal Saline 0.9%) 1,000 mls @ 1,000 mls/hr IV BOLUS ONE Stop: 08/08/19 17:36 Last Infusion: 08/08/19 17:51 Dose: 0 mls/hr Documented by: Admin: 08/08/19 16:46 Dose: 1,000 mls/hr Documented by: ROSALINDA Sodium Chloride (Normal Saline 0.9%) 1,000 mls @ 1,000 mls/hr IV BOLUS PRN PRN Reason: Fluid replacement Last Infusion: 08/08/19 20:32 Dose: 1,000 mls/hr Documented by: Admin: 08/08/19 18:57 Dose: 1,000 mls/hr Documented by: ROSALINDA Lorazepam (Ativan) 2 mg IV NOW ONE Stop: 08/08/19 15:09 Last Admin: 08/08/19 15:27 Dose: 2 mg Documented by: ROSALINDA Lorazepam (Ativan) 2 mg IV NOW ONE Stop: 08/08/19 17:42 Last Admin: 08/08/19 17:58 Dose: 2 mg Documented by: ROSALINDA Ondansetron HCl (Zofran) 4 mg IV NOW ONE Stop: 08/08/19 15:09 Last Admin: 08/08/19 15:27 Dose: 4 mg Documented by: ROSALINDA Ondansetron HCl (Zofran Odt Prepack) 1 bottle MISC SEEINSTR ONE Stop: 08/08/19 20:43 Last Admin: 08/08/19 20:47 Dose: 1 bottle Documented by: MAHIN Potassium Chloride (Potassium Chloride) 40 meq PO NOW ONE Stop: 08/08/19 19:55 Last Admin: 08/08/19 20:02 Dose: 40 meq Documented by: MAHIN Vital Signs Vital signs: Vital Signs - 8 hr 08/08/19 15:36 08/08/19 15:52 08/08/19 15:56 Temperature 98.7 F Pulse Rate 130 H 130 H Respiratory Rate 21 17 Blood Pressure Blood Pressure [Right Arm] 126/57 L 146/51 H Pulse Oximetry 98 98 08/08/19 16:56 08/08/19 18:31 08/08/19 18:45 Temperature Pulse Rate 127 H 126 H 129 H Respiratory Rate 21 29 H 17 Blood Pressure Blood Pressure [Right Arm] 140/54 L 120/61 120/61 Pulse Oximetry 98 96 97 08/08/19 19:00 08/08/19 19:35 08/08/19 20:08 Temperature Pulse Rate 110 H 115 H 121 H Respiratory Rate 16 26 H 26 H Blood Pressure Blood Pressure [Right Arm] 142/55 H 145/53 H 145/83 H Pulse Oximetry 97 99 97 08/08/19 21:00 Temperature Pulse Rate 109 H Respiratory Rate 18 Blood Pressure 147/60 H Blood Pressure [Right Arm] Pulse Oximetry 97 MDM - Alcohol <ALINA Gonzalez - Last Filed: 08/08/19 21:17> Lab Data Result diagrams: 08/08/19 15:30 08/08/19 15:30 Labs: Lab Results 08/08/19 08/08/19 08/08/19 Range/Units 15:30 15:30 15:30 WBC 11.6 H (4.5-11.0) X10^3/uL RBC 4.39 L (4.5-5.9) X10^6/uL Hgb 14.2 (13.5-17.5) g/dL Hct 41.3 (41-53) % MCV 94.2 (80-100) fL MCH 32.3 (26-34) PG MCHC 34.3 (30-36) % RDW 14.0 (11.6-14.8) % Plt Count 236 (150-400) X10^3/uL Neut % (Auto) 81.7 H (50-75) % Lymph % (Auto) 9.3 L (25-40) % Anderson % (Auto) 8.1 (3-14) % Eos % (Auto) 0.1 L (2-4) % Baso % (Auto) 0.8 (0-2) % Neut # (Auto) 9500 H (3833-3831) /uL Lymph # (Auto) 1100 (5682-8141) /uL Anderson # (Auto) 900 (0-900) /uL Eos # (Auto) 0 (0-450) /uL Baso # (Auto) 100 (0-100) /uL PT 15.3 H (10.1-12.7) SECONDS INR 1.3 (0.9-1.3) APTT 35 D (26.4-36.2) SECONDS Sodium 133 L (137-145) mmol/L Potassium 2.9 L (3.4-5.1) mmol/L Chloride 90 L (98-107) mmol/L Carbon Dioxide 25 (22-32) mmol/L BUN 5 L (9-20) mg/dL Creatinine 1.00 (0.66-1.25) mg/dL Estimated GFR > 60.0 (>60) mL/min BUN/Creatinine Ratio 5.0 L (6-22) Glucose 136 H (70-100) mg/dL Calcium 9.5 (8.4-10.2) mg/dL Phosphorus 2.9 (2.5-4.5) mg/dL Magnesium 1.2 L (1.6-2.3) mg/dL Total Bilirubin 3.9 H (0.2-1.3) mg/dL Conjugated Bilirubin 0.1 (0.0-0.3) md/dL Unconjugated Bilirubin 2.3 H (0.0-1.1) mg/dL AST 219 H (17-59) IU/L ALT 61 H (<50) IU/L Alkaline Phosphatase 122 (38-126) U/L Total Protein 9.5 H (6.3-8.2) g/dL Albumin 4.8 (3.5-5.0) g/dL Globulin 4.7 H (1.7-4.1) g/dL Albumin/Globulin Ratio 1.0 (1.0-2.8) Lipase 114 (23-300) U/L Urine RBC (0-5/HPF) Urine WBC (0-5/HPF) Amorphous Sediment Urine Bacteria (None) Ur Culture Indicated? U Morph 300 ng/mL cutoff (Negative) Ur Oxycodone Screen (Negative) Urine Methadone Screen (Negative) Ur Barbiturates Screen (Negative) U Tricyclic Antidepress (Negative) Ur Phencyclidine Scrn (Negative) Ur Amphetamines Screen (Negative) U Methamphetamines Scrn (Negative) Ur MDMA Scrn (Ecstasy) (Negative) U Benzodiazepines Scrn (Negative) Urine Cocaine Screen (Negative) U Marijuana (THC) Screen (Negative) Ethyl Alcohol 14 H ( - 10) mg/dL 08/08/19 08/08/19 Range/Units 19:00 19:00 WBC (4.5-11.0) X10^3/uL RBC (4.5-5.9) X10^6/uL Hgb (13.5-17.5) g/dL Hct (41-53) % MCV (80-100) fL MCH (26-34) PG MCHC (30-36) % RDW (11.6-14.8) % Plt Count (150-400) X10^3/uL Neut % (Auto) (50-75) % Lymph % (Auto) (25-40) % Anderson % (Auto) (3-14) % Eos % (Auto) (2-4) % Baso % (Auto) (0-2) % Neut # (Auto) (0322-4621) /uL Lymph # (Auto) (7880-2205) /uL Anderson # (Auto) (0-900) /uL Eos # (Auto) (0-450) /uL Baso # (Auto) (0-100) /uL PT (10.1-12.7) SECONDS INR (0.9-1.3) APTT (26.4-36.2) SECONDS Sodium (137-145) mmol/L Potassium (3.4-5.1) mmol/L Chloride (98-107) mmol/L Carbon Dioxide (22-32) mmol/L BUN (9-20) mg/dL Creatinine (0.66-1.25) mg/dL Estimated GFR (>60) mL/min BUN/Creatinine Ratio (6-22) Glucose (70-100) mg/dL Calcium (8.4-10.2) mg/dL Phosphorus (2.5-4.5) mg/dL Magnesium (1.6-2.3) mg/dL Total Bilirubin (0.2-1.3) mg/dL Conjugated Bilirubin (0.0-0.3) md/dL Unconjugated Bilirubin (0.0-1.1) mg/dL AST (17-59) IU/L ALT (<50) IU/L Alkaline Phosphatase (38-126) U/L Total Protein (6.3-8.2) g/dL Albumin (3.5-5.0) g/dL Globulin (1.7-4.1) g/dL Albumin/Globulin Ratio (1.0-2.8) Lipase (23-300) U/L Urine RBC None seen (0-5/HPF) Urine WBC None seen (0-5/HPF) Amorphous Sediment 1+ Urine Bacteria None seen (None) Ur Culture Indicated? Cult not indicated U Morph 300 ng/mL cutoff Negative (Negative) Ur Oxycodone Screen Negative (Negative) Urine Methadone Screen Negative (Negative) Ur Barbiturates Screen Negative (Negative) U Tricyclic Antidepress Negative (Negative) Ur Phencyclidine Scrn Negative (Negative) Ur Amphetamines Screen Negative (Negative) U Methamphetamines Scrn Negative (Negative) Ur MDMA Scrn (Ecstasy) Negative (Negative) U Benzodiazepines Scrn Negative (Negative) Urine Cocaine Screen Negative (Negative) U Marijuana (THC) Screen Negative (Negative) Ethyl Alcohol ( - 10) mg/dL Urine Dip Bedside Urine Glucose Negative Bedside Urine Bilirubin - Negative Bedside Urine Ketone + 15 Urine Specific [place] 1.015 Bedside Urine Occult Blood - Negative Bedside Urine pH 7.5 Bedside Urine Protein ++ 100 Bedside Urine Urobilinogen +/- 1mg Bedside Urine Nitrite - Negative Bedside Urine Leukocytes - Negative Esterase MDM Narrative Medical decision making narrative: The patient is a 34-year-old male who presents with a chief complaint of alcohol detox. He has not had a drink in 2 days, normally drinks anywhere from 10 shots to 1 L of vodka per day. The patient was given IV Ativan given his detox symptoms of tremor, tachycardia etc. Labs were drawn and they were basically within normal limits for the patient, though he is noted to be hypokalemic so his potassium was replaced. His magnesium was also slightly low, so that was replaced as well in the emergency department. The patient denies any thoughts of hurting himself or anybody else. However the patient adamantly declines any inpatient treatment or further evaluation. He states that he came to the emergency department to ?feel better and that he feels better enough to go home.I repeatedly offered further evaluation, social work, inpatient detox etc. The patient adamantly declines any of this, stating that he wants to get home. I did discharge him with strict instructions for return precautions, instructed him that I believe that he needs further help, and did give him a prescription of Zofran. Patient has no questions or concerns upon discharge and states understanding of return precautions as well as follow-up care. The patient remained tachycardic throughout most of his emergency department stay, but his heart rate did decrease from the 130s to 109 prior to discharge. The patient has no questions or concerns upon discharge and states understanding of return precautions as well as follow-up care, and again adamantly declines any further workup or need for assistance. <Fabio Pelayo, DO - Last Filed: 08/08/19 22:41> Lab Data Labs: Lab Results 08/08/19 08/08/19 08/08/19 Range/Units 15:30 15:30 15:30 WBC 11.6 H (4.5-11.0) X10^3/uL RBC 4.39 L (4.5-5.9) X10^6/uL Hgb 14.2 (13.5-17.5) g/dL Hct 41.3 (41-53) % MCV 94.2 (80-100) fL MCH 32.3 (26-34) PG MCHC 34.3 (30-36) % RDW 14.0 (11.6-14.8) % Plt Count 236 (150-400) X10^3/uL Neut % (Auto) 81.7 H (50-75) % Lymph % (Auto) 9.3 L (25-40) % Anderson % (Auto) 8.1 (3-14) % Eos % (Auto) 0.1 L (2-4) % Baso % (Auto) 0.8 (0-2) % Neut # (Auto) 9500 H (2576-5475) /uL Lymph # (Auto) 1100 (3522-8699) /uL Anderson # (Auto) 900 (0-900) /uL Eos # (Auto) 0 (0-450) /uL Baso # (Auto) 100 (0-100) /uL PT 15.3 H (10.1-12.7) SECONDS INR 1.3 (0.9-1.3) APTT 35 D (26.4-36.2) SECONDS Sodium 133 L (137-145) mmol/L Potassium 2.9 L (3.4-5.1) mmol/L Chloride 90 L (98-107) mmol/L Carbon Dioxide 25 (22-32) mmol/L BUN 5 L (9-20) mg/dL Creatinine 1.00 (0.66-1.25) mg/dL Estimated GFR > 60.0 (>60) mL/min BUN/Creatinine Ratio 5.0 L (6-22) Glucose 136 H (70-100) mg/dL Calcium 9.5 (8.4-10.2) mg/dL Phosphorus 2.9 (2.5-4.5) mg/dL Magnesium 1.2 L (1.6-2.3) mg/dL Total Bilirubin 3.9 H (0.2-1.3) mg/dL Conjugated Bilirubin 0.1 (0.0-0.3) md/dL Unconjugated Bilirubin 2.3 H (0.0-1.1) mg/dL AST 219 H (17-59) IU/L ALT 61 H (<50) IU/L Alkaline Phosphatase 122 (38-126) U/L Total Protein 9.5 H (6.3-8.2) g/dL Albumin 4.8 (3.5-5.0) g/dL Globulin 4.7 H (1.7-4.1) g/dL Albumin/Globulin Ratio 1.0 (1.0-2.8) Lipase 114 (23-300) U/L Urine RBC (0-5/HPF) Urine WBC (0-5/HPF) Amorphous Sediment Urine Bacteria (None) Ur Culture Indicated? U Morph 300 ng/mL cutoff (Negative) Ur Oxycodone Screen (Negative) Urine Methadone Screen (Negative) Ur Barbiturates Screen (Negative) U Tricyclic Antidepress (Negative) Ur Phencyclidine Scrn (Negative) Ur Amphetamines Screen (Negative) U Methamphetamines Scrn (Negative) Ur MDMA Scrn (Ecstasy) (Negative) U Benzodiazepines Scrn (Negative) Urine Cocaine Screen (Negative) U Marijuana (THC) Screen (Negative) Ethyl Alcohol 14 H ( - 10) mg/dL 08/08/19 08/08/19 Range/Units 19:00 19:00 WBC (4.5-11.0) X10^3/uL RBC (4.5-5.9) X10^6/uL Hgb (13.5-17.5) g/dL Hct (41-53) % MCV (80-100) fL MCH (26-34) PG MCHC (30-36) % RDW (11.6-14.8) % Plt Count (150-400) X10^3/uL Neut % (Auto) (50-75) % Lymph % (Auto) (25-40) % Anderson % (Auto) (3-14) % Eos % (Auto) (2-4) % Baso % (Auto) (0-2) % Neut # (Auto) (9050-0264) /uL Lymph # (Auto) (6098-9123) /uL Anderson # (Auto) (0-900) /uL Eos # (Auto) (0-450) /uL Baso # (Auto) (0-100) /uL PT (10.1-12.7) SECONDS INR (0.9-1.3) APTT (26.4-36.2) SECONDS Sodium (137-145) mmol/L Potassium (3.4-5.1) mmol/L Chloride (98-107) mmol/L Carbon Dioxide (22-32) mmol/L BUN (9-20) mg/dL Creatinine (0.66-1.25) mg/dL Estimated GFR (>60) mL/min BUN/Creatinine Ratio (6-22) Glucose (70-100) mg/dL Calcium (8.4-10.2) mg/dL Phosphorus (2.5-4.5) mg/dL Magnesium (1.6-2.3) mg/dL Total Bilirubin (0.2-1.3) mg/dL Conjugated Bilirubin (0.0-0.3) md/dL Unconjugated Bilirubin (0.0-1.1) mg/dL AST (17-59) IU/L ALT (<50) IU/L Alkaline Phosphatase (38-126) U/L Total Protein (6.3-8.2) g/dL Albumin (3.5-5.0) g/dL Globulin (1.7-4.1) g/dL Albumin/Globulin Ratio (1.0-2.8) Lipase (23-300) U/L Urine RBC None seen (0-5/HPF) Urine WBC None seen (0-5/HPF) Amorphous Sediment 1+ Urine Bacteria None seen (None) Ur Culture Indicated? Cult not indicated U Morph 300 ng/mL cutoff Negative (Negative) Ur Oxycodone Screen Negative (Negative) Urine Methadone Screen Negative (Negative) Ur Barbiturates Screen Negative (Negative) U Tricyclic Antidepress Negative (Negative) Ur Phencyclidine Scrn Negative (Negative) Ur Amphetamines Screen Negative (Negative) U Methamphetamines Scrn Negative (Negative) Ur MDMA Scrn (Ecstasy) Negative (Negative) U Benzodiazepines Scrn Negative (Negative) Urine Cocaine Screen Negative (Negative) U Marijuana (THC) Screen Negative (Negative) Ethyl Alcohol ( - 10) mg/dL Urine Dip Bedside Urine Glucose Negative Bedside Urine Bilirubin - Negative Bedside Urine Ketone + 15 Urine Specific [place] 1.015 Bedside Urine Occult Blood - Negative Bedside Urine pH 7.5 Bedside Urine Protein ++ 100 Bedside Urine Urobilinogen +/- 1mg Bedside Urine Nitrite - Negative Bedside Urine Leukocytes - Negative Esterase Discharge Plan Departure Patient Disposition: Home Clinical Impression: Alcohol withdrawal syndrome Qualifiers: Complication of substance-induced condition: uncomplicated Qualified Code(s): F10.230 - Alcohol dependence with withdrawal, uncomplicated Discharge Date/Time: 08/08/19 21:00 Instructions: DI for Delirium Tremens, DI for Alcohol Abuse, DI for Drug Abuse and Drug Addiction, DI for Alcohol Poisoning, DI for Alcoholic Gastritis Activity Restrictions/Additional Instructions: I sent a prescription of Zofran to [facility] in [facility]. Please follow up with primary care provider soon as possible. Please come back to the emergency department for any acute concerns such as inability keep down fluids. As I discussed, we have offered to help many times today. Please come back to the emergency department or follow up with primary care provider if you change her mind regarding getting treatment for your alcohol abuse. I suggest that you follow-up with primary care provider as soon as possible. Prescriptions: New ondansetron 4 mg tablet,disintegrating 4 mg PO Q6H PRN (Reason: nausea and vomiting) Qty: 20 RF: 0 No Action vitamin B complex tablet 1 tab PO DAILY RF: 0 lisinopril-hydrochlorothiazide 20-12.5 mg tablet 1 tab PO DAILY Qty: 90 RF: 1 omeprazole 20 mg capsule,delayed release(DR/EC) 20 mg PO DAILY RF: 0 Referrals: Tracee Knott PA-C [Primary Care Provider] - <Fabio Pelayo DO - Last Filed: 08/08/19 22:41> Sign Out Provider Sign Out Attestation: Dr Pelayo Co-Sign Statement: I was available for consultation during this patient's emergency department visit. This chart is signed by myself for administrative purposes only. I did not have direct contact with this patient during this visit. They were seen independently by the APC.
[2019-08-08] MEDS: SODIUM CHLORIDE 0.9% 1,000 ML 1000 ML IV ×3 (15:27→18:57)
[2019-08-08] MEDS: LORazepam 2 MG/ML INJ IV ×2 (15:27→17:58)
[2019-08-08] MEDS: ONDANSETRON 4 MG/2 ML INJ IV (15:27)
[2019-08-08 15:42] LABS: Add Manual Diff / Slide Review NO; Basophils Absolute Auto 100 /uL (0-100); Basophils Percent Auto 0.8 % (0-2); Eosinophils Absolute Auto 0 /uL (0-450); Eosinophils Percent Auto 0.1 % (2-4); Hematocrit 41.3 % (41-53); Hemoglobin 14.2 g/dL (13.5-17.5); Lymphocytes Absolute Auto 1100 /uL (1100-4500); Lymphocytes Percent Auto 9.3 % (25-40); Mean Corpuscular HGB Conc 34.3 % (30-36); Mean Corpuscular Hemoglobin 32.3 PG (26-34); Mean Corpuscular Volume 94.2 fL (80-100); Monocytes Absolute Auto 900 /uL (0-900); Monocytes Percent Auto 8.1 % (3-14); Neutrophils Absolute Auto 9500 /uL (1500-7000); Neutrophils Percent Auto 81.7 % (50-75); Platelet Count 236 X10^3/uL (150-400); Red Blood Cell Count 4.39 X10^6/uL (4.5-5.9); White Blood Cell Count 11.6 X10^3/uL (4.5-11.0)
[2019-08-08] MEDS: THIAMINE 100 MG in DEXTROSE 5 % IN WATER 50 ML 204 ML IV (15:47)
[2019-08-08 15:50] LABS: INR 1.3 (0.9-1.3); Prothrombin Time 15.3 SECONDS (10.1-12.7)
[2019-08-08 15:53] LABS: PTT Partial Thromboplastin Tim 35 SECONDS (26.4-36.2)
--- NOTE | 2019-08-08 15:56 | PC.NURSE ---
calmer, trying to sleep.
[2019-08-08 16:00] LABS: Alanine Aminotransferase 61 IU/L (<50); Albumin 4.8 g/dL (3.5-5.0); Alkaline Phosphatase 122 U/L (38-126); Aspartate Aminotransferase 219 IU/L (17-59); Bilirubin Conjugated 0.1 md/dL (0.0-0.3); Bilirubin Total 3.9 mg/dL (0.2-1.3); Bilirubin Unconjugated 2.3 mg/dL (0.0-1.1); Blood Urea Nitrogen 5 mg/dL (9-20); Calcium 9.5 mg/dL (8.4-10.2); Carbon Dioxide 25 mmol/L (22-32); Chloride 90 mmol/L (98-107); Estimated Glomerular Filt Rate > 60.0 mL/min (>60); Ethanol (ETOH) 14 mg/dL; Globulin 4.7 g/dL (1.7-4.1); Glucose 136 mg/dL (70-100); HEMOLYSIS < 15 (0-50); Lipase 114 U/L (23-300); Magnesium 1.2 mg/dL (1.6-2.3); Phosphorous 2.9 mg/dL (2.5-4.5); Potassium 2.9 mmol/L (3.4-5.1); Sodium 133 mmol/L (137-145); Total Protein 9.5 g/dL (6.3-8.2)
[2019-08-08] MEDS: POTASSIUM CHLORIDE 20 MEQ in SODIUM CHLORIDE 0.9% 250 ML 130 ML IV (16:47)
[2019-08-08] MEDS: MAGNESIUM SULFATE 2 GM/50 ML PIGGYBACK IV (17:11)
[2019-08-08 19:17] LABS: UR Morphine/Opiate cutoff 300 Negative (Negative); Ur Creatinine Normal (Normal); Ur Specific Gravity Normal (Normal); Urine Amphetamines Negative (Negative); Urine Barbiturates Negative (Negative); Urine Benzodiazepines Negative (Negative); Urine Cocaine Negative (Negative); Urine MDMA Negative (Negative); Urine Methadone Negative (Negative); Urine Methamphetamines Negative (Negative); Urine Oxycodone Negative (Negative); Urine Phencyclidine Negative (Negative); Urine Tetrahydrocannabinol Negative (Negative); Urine Tricyclic Antidepressant Negative (Negative); Urine pH Normal (Normal)
[2019-08-08 19:24] LABS: Bacteria Urine None Seen; RBC Urine None Seen (0-5/HPF); WBC Urine None Seen (0-5/HPF)
[2019-08-08 19:39] LABS: Amorphous Sediment Urine 1+; Culture Indicated Urine Cult Not Indicated
[2019-08-08] MEDS: POTASSIUM CHLORIDE 20 MEQ/15 ML UDC 40 MEQ PO (20:02)
[2019-08-08] MEDS: ONDANSETRON 4 MG ODT PREPACK 1 BOTTLE MISC (20:47)
== END 2019-08-08 21:00 | disposition home or self-care (01) ==
PROVIDERS: Emergency Provider Nurse Practitioner Family; Family Provider Physician Assistant; PCP Physician Assistant
DX: F10.230 Alcohol dependence with withdrawal, uncomplicated (principal)
CPT/HCPCS: 36415; 80053; 80076; 80305; 80320; 81003; 81015; 83690; 83735; 84100; 85025; 85610; 85730; 93005; 93010; 96361; 96365; 96375; 99284; 99285; J2060; J2405; J3480

== ENCOUNTER 2019-08-25 08:24 | Emergency (ER) | payer OTHER, SELFPAY ==
[2019-08-25] VITALS (7 sets, daily range): BP systolic 124–142; BP diastolic 60–74; PULSE 99–118; RESP 14–28; TEMP 36.9–37.6; O2SAT 94–99; BMI 37.8
[2019-08-25] MEDS: SODIUM CHLORIDE 0.9% 1,000 ML 1000 ML IV (08:46)
--- NOTE | 2019-08-25 08:49 | ED.ALCOHOL ---
HPI - Alcohol General Chief Complaint: Toxicology Problem Stated Complaint: alcohol withdrawl/here for detox Time Seen by Provider: 08/25/19 08:47 Source: patient Mode of arrival: Family Vehicle Limitations: no limitations History of Present Illness HPI narrative: Patient is a 34-year-old male no known alcoholic presenting with shaking and wanting detox. He drinks at least half a gal of vodka daily he drink yesterday woke up this morning started shaking as he says he actually did not sleep very well and is extremely tired today. He took a shot this morning. He did throw up 1 time today but no other time and now is no longer nauseous. He does have a history of cirrhosis denies any abdominal pain. He complains of being tired closes eyes the continues to talk in be easily arousable MD complaint: desires rehab Last drink: just prior to this admission Chronic alcohol use: Yes Previous visits for alcohol intoxication: Yes Recent trauma: No Associated symptoms: tremors Related Data Home Medications Medication Instructions Recorded Confirmed vitamin B complex 1 tab PO DAILY 11/02/18 08/08/19 omeprazole 20 mg PO DAILY 08/08/19 08/08/19 Previous Rx's Medication Instructions Recorded lisinopril 20 1 tab PO DAILY #90 tab 11/02/18 mg-hydrochlorothiazide 12.5 mg tablet ondansetron 4 mg PO Q6H PRN #20 tab 08/08/19 lorazepam [Ativan] 1 mg PO TID #15 tab 08/25/19 Allergies Allergy/AdvReac Type Severity Reaction Status Date / Time Iodine and Iodide Containing Allergy Intermediate Hives Verified 08/25/19 08:34 Produc Review of Systems Review of Systems Narrative: GENERAL: Denies chills, fatigue, malaise, fever, sweats, travel HEENT: Denies sinus pain, ear pain, sore throat, difficulty swallowing, neck pain RESPIRATORY: Denies dyspnea, cough, wheezing, hemoptysis, sputum. CARDIOVASCULAR: Denies chest pain, palpitations, orthopnea, edema GASTROINTESTINAL: Denies nausea, vomiting, abdominal pain, diarrhea, constipation, melena. : Denies dysuria, frequency, incontinence, hematuria, urinary retention, flank pain. MUSCULOSKELETAL: Denies weakness, joint pain, or bony pain SKIN: No rash, no erythema, no pruritus NEUROLOGIC: Tremors see HPI PSYCHIATRIC: Alcohol dependence and withdrawal see HPI 12 point review of systems is negative except for those stated above and HPI Patient History Medical History GERD (gastroesophageal reflux disease) (Chronic Unknown) H/O tinnitus (Chronic Unknown) Hypertension (Chronic Unknown) Irritable bowel syndrome (Acute Unknown) Liver disease (Acute Unknown) Substance abuse (Chronic Unknown) Social History Smoking Status: Never smoker second hand exposure: No alcohol intake: current (vodka everyday.) substance use type: does not use alcohol intake frequency: 3 or more drinks per day Alcohol type: hard liquor Substance Use Type: marijuana Exam Initial Vital Signs Initial Vital Signs: Vital Signs Temperature 98.4 F 08/25/19 08:30 Pulse Rate 118 H 08/25/19 08:30 Respiratory Rate 28 H 08/25/19 08:30 Blood Pressure 132/66 08/25/19 08:30 Pulse Oximetry 95 08/25/19 08:30 GENERAL: Overweight male alert and oriented, no diaphoresis HEENT: Head atraumatic,EOMI, pupils reactive, face symmetric, CARDIOVASCULAR: Regular rate and rhythm without murmurs, rubs or gallops. RESPIRATORY: Breath sounds equal bilaterally, no wheezes rales or rhonchi. ABDOMEN: Soft, nontender. Normoactive bowel sounds all 4 quadrants. No guarding or rebound. EXTREMITIES: Normal range of motion, no clubbing or edema. Neurovascularly intact NEUROLOGICAL: Alert and oriented x3, intention tremor only not at rest SKIN: Warm, dry, no laceration, no petechiae, no rashes or lesions. Course Orders Ordered: ED Orders 08/25/19 08:43 EKG-12 Lead Stat 08/25/19 08:44 Complete Blood Count AUTO DIFF Stat Comprehensive Metabolic Panel Stat Ethanol (ETOH) Stat Lipase Stat Partial Thromboplastin Time Stat Prothrombin Time INR Stat 08/25/19 09:44 CT head/brain wo con Stat 08/25/19 11:30 Urine Culture Stat Urine Drug Screen, Rapid Stat Urine Microscopic Stat Discontinued Medications Sodium Chloride (Normal Saline 0.9%) 1,000 mls @ 1,000 mls/hr IV BOLUS ONE Stop: 08/25/19 09:44 Last Infusion: 08/25/19 09:59 Dose: 0 mls/hr Documented by: Admin: 08/25/19 08:46 Dose: 1,000 mls/hr Documented by: DIYA Thiamine HCl 100 mg/ Dextrose 51 mls @ 204 mls/hr IV NOW ONE Stop: 08/25/19 08:56 Last Infusion: 08/25/19 15:11 Dose: 0 mls/hr Documented by: Admin: 08/25/19 10:08 Dose: 204 mls/hr Documented by: REGINA Phenobarbital (Phenobarbital) 260 mg IV NOW ONE Stop: 08/25/19 08:56 Phenobarbital (Phenobarbital) 130 mg IV NOW ONE Stop: 08/25/19 08:58 Last Admin: 08/25/19 09:06 Dose: 130 mg Documented by: REGINA Reevaluation(s) Reevaluation #1: After phenobarb patient's tremors have much improved. He continues to be extremely tired he is able to talk and respond no trauma he denies headache. However due to extreme tiredness will CT his head. He has no vomiting or nausea Time: 10:00 Vital Signs Vital signs: Vital Signs - 8 hr 08/25/19 09:00 08/25/19 11:35 08/25/19 12:57 Temperature Pulse Rate 110 H 109 H 113 H Respiratory Rate 17 15 20 Blood Pressure Blood Pressure [Left Wrist] 142/62 H 124/60 141/74 H Pulse Oximetry 94 96 97 08/25/19 13:00 08/25/19 14:30 08/25/19 15:12 Temperature 99.7 F H Pulse Rate 108 H 99 H 108 H Respiratory Rate 14 18 20 Blood Pressure 133/61 Blood Pressure [Left Wrist] 130/72 136/61 Pulse Oximetry 99 99 99 MDM - Alcohol Lab Data Attestation: I reviewed the patient's lab results. Result diagrams: 08/25/19 08:44 08/25/19 08:44 Labs: Lab Results 08/25/19 08/25/19 08/25/19 Range/Units 08:44 08:44 08:44 WBC 8.3 (4.5-11.0) X10^3/uL RBC 4.22 L (4.5-5.9) X10^6/uL Hgb 13.9 (13.5-17.5) g/dL Hct 39.6 L (41-53) % MCV 93.8 (80-100) fL MCH 32.9 (26-34) PG MCHC 35.1 (30-36) % RDW 14.6 (11.6-14.8) % Plt Count 215 (150-400) X10^3/uL Neut % (Auto) 70.4 (50-75) % Lymph % (Auto) 22.8 L (25-40) % [place] % (Auto) 5.0 (3-14) % Eos % (Auto) 0.7 L (2-4) % Baso % (Auto) 1.1 (0-2) % Neut # (Auto) 5900 (7781-3248) /uL Lymph # (Auto) 1900 (2969-0400) /uL [place] # (Auto) 400 (0-900) /uL Eos # (Auto) 100 (0-450) /uL Baso # (Auto) 100 (0-100) /uL PT 16.3 H (10.1-12.7) SECONDS INR 1.4 H (0.9-1.3) APTT 38 H D (26.4-36.2) SECONDS Sodium 134 L (137-145) mmol/L Potassium 3.2 L (3.4-5.1) mmol/L Chloride 95 L (98-107) mmol/L Carbon Dioxide 24 (22-32) mmol/L BUN 6 L (9-20) mg/dL Creatinine 0.60 L (0.66-1.25) mg/dL Estimated GFR > 60.0 (>60) mL/min BUN/Creatinine Ratio 10.0 (6-22) Glucose 141 H (70-100) mg/dL Calcium 8.6 (8.4-10.2) mg/dL Total Bilirubin 2.6 H (0.2-1.3) mg/dL AST 215 H (17-59) IU/L ALT 56 H (<50) IU/L Alkaline Phosphatase 126 (38-126) U/L Total Protein 8.9 H (6.3-8.2) g/dL Albumin 4.4 (3.5-5.0) g/dL Globulin 4.5 H (1.7-4.1) g/dL Albumin/Globulin Ratio 1.0 (1.0-2.8) Lipase 444 H (23-300) U/L Urine RBC (0-5/HPF) Urine WBC (0-5/HPF) Ur Squamous Epith Cells (0-5/HPF) Urine Bacteria (None) Urine Mucus (Negative) Ur Culture Indicated? U Morph 300 ng/mL cutoff (Negative) Ur Oxycodone Screen (Negative) Urine Methadone Screen (Negative) Ur Barbiturates Screen (Negative) U Tricyclic Antidepress (Negative) Ur Phencyclidine Scrn (Negative) Ur Amphetamines Screen (Negative) U Methamphetamines Scrn (Negative) Ur MDMA Scrn (Ecstasy) (Negative) U Benzodiazepines Scrn (Negative) Urine Cocaine Screen (Negative) U Marijuana (THC) Screen (Negative) Ethyl Alcohol ( - 10) mg/dL 08/25/19 08/25/19 08/25/19 Range/Units 08:44 11:30 11:30 WBC (4.5-11.0) X10^3/uL RBC (4.5-5.9) X10^6/uL Hgb (13.5-17.5) g/dL Hct (41-53) % MCV (80-100) fL MCH (26-34) PG MCHC (30-36) % RDW (11.6-14.8) % Plt Count (150-400) X10^3/uL Neut % (Auto) (50-75) % Lymph % (Auto) (25-40) % [place] % (Auto) (3-14) % Eos % (Auto) (2-4) % Baso % (Auto) (0-2) % Neut # (Auto) (5931-8633) /uL Lymph # (Auto) (5270-8453) /uL [place] # (Auto) (0-900) /uL Eos # (Auto) (0-450) /uL Baso # (Auto) (0-100) /uL PT (10.1-12.7) SECONDS INR (0.9-1.3) APTT (26.4-36.2) SECONDS Sodium (137-145) mmol/L Potassium (3.4-5.1) mmol/L Chloride (98-107) mmol/L Carbon Dioxide (22-32) mmol/L BUN (9-20) mg/dL Creatinine (0.66-1.25) mg/dL Estimated GFR (>60) mL/min BUN/Creatinine Ratio (6-22) Glucose (70-100) mg/dL Calcium (8.4-10.2) mg/dL Total Bilirubin (0.2-1.3) mg/dL AST (17-59) IU/L ALT (<50) IU/L Alkaline Phosphatase (38-126) U/L Total Protein (6.3-8.2) g/dL Albumin (3.5-5.0) g/dL Globulin (1.7-4.1) g/dL Albumin/Globulin Ratio (1.0-2.8) Lipase (23-300) U/L Urine RBC 0-1/hpf (0-5/HPF) Urine WBC 1-5/hpf (0-5/HPF) Ur Squamous Epith Cells 0-1 /hpf (0-5/HPF) Urine Bacteria Occasional (0-1) (None) Urine Mucus 2+ H (Negative) Ur Culture Indicated? Specimen cultured U Morph 300 ng/mL cutoff Negative (Negative) Ur Oxycodone Screen Negative (Negative) Urine Methadone Screen Negative (Negative) Ur Barbiturates Screen Negative (Negative) U Tricyclic Antidepress Negative (Negative) Ur Phencyclidine Scrn Negative (Negative) Ur Amphetamines Screen Negative (Negative) U Methamphetamines Scrn Negative (Negative) Ur MDMA Scrn (Ecstasy) Negative (Negative) U Benzodiazepines Scrn Negative (Negative) Urine Cocaine Screen Negative (Negative) U Marijuana (THC) Screen Negative (Negative) Ethyl Alcohol 220 H ( - 10) mg/dL Urine Dip Bedside Urine Glucose Negative Bedside Urine Bilirubin - Negative Bedside Urine Ketone - Negative Urine Specific [place] 1.020 Bedside Urine Occult Blood - Negative Bedside Urine pH 6.0 Bedside Urine Protein + 30 Bedside Urine Urobilinogen 1+ 2mg Bedside Urine Nitrite - Negative Bedside Urine Leukocytes +/- [address] scan - head: Radiologist's impression: PROCEDURE: CT HEAD/BRAIN WO CON INDICATIONS: etoh extreme tiredness TECHNIQUE: Noncontrast 4.5 mm thick angled axial sections acquired from the foramen magnum to the vertex, with coronal and sagittal reformats. For radiation dose reduction, the following was used: automated exposure control, adjustment of mA and/or kV according to patient size. COMPARISON: [facility], CT, HEAD WITHOUT CONTRAST, 07/15/2014, 17:33. FINDINGS: Image quality: Excellent. CSF spaces: Basal cisterns are patent. No extra-axial fluid collections. Ventricles are normal in size and shape. Brain: No midline shift. No intracranial masses or hemorrhage. Wheat-white matter interface is normal. Skull and face: Calvarium and visualized facial bones are intact, without suspicious lesions. Sinuses: Visualized sinuses and mastoids are clear. IMPRESSION: Normal intracranial study, without an imaging explanation found for patient's presenting symptoms. Dictated by: Pineda Anne M.D. on 08/25/2019 at 9:16 Approved by: Pineda Anne M.D. on 08/25/2019 at 9:16 ECG Data Attestation: I personally reviewed and interpreted this ECG as follows: Prior ECG tracings: available for review Interpretation: Sinus tachycardia rate 113 p.r. interval 172 QRS [address] elevations depressions or T-wave inversions similar to previous EKGs MDM Narrative Medical decision making narrative: Patient has tolerated phenobarbital well his shaking and symptoms have improved. Head CT was negative. He has been accepted at a detox his will drive him there. He is given a taper for Ativan as well. CIWA-Ar for Alcohol Withdrawal from [employer] on 08/25/2019 All calculations should be rechecked by clinician prior to use RESULT SUMMARY: 5 points Patients with scores ?8 typically do not require medication for withdrawal. INPUTS: Nausea/vomiting ?> 1 = Mild nausea and no vomiting Tremor ?> 1 = Not visible, but can be felt fingertip to fingertip Paroxysmal sweats ?> 0 = No sweat visible Anxiety ?> 2 = (More severe symptoms) Agitation ?> 0 = Normal activity Tactile disturbances ?> 0 = None Auditory disturbances ?> 0 = Not present Visual disturbances ?> 0 = Not present Headache/fullness in head ?> 0 = Not Present Orientation/clouding of sensorium ?> 1 = Can't do serial additions or is uncertain about date Discharge Plan Departure Patient Disposition: Home Clinical Impression: Alcohol dependence Qualifiers: Substance use status: uncomplicated Qualified Code(s): F10.20 - Alcohol dependence, uncomplicated Discharge Date/Time: 08/25/19 15:14 Instructions: DI for Alcohol Abuse Activity Restrictions/Additional Instructions: Go directly to detox *You have been diagnosed with alcohol dependence and withdrawal *What to do: *Continue to take medications as directed day 1: Ativan 2 mg 3 times a day Day 2: Ativan 1 mg 3 times a day Day 3 and 4: Ativan 1 mg twice a day Day 5 and 6: Ativan 1mg once a day *Follow up with your primary care provider in 2-3 days *Return to ER if you should have tremors, seizures or any new, worsening or concerning symptoms Prescriptions: New lorazepam [Ativan] 1 mg tablet 1 mg PO TID Qty: 15 RF: 0 No Action vitamin B complex tablet 1 tab PO DAILY RF: 0 lisinopril-hydrochlorothiazide 20-12.5 mg tablet 1 tab PO DAILY Qty: 90 RF: 1 omeprazole 20 mg capsule,delayed release(DR/EC) 20 mg PO DAILY RF: 0 ondansetron 4 mg tablet,disintegrating 4 mg PO Q6H PRN (Reason: nausea and vomiting) Qty: 20 RF: 0 Referrals: Tracee Knott PA-C [Primary Care Provider] -
[2019-08-25 08:55] LABS: Add Manual Diff / Slide Review NO; Basophils Absolute Auto 100 /uL (0-100); Basophils Percent Auto 1.1 % (0-2); Eosinophils Absolute Auto 100 /uL (0-450); Eosinophils Percent Auto 0.7 % (2-4); Hematocrit 39.6 % (41-53); Hemoglobin 13.9 g/dL (13.5-17.5); Lymphocytes Absolute Auto 1900 /uL (1100-4500); Lymphocytes Percent Auto 22.8 % (25-40); Mean Corpuscular HGB Conc 35.1 % (30-36); Mean Corpuscular Hemoglobin 32.9 PG (26-34); Mean Corpuscular Volume 93.8 fL (80-100); Monocytes Absolute Auto 400 /uL (0-900); Neutrophils Absolute Auto 5900 /uL (1500-7000); Neutrophils Percent Auto 70.4 % (50-75); Platelet Count 215 X10^3/uL (150-400); Red Blood Cell Count 4.22 X10^6/uL (4.5-5.9); Red Cell Distribution Width 14.6 % (11.6-14.8); White Blood Cell Count 8.3 X10^3/uL (4.5-11.0)
[2019-08-25 09:03] LABS: INR 1.4 (0.9-1.3); Prothrombin Time 16.3 SECONDS (10.1-12.7)
[2019-08-25 09:06] LABS: PTT Partial Thromboplastin Tim 38 SECONDS (26.4-36.2)
[2019-08-25] MEDS: PHENobarbital 65 MG/ML VIAL 130 MG IV (09:06)
[2019-08-25 09:08] LABS: Alanine Aminotransferase 56 IU/L (<50); Albumin 4.4 g/dL (3.5-5.0); Alkaline Phosphatase 126 U/L (38-126); Aspartate Aminotransferase 215 IU/L (17-59); Bilirubin Total 2.6 mg/dL (0.2-1.3); Blood Urea Nitrogen 6 mg/dL (9-20); Calcium 8.6 mg/dL (8.4-10.2); Carbon Dioxide 24 mmol/L (22-32); Chloride 95 mmol/L (98-107); Estimated Glomerular Filt Rate > 60.0 mL/min (>60); Ethanol (ETOH) 220 mg/dL; Globulin 4.5 g/dL (1.7-4.1); Glucose 141 mg/dL (70-100); HEMOLYSIS < 15 (0-50); Lipase 444 U/L (23-300); Potassium 3.2 mmol/L (3.4-5.1); Sodium 134 mmol/L (137-145); Total Protein 8.9 g/dL (6.3-8.2)
--- NOTE | 2019-08-25 09:44 | DI.CT.S_ITS ---
PROCEDURE: CT HEAD/BRAIN WO CON INDICATIONS: etoh extreme tiredness TECHNIQUE: Noncontrast 4.5 mm thick angled axial sections acquired from the foramen magnum to the vertex, with coronal and sagittal reformats. For radiation dose reduction, the following was used: automated exposure control, adjustment of mA and/or kV according to patient size. COMPARISON: [facility], CT, HEAD WITHOUT CONTRAST, 07/15/2014, 17:33. FINDINGS: Image quality: Excellent. CSF spaces: Basal cisterns are patent. No extra-axial fluid collections. Ventricles are normal in size and shape. Brain: No midline shift. No intracranial masses or hemorrhage. Wheat-white matter interface is normal. Skull and face: Calvarium and visualized facial bones are intact, without suspicious lesions. Sinuses: Visualized sinuses and mastoids are clear. IMPRESSION: Normal intracranial study, without an imaging explanation found for patient's presenting symptoms. Dictated by: Pineda Anne M.D. on 08/25/2019 at 9:16 Approved by: Pineda Anne M.D. on 08/25/2019 at 9:16
[2019-08-25] MEDS: THIAMINE 100 MG in DEXTROSE 5 % IN WATER 50 ML 204 ML IV (10:08)
[2019-08-25 11:43] LABS: UR Morphine/Opiate cutoff 300 Negative (Negative); Ur Creatinine Normal (Normal); Ur Specific Gravity Normal (Normal); Urine Amphetamines Negative (Negative); Urine Barbiturates Negative (Negative); Urine Benzodiazepines Negative (Negative); Urine Cocaine Negative (Negative); Urine MDMA Negative (Negative); Urine Methadone Negative (Negative); Urine Methamphetamines Negative (Negative); Urine Oxycodone Negative (Negative); Urine Phencyclidine Negative (Negative); Urine Tetrahydrocannabinol Negative (Negative); Urine Tricyclic Antidepressant Negative (Negative); Urine pH Normal (Normal)
[2019-08-25 11:50] LABS: Bacteria Urine Occasional (0-1); Culture Indicated Urine Specimen Cultured; Mucus Urine 2+ (Negative); RBC Urine 0-1/HPF (0-5/HPF); Squamous Epithelial Cell Urine 0-1 /HPF (0-5/HPF); WBC Urine 1-5/HPF (0-5/HPF)
--- NOTE | 2019-08-25 12:40 | PC.NURSE ---
Call[facility] in [place] and spoke with Theo. He said he was familiar with the patient and that they had talked yesterday. He was accepted yesterday and was supposed to go to a different hospital yesterday to satisfy the [facility]'s intake criteria. Theo from the Crisis [facility] said they would accept him if we sent over his information and have a nurse to nurse report.
--- NOTE | 2019-08-25 13:04 | PC.NURSE ---
Pt off NPO status per Singh. Ice water supplied per Pt request.
--- NOTE | 2019-08-25 13:24 | PC.NURSE ---
RN called [facility] for report, they will call back when ready. # [phone].
== END 2019-08-25 15:14 | disposition home or self-care (01) ==
PROVIDERS: Emergency Provider Emergency Medicine; Family Provider Physician Assistant; PCP Physician Assistant
DX: F10.20 Alcohol dependence, uncomplicated (principal); R53.83 Other fatigue; R00.0 Tachycardia, unspecified
CPT/HCPCS: 36415; 70450; 80053; 80305; 80320; 81003; 81015; 83690; 85025; 85610; 85730; 87086; 93005; 96361; 96374; 96375; 99283; 99285; J2560

== ENCOUNTER 2019-11-19 05:50 | Emergency (ER) | payer OTHER, SELFPAY ==
[2019-11-19] VITALS (7 sets, daily range): BP systolic 121–175; BP diastolic 56–93; PULSE 92–110; RESP 16–20; TEMP 36.7; O2SAT 88–97; BMI 35.9
--- NOTE | 2019-11-19 06:10 | ED.ALCOHOL ---
HPI - Alcohol <Hosea Wilkes DO - Last Filed: 11/21/19 07:12> General Chief Complaint: Toxicology Problem Stated Complaint: dehydration shaking n/v alcohol Time Seen by Provider: 11/19/19 05:54 Source: patient Mode of arrival: Ambulatory Limitations: no limitations History of Present Illness HPI narrative: 34-year-old male with a history of hypertension, alcoholic cirrhosis presents with a multitude of complaints. He states that he typically drinks about a 0.5 gal daily but has not had anything within the past 24 hours because he was trying to sober up so he could drive his daughter to a movie theater. He states that over the course of the day he has become increasingly agitated and complains of some visual hallucinations, nausea with a few episodes of vomiting and resting tremors. He has been through alcohol withdrawal in the past but has never had seizures. His last episode was in August. He does admit to blood in his vomit. He denies any coffee-ground emesis nor any black tarry stools. MD complaint: alcohol intoxication and alcohol withdrawal Last drink: hours (ago) Chronic alcohol use: Yes Previous visits for alcohol intoxication: Yes Recent trauma: No Associated symptoms: nausea, vomiting, diaphoresis, tremors and hematemesis Treatments prior to arrival: none Related Data Home Medications Medication Instructions Recorded Confirmed vitamin B complex 1 tab PO DAILY 11/02/18 08/08/19 omeprazole 20 mg PO DAILY 08/08/19 08/08/19 Previous Rx's Medication Instructions Recorded lisinopril 20 1 tab PO DAILY #90 tab 11/02/18 mg-hydrochlorothiazide 12.5 mg tablet ondansetron 4 mg PO Q6H PRN #20 tab 08/08/19 lorazepam [Ativan] 1 mg PO TID #15 tab 08/25/19 Allergies Allergy/AdvReac Type Severity Reaction Status Date / Time Iodine and Iodide Containing Allergy Intermediate Hives Verified 08/25/19 08:34 Produc Review of Systems <DO Nalini Kapadia Last Filed: 11/21/19 07:12> Constitutional Constitutional: Reports chills, Reports difficulty sleeping, Reports fatigue, Denies fever(s), Denies frequent falls, Denies lethargy and Reports weakness Eyes Eyes: Denies change in vision, Denies eye discharge, Denies irritation and Denies loss of vision ENT Ears, Nose, Mouth, and Throat: Denies change in voice, Denies dizziness, Denies neck pain, Denies sore throat and Denies throat swelling Cardiovascular Cardiovascular: Denies chest pain, Denies irregular heart rhythm, Denies lightheadedness, Denies palpitations, Denies dyspnea, Denies dyspnea on exertion and Denies orthopnea Respiratory Respiratory: Denies cough, Denies dyspnea, Denies dyspnea on exertion and Denies wheezing Gastrointestinal Gastrointestinal: Denies change in bowel habits, Denies diarrhea, Reports nausea and Reports vomiting Genitourinary Genitourinary: Denies hematuria, Denies flank pain, Denies urinary incontinence and Denies urinary urgency Musculoskeletal Musculoskeletal: Denies back pain, Denies muscle weakness, Denies neck pain, Denies numbness and Reports tingling Integumentary/Breasts Skin/Breast: Denies pruritus, Denies erythema, Denies rash and Denies wounds Neurologic Neurologic: Denies behavioral changes, Reports confusion, Denies dizziness, Denies frequent falls, Denies loss of vision, Denies numbness, Reports other visual disturbances, Reports tingling and Reports weakness Psychiatric Psychiatric: Reports anxiety, Denies behavioral changes, Reports change in appetite, Reports confusion, Denies depression, Reports irritability, Denies homicidal ideation and Denies suicidal ideation Endocrine Endocrine: Reports fatigue, Denies flushing and Denies palpitations Hematologic/Lymphatic Hematologic/Lymphatic: Denies easy bruising Allergic/Immunologic Allergic/Immunologic: Denies urticaria, Denies throat swelling and Denies wheezing Patient History <Hosea Wilkes DO - Last Filed: 11/21/19 07:12> Medical History GERD (gastroesophageal reflux disease) (Chronic Unknown) H/O tinnitus (Chronic Unknown) Hypertension (Chronic Unknown) Irritable bowel syndrome (Acute Unknown) Liver disease (Acute Unknown) Substance abuse (Chronic Unknown) Social History Smoking Status: Never smoker second hand exposure: No alcohol intake: current (vodka everyday.) substance use type: does not use Smoking Status: Never smoker alcohol intake frequency: 3 or more drinks per day Alcohol type: hard liquor Substance Use Type: marijuana Exam <Hosea Wilkes DO - Last Filed: 11/21/19 07:12> Narrative Exam Narrative: GENERAL: [34] year old patient appears stated age. He is obviously very ill, agitated, tremulous, with some confusion and difficulty staying on task. HEAD: Atraumatic. Normocephalic. EYES: Pupils equal round and reactive. Extraocular motions intact. Scleral icterus present ENT: Nose without bleeding, purulent drainage. Throat without erythema, tonsillar hypertrophy or exudate. Airway patent. NECK: Trachea midline. Non tender CARDIOVASCULAR: Regular rate and rhythm without murmurs, gallops, or rubs. RESPIRATORY: Clear to auscultation. Breath sounds equal bilaterally. No wheezes, rales, or rhonchi. GASTROINTESTINAL: Abdomen soft, mild generalized tenderness, nondistended. EXTREMITIES: No edema or joint tenderness. BACK: Nontender without deformity or crepitance. No flank tenderness. NEURO: AOx3. Resting tremor, agitation SKIN: No rash or erythema of visible areas Initial Vital Signs Initial Vital Signs: Vital Signs Temperature 98.0 F 11/19/19 06:07 Pulse Rate 92 H 11/19/19 06:07 Respiratory Rate 18 11/19/19 06:07 Blood Pressure 175/93 H 11/19/19 06:07 Pulse Oximetry 95 11/19/19 06:07 <Jaquan Carpenter MD - Last Filed: 11/19/19 19:32> Initial Vital Signs Initial Vital Signs: Vital Signs Temperature 98.0 F 11/19/19 06:07 Pulse Rate 92 H 11/19/19 06:07 Respiratory Rate 18 11/19/19 06:07 Blood Pressure 175/93 H 11/19/19 06:07 Pulse Oximetry 95 11/19/19 06:07 Course <Hosea Wilkes DO - Last Filed: 11/21/19 07:12> Course Course Narrative: CIWA-Ar for Alcohol Withdrawal from [facility] on 11/19/2019 All calculations should be rechecked by clinician prior to use RESULT SUMMARY: 20 points Patients with scores ?20 frequently require medication for withdrawal, and may also require admission to the ICU for observation for seizures or development of delirium tremens, and more frequent medication dosing. INPUTS: Nausea/vomiting ?> 4 = Intermittent nausea with dry heaves Tremor ?> 6 = (More severe symptoms) Paroxysmal sweats ?> 0 = No sweat visible Anxiety ?> 4 = Moderately anxious, or guarded, so anxiety is inferred Agitation ?> 3 = (More severe symptoms) Tactile disturbances ?> 0 = None Auditory disturbances ?> 0 = Not present Visual disturbances ?> 3 = Moderate sensitivity Headache/fullness in head ?> 0 = Not Present Orientation/clouding of sensorium ?> 0 = Oriented, can do serial additions MELD Score (Model For End-Stage Liver Disease) (12 and older) from [facility] on 11/19/2019 All calculations should be rechecked by clinician prior to use RESULT SUMMARY: 20 points MELD Score (2016)* 19.6% Estimated 3-Month Mortality INPUTS: Dialysis at least twice in the past week ?> 0 = No Creatinine ?> 0.5 mg/dL Bilirubin ?> 6.9 mg/dL INR ?> 1.8 Sodium ?> 142 mEq/L Orders Ordered: Discontinued Medications Sodium Chloride (Normal Saline 0.9%) 1,000 mls @ 1,000 mls/hr IV BOLUS ONE Stop: 11/19/19 07:06 Last Infusion: 11/19/19 07:45 Dose: 0 mls/hr Documented by: Admin: 11/19/19 06:40 Dose: 1,000 mls/hr Documented by: RAY Pantoprazole Sodium 80 mg/ (Sodium Chloride) 100 mls @ 10 mls/hr IV CONT ANDRE Last Infusion: 11/19/19 10:34 Dose: 8 mg/hr, 10 mls/hr Documented by: Admin: 11/19/19 07:53 Dose: 8 mg/hr, 10 mls/hr Documented by: COLTEN Octreotide Acetate 500 mcg/ (Sodium Chloride) 101 mls @ 5.05 mls/hr IV CONT ANDRE; Protocol Last Infusion: 11/19/19 10:34 Dose: 25 mcg/hr, 5.05 mls/hr Documented by: Admin: 11/19/19 07:52 Dose: 25 mcg/hr, 5.05 mls/hr Documented by: COLTEN Sodium Chloride (Normal Saline 0.9%) 500 mls @ 50 mls/hr IV CONT ANDRE Last Infusion: 11/19/19 10:34 Dose: 50 mls/hr Documented by: Admin: 11/19/19 08:10 Dose: 50 mls/hr Documented by: COLTEN Ondansetron HCl (Zofran) 4 mg IV Q4HR PRN PRN Reason: Nausea And Vomiting Last Admin: 11/19/19 06:41 Dose: 4 mg Documented by: RAY Phenobarbital (Phenobarbital) 260 mg IV NOW ONE Stop: 11/19/19 06:08 Last Admin: 11/19/19 06:42 Dose: 260 mg Documented by: RAY Thiamine HCl (Vitamin B-1) 100 mg IV NOW ONE Stop: 11/19/19 06:10 Last Admin: 11/19/19 06:41 Dose: 100 mg Documented by: RAY Consultations Consultation #1: call to Gen Surgery here at [facility]. Cannot keep patient with known liver disease and hematemesis as we cannot care for varices here Consultation #2: call to [facility]. There are available beds Time: 06:56 Vital Signs Vital signs: Vital Signs - 8 hr 11/19/19 06:07 11/19/19 06:53 11/19/19 07:15 Temperature 98.0 F Pulse Rate 92 H 96 H Respiratory Rate 18 18 18 Blood Pressure 175/93 H Blood Pressure [Left Wrist] 129/70 Pulse Oximetry 95 97 88 L 11/19/19 07:16 11/19/19 07:30 11/19/19 09:11 Temperature Pulse Rate 94 H 105 H Respiratory Rate 18 19 16 Blood Pressure Blood Pressure [Left Wrist] 145/78 H 121/56 L Pulse Oximetry 94 94 94 <Jaquan Carpenter MD - Last Filed: 11/19/19 19:32> Orders Ordered: Discontinued Medications Sodium Chloride (Normal Saline 0.9%) 1,000 mls @ 1,000 mls/hr IV BOLUS ONE Stop: 11/19/19 07:06 Last Infusion: 11/19/19 07:45 Dose: 0 mls/hr Documented by: Admin: 11/19/19 06:40 Dose: 1,000 mls/hr Documented by: RAY Pantoprazole Sodium 80 mg/ (Sodium Chloride) 100 mls @ 10 mls/hr IV CONT ANDRE Last Infusion: 11/19/19 10:34 Dose: 8 mg/hr, 10 mls/hr Documented by: Admin: 11/19/19 07:53 Dose: 8 mg/hr, 10 mls/hr Documented by: COLTEN Octreotide Acetate 500 mcg/ (Sodium Chloride) 101 mls @ 5.05 mls/hr IV CONT ANDRE; Protocol Last Infusion: 11/19/19 10:34 Dose: 25 mcg/hr, 5.05 mls/hr Documented by: Admin: 11/19/19 07:52 Dose: 25 mcg/hr, 5.05 mls/hr Documented by: COLTEN Sodium Chloride (Normal Saline 0.9%) 500 mls @ 50 mls/hr IV CONT ANDRE Last Infusion: 11/19/19 10:34 Dose: 50 mls/hr Documented by: Admin: 11/19/19 08:10 Dose: 50 mls/hr Documented by: COLTEN Ondansetron HCl (Zofran) 4 mg IV Q4HR PRN PRN Reason: Nausea And Vomiting Last Admin: 11/19/19 06:41 Dose: 4 mg Documented by: RAY Phenobarbital (Phenobarbital) 260 mg IV NOW ONE Stop: 11/19/19 06:08 Last Admin: 11/19/19 06:42 Dose: 260 mg Documented by: RAY Thiamine HCl (Vitamin B-1) 100 mg IV NOW ONE Stop: 11/19/19 06:10 Last Admin: 11/19/19 06:41 Dose: 100 mg Documented by: RAY Vital Signs Vital signs: Vital Signs - 8 hr 11/19/19 06:07 11/19/19 06:53 11/19/19 07:15 Temperature 98.0 F Pulse Rate 92 H 96 H Respiratory Rate 18 18 18 Blood Pressure 175/93 H Blood Pressure [Left Wrist] 129/70 Pulse Oximetry 95 97 88 L 11/19/19 07:16 11/19/19 07:30 11/19/19 09:11 Temperature Pulse Rate 94 H 105 H Respiratory Rate 18 19 16 Blood Pressure Blood Pressure [Left Wrist] 145/78 H 121/56 L Pulse Oximetry 94 94 94 MDM - Alcohol <Hosea Wilkes DO - Last Filed: 11/21/19 07:12> Lab Data Result diagrams: 11/19/19 06:10 11/19/19 06:10 Labs: Lab Results 11/19/19 11/19/19 11/19/19 Range/Units 06:10 06:10 06:10 WBC (4.5-11.0) X10^3/uL RBC (4.5-5.9) X10^6/uL Hgb (13.5-17.5) g/dL Hct (41-53) % MCV (80-100) fL MCH (26-34) PG MCHC (30-36) % RDW (11.6-14.8) % Plt Count (150-400) X10^3/uL Neut % (Auto) (50-75) % Lymph % (Auto) (25-40) % [place] % (Auto) (3-14) % Eos % (Auto) (2-4) % Baso % (Auto) (0-2) % Neut # (Auto) (7273-1975) /uL Lymph # (Auto) (9412-9817) /uL [place] # (Auto) (0-900) /uL Eos # (Auto) (0-450) /uL Baso # (Auto) (0-100) /uL PT (10.1-12.7) SECONDS INR (0.9-1.3) APTT (26.4-36.2) SECONDS Sodium 142 (137-145) mmol/L Potassium 3.8 (3.4-5.1) mmol/L Chloride 100 (98-107) mmol/L Carbon Dioxide 29 (22-32) mmol/L BUN 3 L (9-20) mg/dL Creatinine 0.50 L (0.66-1.25) mg/dL Estimated GFR > 60.0 (>60) mL/min BUN/Creatinine Ratio 6.0 (6-22) Glucose 131 H (70-100) mg/dL Lactate (0.7-2.1) mmol/L Calcium 8.4 (8.4-10.2) mg/dL Magnesium (1.6-2.3) mg/dL Total Bilirubin 6.9 H (0.2-1.3) mg/dL AST 646 H (17-59) IU/L ALT 72 H (<50) IU/L Alkaline Phosphatase 160 H (38-126) U/L Ammonia 29 (9-30) umol/L Total Protein 9.8 H* (6.3-8.2) g/dL Albumin 3.9 (3.5-5.0) g/dL Globulin 5.9 H (1.7-4.1) g/dL Albumin/Globulin Ratio 0.7 L (1.0-2.8) Lipase (23-300) U/L Procalcitonin (<0.5) ng/mL Ethyl Alcohol 293 H ( - 10) mg/dL Blood Type A Negative Antibody Screen Negative 11/19/19 11/19/19 11/19/19 Range/Units 06:10 06:10 06:10 WBC 9.8 (4.5-11.0) X10^3/uL RBC 3.40 L (4.5-5.9) X10^6/uL Hgb 11.7 L (13.5-17.5) g/dL Hct 34.1 L (41-53) % MCV 100.3 H (80-100) fL MCH 34.4 H (26-34) PG MCHC 34.3 (30-36) % RDW 14.2 (11.6-14.8) % Plt Count 139 L (150-400) X10^3/uL Neut % (Auto) 72.2 (50-75) % Lymph % (Auto) 21.1 L (25-40) % [place] % (Auto) 5.1 (3-14) % Eos % (Auto) 0.8 L (2-4) % Baso % (Auto) 0.8 (0-2) % Neut # (Auto) 7000 (6424-2808) /uL Lymph # (Auto) 2100 (0048-3142) /uL [place] # (Auto) 500 (0-900) /uL Eos # (Auto) 100 (0-450) /uL Baso # (Auto) 100 (0-100) /uL PT 20.4 H (10.1-12.7) SECONDS INR 1.8 H (0.9-1.3) APTT 50 H D (26.4-36.2) SECONDS Sodium (137-145) mmol/L Potassium (3.4-5.1) mmol/L Chloride (98-107) mmol/L Carbon Dioxide (22-32) mmol/L BUN (9-20) mg/dL Creatinine (0.66-1.25) mg/dL Estimated GFR (>60) mL/min BUN/Creatinine Ratio (6-22) Glucose (70-100) mg/dL Lactate (0.7-2.1) mmol/L Calcium (8.4-10.2) mg/dL Magnesium (1.6-2.3) mg/dL Total Bilirubin (0.2-1.3) mg/dL AST (17-59) IU/L ALT (<50) IU/L Alkaline Phosphatase (38-126) U/L Ammonia (9-30) umol/L Total Protein (6.3-8.2) g/dL Albumin (3.5-5.0) g/dL Globulin (1.7-4.1) g/dL Albumin/Globulin Ratio (1.0-2.8) Lipase (23-300) U/L Procalcitonin 0.13 (<0.5) ng/mL Ethyl Alcohol ( - 10) mg/dL Blood Type Antibody Screen 11/19/19 11/19/19 11/19/19 Range/Units 06:10 06:10 06:10 WBC (4.5-11.0) X10^3/uL RBC (4.5-5.9) X10^6/uL Hgb (13.5-17.5) g/dL Hct (41-53) % MCV (80-100) fL MCH (26-34) PG MCHC (30-36) % RDW (11.6-14.8) % Plt Count (150-400) X10^3/uL Neut % (Auto) (50-75) % Lymph % (Auto) (25-40) % [place] % (Auto) (3-14) % Eos % (Auto) (2-4) % Baso % (Auto) (0-2) % Neut # (Auto) (1451-1708) /uL Lymph # (Auto) (7350-1434) /uL [place] # (Auto) (0-900) /uL Eos # (Auto) (0-450) /uL Baso # (Auto) (0-100) /uL PT (10.1-12.7) SECONDS INR (0.9-1.3) APTT (26.4-36.2) SECONDS Sodium (137-145) mmol/L Potassium (3.4-5.1) mmol/L Chloride (98-107) mmol/L Carbon Dioxide (22-32) mmol/L BUN (9-20) mg/dL Creatinine (0.66-1.25) mg/dL Estimated GFR (>60) mL/min BUN/Creatinine Ratio (6-22) Glucose (70-100) mg/dL Lactate 1.9 (0.7-2.1) mmol/L Calcium (8.4-10.2) mg/dL Magnesium 1.8 (1.6-2.3) mg/dL Total Bilirubin (0.2-1.3) mg/dL AST (17-59) IU/L ALT (<50) IU/L Alkaline Phosphatase (38-126) U/L Ammonia (9-30) umol/L Total Protein (6.3-8.2) g/dL Albumin (3.5-5.0) g/dL Globulin (1.7-4.1) g/dL Albumin/Globulin Ratio (1.0-2.8) Lipase 280 (23-300) U/L Procalcitonin (<0.5) ng/mL Ethyl Alcohol ( - 10) mg/dL Blood Type Antibody Screen <Jaquan Carpenter MD - Last Filed: 11/19/19 19:32> Lab Data Labs: Lab Results 11/19/19 11/19/19 11/19/19 Range/Units 06:10 06:10 06:10 WBC (4.5-11.0) X10^3/uL RBC (4.5-5.9) X10^6/uL Hgb (13.5-17.5) g/dL Hct (41-53) % MCV (80-100) fL MCH (26-34) PG MCHC (30-36) % RDW (11.6-14.8) % Plt Count (150-400) X10^3/uL Neut % (Auto) (50-75) % Lymph % (Auto) (25-40) % [place] % (Auto) (3-14) % Eos % (Auto) (2-4) % Baso % (Auto) (0-2) % Neut # (Auto) (9197-4105) /uL Lymph # (Auto) (1514-0591) /uL [place] # (Auto) (0-900) /uL Eos # (Auto) (0-450) /uL Baso # (Auto) (0-100) /uL PT (10.1-12.7) SECONDS INR (0.9-1.3) APTT (26.4-36.2) SECONDS Sodium 142 (137-145) mmol/L Potassium 3.8 (3.4-5.1) mmol/L Chloride 100 (98-107) mmol/L Carbon Dioxide 29 (22-32) mmol/L BUN 3 L (9-20) mg/dL Creatinine 0.50 L (0.66-1.25) mg/dL Estimated GFR > 60.0 (>60) mL/min BUN/Creatinine Ratio 6.0 (6-22) Glucose 131 H (70-100) mg/dL Lactate (0.7-2.1) mmol/L Calcium 8.4 (8.4-10.2) mg/dL Magnesium (1.6-2.3) mg/dL Total Bilirubin 6.9 H (0.2-1.3) mg/dL AST 646 H (17-59) IU/L ALT 72 H (<50) IU/L Alkaline Phosphatase 160 H (38-126) U/L Ammonia 29 (9-30) umol/L Total Protein 9.8 H* (6.3-8.2) g/dL Albumin 3.9 (3.5-5.0) g/dL Globulin 5.9 H (1.7-4.1) g/dL Albumin/Globulin Ratio 0.7 L (1.0-2.8) Lipase (23-300) U/L Procalcitonin (<0.5) ng/mL Ethyl Alcohol 293 H ( - 10) mg/dL Blood Type A Negative Antibody Screen Negative 11/19/19 11/19/19 11/19/19 Range/Units 06:10 06:10 06:10 WBC 9.8 (4.5-11.0) X10^3/uL RBC 3.40 L (4.5-5.9) X10^6/uL Hgb 11.7 L (13.5-17.5) g/dL Hct 34.1 L (41-53) % MCV 100.3 H (80-100) fL MCH 34.4 H (26-34) PG MCHC 34.3 (30-36) % RDW 14.2 (11.6-14.8) % Plt Count 139 L (150-400) X10^3/uL Neut % (Auto) 72.2 (50-75) % Lymph % (Auto) 21.1 L (25-40) % [place] % (Auto) 5.1 (3-14) % Eos % (Auto) 0.8 L (2-4) % Baso % (Auto) 0.8 (0-2) % Neut # (Auto) 7000 (6681-3891) /uL Lymph # (Auto) 2100 (7257-3001) /uL [place] # (Auto) 500 (0-900) /uL Eos # (Auto) 100 (0-450) /uL Baso # (Auto) 100 (0-100) /uL PT 20.4 H (10.1-12.7) SECONDS INR 1.8 H (0.9-1.3) APTT 50 H D (26.4-36.2) SECONDS Sodium (137-145) mmol/L Potassium (3.4-5.1) mmol/L Chloride (98-107) mmol/L Carbon Dioxide (22-32) mmol/L BUN (9-20) mg/dL Creatinine (0.66-1.25) mg/dL Estimated GFR (>60) mL/min BUN/Creatinine Ratio (6-22) Glucose (70-100) mg/dL Lactate (0.7-2.1) mmol/L Calcium (8.4-10.2) mg/dL Magnesium (1.6-2.3) mg/dL Total Bilirubin (0.2-1.3) mg/dL AST (17-59) IU/L ALT (<50) IU/L Alkaline Phosphatase (38-126) U/L Ammonia (9-30) umol/L Total Protein (6.3-8.2) g/dL Albumin (3.5-5.0) g/dL Globulin (1.7-4.1) g/dL Albumin/Globulin Ratio (1.0-2.8) Lipase (23-300) U/L Procalcitonin 0.13 (<0.5) ng/mL Ethyl Alcohol ( - 10) mg/dL Blood Type Antibody Screen 11/19/19 11/19/19 11/19/19 Range/Units 06:10 06:10 06:10 WBC (4.5-11.0) X10^3/uL RBC (4.5-5.9) X10^6/uL Hgb (13.5-17.5) g/dL Hct (41-53) % MCV (80-100) fL MCH (26-34) PG MCHC (30-36) % RDW (11.6-14.8) % Plt Count (150-400) X10^3/uL Neut % (Auto) (50-75) % Lymph % (Auto) (25-40) % [place] % (Auto) (3-14) % Eos % (Auto) (2-4) % Baso % (Auto) (0-2) % Neut # (Auto) (5807-1871) /uL Lymph # (Auto) (2276-7532) /uL [place] # (Auto) (0-900) /uL Eos # (Auto) (0-450) /uL Baso # (Auto) (0-100) /uL PT (10.1-12.7) SECONDS INR (0.9-1.3) APTT (26.4-36.2) SECONDS Sodium (137-145) mmol/L Potassium (3.4-5.1) mmol/L Chloride (98-107) mmol/L Carbon Dioxide (22-32) mmol/L BUN (9-20) mg/dL Creatinine (0.66-1.25) mg/dL Estimated GFR (>60) mL/min BUN/Creatinine Ratio (6-22) Glucose (70-100) mg/dL Lactate 1.9 (0.7-2.1) mmol/L Calcium (8.4-10.2) mg/dL Magnesium 1.8 (1.6-2.3) mg/dL Total Bilirubin (0.2-1.3) mg/dL AST (17-59) IU/L ALT (<50) IU/L Alkaline Phosphatase (38-126) U/L Ammonia (9-30) umol/L Total Protein (6.3-8.2) g/dL Albumin (3.5-5.0) g/dL Globulin (1.7-4.1) g/dL Albumin/Globulin Ratio (1.0-2.8) Lipase 280 (23-300) U/L Procalcitonin (<0.5) ng/mL Ethyl Alcohol ( - 10) mg/dL Blood Type Antibody Screen MDM Narrative Medical decision making narrative: [id number] Dr. Wilkes provided report when he checked the patient out at the change of shift. The patient is being transferred to [facility] for treatment of alcohol withdrawal and detoxification with an acute upper GI bleed rule out esophageal varices. The patient has been stable since report was received in the patient will be transferred by ambulance ALS at this time. The receiving hospitalist will be Dr. Guzman, and the consulting papier mache' molder will be Dr.Li Sharma. He is currently stable. Critical Care Time <Hosea Wilkes, DO - Last Filed: 11/21/19 07:12> Critical Care Time Critical Care Time: Yes Total Critical Care Time: 30 Attestation: The high probability of a clinically significant, sudden or life threatening deterioration of the [CV, GI] system(s) required my full and direct attention, intervention and personal management. The aggregate critical care time was [30] minutes. This time is in addition to time spent performing reported procedures but includes the following: [x] Data Review and interpretation [x] Patient assessment and monitoring of vital signs [x] Documentation [x] Medication orders and management Discharge Plan Departure Patient Disposition: [facility] Clinical Impression: Acute upper gastrointestinal bleeding, Alcohol withdrawal delirium Discharge Date/Time: 11/19/19 10:33 Prescriptions: No Action vitamin B complex tablet 1 tab PO DAILY RF: 0 lisinopril-hydrochlorothiazide 20-12.5 mg tablet 1 tab PO DAILY Qty: 90 RF: 1 omeprazole 20 mg capsule,delayed release(DR/EC) 20 mg PO DAILY RF: 0 ondansetron 4 mg tablet,disintegrating 4 mg PO Q6H PRN (Reason: nausea and vomiting) Qty: 20 RF: 0 lorazepam [Ativan] 1 mg tablet 1 mg PO TID Qty: 15 RF: 0 Referrals: Tracee Knott PA-C [Primary Care Provider] -
[2019-11-19 06:31] LABS: Ammonia (NH3) 29 umol/L (9-30); INR 1.8 (0.9-1.3); Prothrombin Time 20.4 SECONDS (10.1-12.7)
[2019-11-19 06:32] LABS: Add Manual Diff / Slide Review NO; Basophils Absolute Auto 100 /uL (0-100); Basophils Percent Auto 0.8 % (0-2); Eosinophils Absolute Auto 100 /uL (0-450); Eosinophils Percent Auto 0.8 % (2-4); Hematocrit 34.1 % (41-53); Hemoglobin 11.7 g/dL (13.5-17.5); Lymphocytes Absolute Auto 2100 /uL (1100-4500); Lymphocytes Percent Auto 21.1 % (25-40); Mean Corpuscular HGB Conc 34.3 % (30-36); Mean Corpuscular Hemoglobin 34.4 PG (26-34); Mean Corpuscular Volume 100.3 fL (80-100); Monocytes Absolute Auto 500 /uL (0-900); Monocytes Percent Auto 5.1 % (3-14); Neutrophils Absolute Auto 7000 /uL (1500-7000); Neutrophils Percent Auto 72.2 % (50-75); Platelet Count 139 X10^3/uL (150-400); Red Cell Distribution Width 14.2 % (11.6-14.8); White Blood Cell Count 9.8 X10^3/uL (4.5-11.0)
[2019-11-19 06:33] LABS: PTT Partial Thromboplastin Tim 50 SECONDS (26.4-36.2)
[2019-11-19 06:34] LABS: Lactate (Lactic Acid) 1.9 mmol/L (0.7-2.1)
[2019-11-19 06:38] LABS: Lipase 280 U/L (23-300); Magnesium 1.8 mg/dL (1.6-2.3)
[2019-11-19 06:40] LABS: Alanine Aminotransferase 72 IU/L (<50); Albumin 3.9 g/dL (3.5-5.0); Albumin Globulin Ratio 0.7 (1.0-2.8); Alkaline Phosphatase 160 U/L (38-126); Aspartate Aminotransferase 646 IU/L (17-59); Bilirubin Total 6.9 mg/dL (0.2-1.3); Blood Urea Nitrogen 3 mg/dL (9-20); Calcium 8.4 mg/dL (8.4-10.2); Carbon Dioxide 29 mmol/L (22-32); Chloride 100 mmol/L (98-107); Estimated Glomerular Filt Rate > 60.0 mL/min (>60); Ethanol (ETOH) 293 mg/dL; Globulin 5.9 g/dL (1.7-4.1); Glucose 131 mg/dL (70-100); HEMOLYSIS < 15 (0-50); Potassium 3.8 mmol/L (3.4-5.1); Sodium 142 mmol/L (137-145)
[2019-11-19] MEDS: SODIUM CHLORIDE 0.9% 1,000 ML 1000 ML IV (06:40)
[2019-11-19] MEDS: THIAMINE 200 MG/2 ML VIAL 100 MG IV (06:41)
[2019-11-19] MEDS: ONDANSETRON 4 MG/2 ML INJ IV (06:41)
[2019-11-19] MEDS: PHENobarbital 65 MG/ML VIAL 260 MG IV (06:42)
[2019-11-19 06:48] LABS: Total Protein 9.8 g/dL (6.3-8.2)
[2019-11-19 06:51] LABS: Procalcitonin 0.13 ng/mL (<0.5)
[2019-11-19] MEDS: OCTREOTIDE 500 MCG in SODIUM CHLORIDE 0.9% 100 ML 5.05 ML IV (07:52)
[2019-11-19] MEDS: PANTOPRAZOLE 80 MG in SODIUM CHLORIDE 0.9% 100 ML 10 ML IV (07:53)
--- NOTE | 2019-11-19 07:56 | PC.NURSE ---
put patient on 2L nasal cannulla per RN, satting at 88% room air good pleth.
[2019-11-19] MEDS: SODIUM CHLORIDE 0.9% 500 ML 50 ML IV (08:10)
== END 2019-11-19 10:33 | disposition short-term general hospital (02) ==
PROVIDERS: Emergency Medicine; Emergency Provider Emergency Medicine; Family Provider Physician Assistant; PCP Physician Assistant
DX: K92.2 Gastrointestinal hemorrhage, unspecified (principal); F10.231 Alcohol dependence with withdrawal delirium
CPT/HCPCS: 36415; 80053; 80320; 82140; 83605; 83690; 83735; 84145; 85025; 85610; 85730; 86850; 86900; 86901; 96361; 96365; 96366; 96368; 96375; 99285; C9113; J2354; J2405; J2560

== ENCOUNTER → 2019-11-30 16:12 | Outpatient (CLI) | payer OTHER, SELFPAY ==
[2019-11-30 17:05] LABS: Add Manual Diff / Slide Review NO; Basophils Absolute Auto 100 /uL (0-100); Basophils Percent Auto 0.7 % (0-2); Eosinophils Absolute Auto 100 /uL (0-450); Eosinophils Percent Auto 0.5 % (2-4); Hematocrit 31.8 % (41-53); Hemoglobin 10.7 g/dL (13.5-17.5); Lymphocytes Absolute Auto 2100 /uL (1100-4500); Lymphocytes Percent Auto 13.6 % (25-40); Mean Corpuscular HGB Conc 33.7 % (30-36); Mean Corpuscular Hemoglobin 34.1 PG (26-34); Mean Corpuscular Volume 101.2 fL (80-100); Monocytes Absolute Auto 1500 /uL (0-900); Monocytes Percent Auto 9.4 % (3-14); Neutrophils Absolute Auto 11800 /uL (1500-7000); Neutrophils Percent Auto 75.8 % (50-75); Platelet Count 187 X10^3/uL (150-400); Red Blood Cell Count 3.14 X10^6/uL (4.5-5.9); Red Cell Distribution Width 15.9 % (11.6-14.8); White Blood Cell Count 15.6 X10^3/uL (4.5-11.0)
[2019-11-30 17:22] LABS: Prothrombin Time 22.5 SECONDS (10.1-12.7)
[2019-11-30 17:36] LABS: Alanine Aminotransferase 78 IU/L (<50); Albumin 3.5 g/dL (3.5-5.0); Albumin Globulin Ratio 0.7 (1.0-2.8); Alkaline Phosphatase 96 U/L (38-126); Aspartate Aminotransferase 130 IU/L (17-59); BUN Creatinine Ratio 18.6 (6-22); Bilirubin Total 6.7 mg/dL (0.2-1.3); Blood Urea Nitrogen 13 mg/dL (9-20); Calcium 8.8 mg/dL (8.4-10.2); Carbon Dioxide 27 mmol/L (22-32); Chloride 99 mmol/L (98-107); Estimated Glomerular Filt Rate > 60.0 mL/min (>60); Glucose 100 mg/dL (70-100); HEMOLYSIS < 15 (0-50); Lipase 444 U/L (23-300); Potassium 3.3 mmol/L (3.4-5.1); Sodium 137 mmol/L (137-145); Total Protein 8.5 g/dL (6.3-8.2)
[2019-11-30 18:33] LABS: Thyroid Stimulating Hormone 2.33 uIU/mL (0.47-4.68)
== END ==
PROVIDERS: Family Provider Physician Assistant; PCP Family Medicine; Referring Provider Family Medicine; Visit Provider Family Medicine
DX: K70.11 Alcoholic hepatitis with ascites (principal)
CPT/HCPCS: 36415; 80053; 83690; 84443; 85025; 85610

== ENCOUNTER → 2020-03-12 16:14 | Outpatient (CLI) | payer OTHER, SELFPAY ==
[2020-03-12 16:55] LABS: Add Manual Diff / Slide Review NO; Basophils Absolute Auto 100 /uL (0-100); Eosinophils Absolute Auto 100 /uL (0-450); Eosinophils Percent Auto 1.2 % (2-4); Hematocrit 26.3 % (41-53); Hemoglobin 9.4 g/dL (13.5-17.5); Lymphocytes Absolute Auto 1900 /uL (1100-4500); Lymphocytes Percent Auto 31.2 % (25-40); Mean Corpuscular HGB Conc 35.9 % (30-36); Mean Corpuscular Hemoglobin 34.5 PG (26-34); Mean Corpuscular Volume 96.3 fL (80-100); Monocytes Absolute Auto 500 /uL (0-900); Monocytes Percent Auto 8.6 % (3-14); Neutrophils Absolute Auto 3600 /uL (1500-7000); Platelet Count 145 X10^3/uL (150-400); Red Blood Cell Count 2.74 X10^6/uL (4.5-5.9); Red Cell Distribution Width 13.1 % (11.6-14.8); White Blood Cell Count 6.2 X10^3/uL (4.5-11.0)
[2020-03-12 17:19] LABS: Iron 89 ug/dL (49-181)
[2020-03-12 17:23] LABS: Alanine Aminotransferase 24 IU/L (<50); Alkaline Phosphatase 60 U/L (38-126); Aspartate Aminotransferase 48 IU/L (17-59); BUN Creatinine Ratio 10.7 (6-22); Bilirubin Total 3.5 mg/dL (0.2-1.3); Blood Urea Nitrogen 8 mg/dL (9-20); Calcium 9.2 mg/dL (8.4-10.2); Carbon Dioxide 25 mmol/L (22-32); Chloride 102 mmol/L (98-107); Estimated Glomerular Filt Rate > 60.0 mL/min (>60); Globulin 4.1 g/dL (1.7-4.1); Glucose 115 mg/dL (70-100); HEMOLYSIS < 15 (0-50); Potassium 3.7 mmol/L (3.4-5.1); Sodium 135 mmol/L (137-145); Total Protein 8.1 g/dL (6.3-8.2)
[2020-03-12 17:55] LABS: Ferritin 68 ng/mL (18-464)
[2020-03-12 18:09] LABS: Vitamin B12 812 pg/mL (239-931)
[2020-03-14 05:10] LABS: Ethyl Glucuronide Screen Negative ng/mL (Cutoff=500)
== END ==
PROVIDERS: Family Provider Physician Assistant; PCP Family Medicine; Referring Provider Family Medicine; Visit Provider Family Medicine
DX: I10 Essential (primary) hypertension (principal); K70.11 Alcoholic hepatitis with ascites; K76.0 Fatty (change of) liver, not elsewhere classified
CPT/HCPCS: 36415; 80053; 80321; 82607; 82728; 83540; 85025

== ENCOUNTER → 2020-03-14 15:53 | Outpatient (CLI) | payer OTHER, SELFPAY ==
[2020-03-14 16:14] LABS: Add Manual Diff / Slide Review NO; Basophils Absolute Auto 100 /uL (0-100); Basophils Percent Auto 1.2 % (0-2); Eosinophils Absolute Auto 100 /uL (0-450); Hemoglobin 10.3 g/dL (13.5-17.5); Lymphocytes Absolute Auto 1900 /uL (1100-4500); Lymphocytes Percent Auto 33.3 % (25-40); Mean Corpuscular HGB Conc 35.4 % (30-36); Mean Corpuscular Hemoglobin 34.3 PG (26-34); Mean Corpuscular Volume 96.7 fL (80-100); Monocytes Absolute Auto 500 /uL (0-900); Monocytes Percent Auto 8.7 % (3-14); Neutrophils Absolute Auto 3200 /uL (1500-7000); Neutrophils Percent Auto 55.8 % (50-75); Platelet Count 148 X10^3/uL (150-400); Red Cell Distribution Width 13.9 % (11.6-14.8); White Blood Cell Count 5.8 X10^3/uL (4.5-11.0)
[2020-03-14 16:15] LABS: INR 1.8 (0.9-1.3); Prothrombin Time 20.8 SECONDS (10.1-12.7)
[2020-03-14 16:17] LABS: Reticulocyte Count, Percent 1.9 % (0.87-2.60)
[2020-03-14 16:24] LABS: Alanine Aminotransferase 28 IU/L (<50); Albumin 4.3 g/dL (3.5-5.0); Alkaline Phosphatase 67 U/L (38-126); Amylase 98 U/L (30-110); Aspartate Aminotransferase 58 IU/L (17-59); BUN Creatinine Ratio 6.3 (6-22); Bilirubin Total 4.1 mg/dL (0.2-1.3); Blood Urea Nitrogen 4 mg/dL (9-20); Calcium 9.3 mg/dL (8.4-10.2); Carbon Dioxide 26 mmol/L (22-32); Chloride 100 mmol/L (98-107); Estimated Glomerular Filt Rate > 60.0 mL/min (>60); Globulin 4.3 g/dL (1.7-4.1); Glucose 113 mg/dL (70-100); HEMOLYSIS < 15 (0-50); Lipase 199 U/L (23-300); Potassium 3.7 mmol/L (3.4-5.1); Sodium 136 mmol/L (137-145); Total Protein 8.6 g/dL (6.3-8.2)
[2020-03-14 16:26] LABS: Ammonia (NH3) 25 umol/L (9-30)
[2020-03-14 16:38] LABS: Iron 61 ug/dL (49-181)
[2020-03-14 16:56] LABS: Ferritin 73 ng/mL (18-464)
[2020-03-14 17:10] LABS: Vitamin B12 833 pg/mL (239-931)
== END ==
PROVIDERS: Family Provider Physician Assistant; PCP Family Medicine; Referring Provider Family Medicine; Visit Provider Family Medicine
DX: F10.20 Alcohol dependence, uncomplicated (principal); I10 Essential (primary) hypertension; K70.11 Alcoholic hepatitis with ascites; K76.0 Fatty (change of) liver, not elsewhere classified
CPT/HCPCS: 36415; 80053; 82140; 82150; 82607; 82728; 83540; 83690; 85025; 85045; 85610

== ENCOUNTER → 2020-04-17 17:57 | Outpatient (CLI) | payer OTHER, SELFPAY ==
[2020-04-17 18:22] LABS: Alanine Aminotransferase 31 IU/L (<50); Albumin 4.1 g/dL (3.5-5.0); Albumin Globulin Ratio 1.1 (1.0-2.8); Alkaline Phosphatase 61 U/L (38-126); Aspartate Aminotransferase 54 IU/L (17-59); BUN Creatinine Ratio 15.7 (6-22); Bilirubin Total 2.8 mg/dL (0.2-1.3); Blood Urea Nitrogen 14 mg/dL (9-20); Calcium 9.5 mg/dL (8.4-10.2); Carbon Dioxide 26 mmol/L (22-32); Chloride 100 mmol/L (98-107); Estimated Glomerular Filt Rate > 60.0 mL/min (>60); Globulin 3.6 g/dL (1.7-4.1); Glucose 134 mg/dL (70-100); HEMOLYSIS < 15 (0-50); Potassium 3.8 mmol/L (3.4-5.1); Sodium 134 mmol/L (137-145); Total Protein 7.7 g/dL (6.3-8.2)
== END ==
PROVIDERS: Family Provider Physician Assistant; PCP Family Medicine; Referring Provider Family Medicine; Visit Provider Family Medicine
DX: I10 Essential (primary) hypertension (principal)
CPT/HCPCS: 36415; 80053

== ENCOUNTER → 2020-05-05 16:52 | Outpatient (CLI) | payer OTHER, SELFPAY ==
[2020-05-05 18:14] LABS: Alanine Aminotransferase 22 IU/L (<50); Albumin 4.1 g/dL (3.5-5.0); Albumin Globulin Ratio 1.2 (1.0-2.8); Alkaline Phosphatase 68 U/L (38-126); Aspartate Aminotransferase 44 IU/L (17-59); BUN Creatinine Ratio 13.2 (6-22); Bilirubin Total 3.5 mg/dL (0.2-1.3); Blood Urea Nitrogen 10 mg/dL (9-20); Calcium 9.1 mg/dL (8.4-10.2); Carbon Dioxide 23 mmol/L (22-32); Chloride 104 mmol/L (98-107); Cholesterol 238 mg/dL (140-199); Estimated Glomerular Filt Rate > 60.0 mL/min (>60); Globulin 3.3 g/dL (1.7-4.1); Glucose 96 mg/dL (70-100); HDL Cholesterol 94 mg/dL (40-60); HEMOLYSIS < 15 (0-50); LDL Cholesterol Calculated 127 mg/dL (<100); Potassium 3.6 mmol/L (3.4-5.1); Sodium 136 mmol/L (137-145); Total Protein 7.4 g/dL (6.3-8.2); Triglycerides 87 mg/dL (35-150)
[2020-05-05 20:48] LABS: Creatinine Urine Random 142.5 mg/dL
[2020-05-05 20:54] LABS: Microalbumi Creatinin Ratio Ur 13.3 ug/mg CR (<30); Microalbumin Urine Random 1.9 mg/dL (0-1.6)
== END ==
PROVIDERS: Family Provider Physician Assistant; PCP Family Medicine; Referring Provider Family Medicine; Visit Provider Family Medicine
DX: I10 Essential (primary) hypertension (principal); K70.11 Alcoholic hepatitis with ascites
CPT/HCPCS: 36415; 80053; 80061; 82043; 82570

== ENCOUNTER → 2020-05-27 06:33 | Outpatient (CLI) | payer OTHER, SELFPAY ==
--- NOTE | 2020-05-27 06:35 | DI.ECHO.S_ITS ---
[place] [facility]---------+ [facility] +---------+ : : [address] : : : : [address] : : : : Phone: [phone] Echocardiogram Report + + :Name: DELON LIZARRAGA Study Date: 05/27/2020 Height: 74 in : :[facility] Weight: 367 lb : : Gender: Male BSA: 2.8 m2 : :: 1985 Age: 34 yrs BP: 155/71 mmHg: :Reason For Study: MURMUR, FATIGUE : : Performed By: Addie Hicks : :Referring: JANAK TERESA : + + Interpretation Summary Normal sinus rhythm. Normal LV size; mild concentric LVH; normal wall motion and LV systolic function. EF is 60-65%. Mild LA enlargement; otherwise normal chamber sizes. No significant valvular abnormalities. Compared to prior study 03/26/2016 no significant changes have occurred. Procedure: A two-dimensional transthoracic echocardiogram with color flow and Doppler was performed. The study quality was technically adequate. Comparison is made with the echocardiogram of 03/26/2016. Left Ventricle: The left ventricle is normal in size. There is mild concentric left ventricular hypertrophy. The ejection fraction is estimated to be 60-65%. Diastolic parameters suggest probable normal left ventricular diastolic function and normal filling pressures. Right Ventricle: The right ventricle is normal in size and function. Atria: The left atrium is mildly dilated. The right atrium is mildly dilated. There is no Doppler evidence for an interatrial shunt. Mitral Valve: The mitral valve leaflets appear mildly thickened, but open well. There is mild mitral regurgitation. Aortic Valve: The aortic valve is not well visualized. The aortic valve is trileaflet. The aortic valve opens well. There is no aortic valve stenosis. No aortic regurgitation is present. Tricuspid Valve: The tricuspid valve is normal in structure and function. Pulmonary artery pressures cannot be estimated because of the lack of a measurable TR jet velocity but the IVC suggests a CVP of around 8 mmHg. There is mild tricuspid regurgitation. Pulmonic Valve: The pulmonic valve is not well seen, but is grossly normal. There is no pulmonic valvular regurgitation. Great Vessels: The aortic root is normal size. The dimensions of the ascending aorta are normal. The IVC is dilated (diameter is greater than 2.1 cm) yet it collapses greater than 50% with a sniff. This suggests a right atrial pressure of 8 mm Hg. Pericardium/ Pleura There is no pericardial effusion. There is no pleural effusion. MMode/2D Measurements & Calculations LVIDd: 5.8 cm LVOT diam: 2.1 cm LVIDs: 3.7 cm Ao root diam: 2.8 cm FS: 35.7 % asc Aorta Diam: 2.8 cm EPSS: 0.50 cm Ao Arch Diam (Prox Trans): 3.1 cm IVSd: 1.1 cm LVPWd: 1.3 cm LV gutierrez. diameter/BSA (cm/m^2): 2.1 LV sys. diameter/BSA (cm/m^2): 1.3 LA A2 area: 26.9 cm2 RA long axis: 6.5 cm LA A4 area: 30.6 cm2 RA area: 28.3 cm2 LA length (vol): 6.3 cm RA vol: 104.9 ml LA vol: 110.7 ml RA : 37.3 ml/m2 LA vol index: 39.4 ml/m2 IVC diam: 2.3 cm RVD1 (basal): 3.9 cm TAPSE: 3.5 cm Doppler Measurements & Calculations Ao V2 max: 210.6 cm/sec LVOT Max Percy: 133.4 cm/sec Ao V2 mean: 148.3 cm/sec LV V1 max P.1 mmHg Ao max P.7 mmHg LV V1 VTI: 32.5 cm Ao mean P.7 mmHg AUTUMN(I,D): 2.3 cm2 Ao V2 VTI: 47.4 cm AUTUMN(V,D): 2.1 cm2 sev ratio: 0.69 AUTUMN indexed to BSA (cm^2/m^2): 0.82 MV E max percy: 130.6 cm/sec PA V2 max: 134.0 cm/sec MV A max percy: 77.1 cm/sec PA V2 mean: 96.0 cm/sec MV E/A: 1.7 PA mean P.2 mmHg Med Peak E' Percy: 11.5 cm/sec PA pr(Accel): -3.2 mmHg E/E' med: 11.4 Lat Peak E' Percy: 12.8 cm/sec E/E' lat: 10.2 E/e' average: 10.8 MV dec time: 0.20 sec SV(OT): 109.4 ml Electronically signed by: Dominique Marx M.D. on Reading Physician:05/27/2020 10:52 PM
--- NOTE | 2020-05-27 06:35 | DI.US.S_ITS ---
PROCEDURE: US ABDOMEN COMPLETE INDICATIONS: WEIGHT GAIN TECHNIQUE: Real-time scanning was performed of the abdominal and retroperitoneal organs, with image documentation. COMPARISON: [facility], CT, ABDOMEN/PELVIS WITH CONTRAST, 05/29/2014, 9:27. CT, CT ABD PELVIS W CON, 11/28/2015, 14:47. [facility], CT, CT ABDOMEN PELVIS W CON, 07/05/2019, 7:05. [facility], US, US ABDOMEN COMPLETE, 11/20/2019, 13:30. [facility], US, ABDOMEN COMPLETE, 08/16/2017, 9:13. FINDINGS: Liver: Mildly enlarged in size measuring 18.9 cm in maximum dimension. Simple cyst in the right lobe measuring 1.9 cm. Increased in echogenicity. Gallbladder: Nondilated. No stones or sludge. Normal gallbladder wall thickness. No pericholecystic fluid. Negative sonographic Espitia's sign. Pharyngeal cap. Biliary ducts: Intrahepatic bile ducts are non-dilated. Extrahepatic bile duct caliber measures 3 mm. Normal is 6-7 mm or less in diameter, or 10 mm or less post-cholecystectomy. Pancreas: Visualized portions of the pancreas are sonographically normal. Tail is not well seen. Spleen: Appears mildly enlarged. Greater than 15.7 cm in long axis. Inferior aspect of the spleen is not well seen. There is a lesion at the inferior pole of the spleen seen on prior CTs dating back to 2013 suggesting a benign etiology. Trace free fluid adjacent to the spleen. Kidneys: Kidneys are prominent in size. Normal echotexture. Right kidney measures 13.3 cm long; left kidney measures 15.2 cm long. No hydronephrosis or nephrolithiasis. No solid masses. Aorta: Visualized aorta is normal in caliber at less than 3 cm. Iliacs: Proximal common iliac arteries are normal in caliber at less than 2.5 cm. IVC: Intrahepatic inferior vena cava is patent. Miscellaneous: Trace free fluid in the left upper quadrant. IMPRESSION: 1. Hepatosplenomegaly. 2. Increased hepatic echogenicity most consistent with hepatic steatosis. Other forms of hepatocellular disease could have similar appearance. 3. Trace of fluid adjacent to the spleen. 4. No acute cholecystitis. No gallstones. 5. Kidneys are prominent size. No hydronephrosis. Dictated by: Mino Nicole M.D. on 05/27/2020 at 9:55 Approved by: Mino Nicole M.D. on 05/27/2020 at 10:06
== END ==
PROVIDERS: Family Provider Physician Assistant; PCP Family Medicine; Referring Provider Family Medicine; Visit Provider Family Medicine
DX: I08.1 Rheumatic disorders of both mitral and tricuspid valves (principal); K70.11 Alcoholic hepatitis with ascites; R16.2 Hepatomegaly with splenomegaly, not elsewhere classified; R01.1 Cardiac murmur, unspecified; R53.83 Other fatigue
CPT/HCPCS: 76700; 93306

== ENCOUNTER → 2020-06-18 13:45 | Outpatient (CLI) | payer OTHER, SELFPAY ==
[2020-06-18 14:54] LABS: Add Manual Diff / Slide Review NO; Basophils Absolute Auto 0 /uL (0-100); Basophils Percent Auto 0.8 % (0-2); Eosinophils Absolute Auto 0 /uL (0-450); Eosinophils Percent Auto 1.1 % (2-4); Hematocrit 29.5 % (41-53); Hemoglobin 10.3 g/dL (13.5-17.5); Lymphocytes Absolute Auto 1400 /uL (1100-4500); Lymphocytes Percent Auto 35.2 % (25-40); Mean Corpuscular HGB Conc 34.7 % (30-36); Mean Corpuscular Hemoglobin 33.3 PG (26-34); Mean Corpuscular Volume 96.1 fL (80-100); Monocytes Absolute Auto 300 /uL (0-900); Neutrophils Absolute Auto 2200 /uL (1500-7000); Neutrophils Percent Auto 55.9 % (50-75); Platelet Count 92 X10^3/uL (150-400); Red Blood Cell Count 3.08 X10^6/uL (4.5-5.9); Red Cell Distribution Width 14.9 % (11.6-14.8); White Blood Cell Count 3.9 X10^3/uL (4.5-11.0)
[2020-06-18 15:04] LABS: Hemoglobin A1C% w Est Avg Glu 4.2 % (4.0-6.0)
[2020-06-18 15:06] LABS: Prothrombin Time 22.9 SECONDS (10.1-12.7)
[2020-06-18 15:23] LABS: Alanine Aminotransferase 27 IU/L (<50); Albumin Globulin Ratio 1.1 (1.0-2.8); Alkaline Phosphatase 66 U/L (38-126); Aspartate Aminotransferase 53 IU/L (17-59); BUN Creatinine Ratio 7.6 (6-22); Bilirubin Total 4.1 mg/dL (0.2-1.3); Blood Urea Nitrogen 6 mg/dL (9-20); Carbon Dioxide 26 mmol/L (22-32); Chloride 103 mmol/L (98-107); Estimated Glomerular Filt Rate > 60.0 mL/min (>60); Globulin 3.7 g/dL (1.7-4.1); Glucose 100 mg/dL (70-100); HEMOLYSIS < 15 (0-50); Potassium 3.8 mmol/L (3.4-5.1); Sodium 138 mmol/L (137-145); Total Protein 7.7 g/dL (6.3-8.2)
== END ==
PROVIDERS: Family Provider Physician Assistant; PCP Family Medicine; Referring Provider Family Medicine; Visit Provider Family Medicine
DX: K70.11 Alcoholic hepatitis with ascites (principal); F10.20 Alcohol dependence, uncomplicated; K76.0 Fatty (change of) liver, not elsewhere classified; I10 Essential (primary) hypertension; R68.89 Other general symptoms and signs
CPT/HCPCS: 36415; 80053; 83036; 85025; 85610

== ENCOUNTER → 2020-06-27 13:15 | Outpatient (CLI) | payer OTHER, SELFPAY | PROVIDERS: Family Provider Physician Assistant; PCP Family Medicine; Referring Provider Family Medicine; Visit Provider Family Medicine | DX: K70.11 Alcoholic hepatitis with ascites (principal); Z53.8 Procedure and treatment not carried out for other reasons ==

== ENCOUNTER → 2020-07-04 13:10 | Outpatient (CLI) | payer OTHER, SELFPAY ==
--- NOTE | 2020-07-04 13:54 | DI.CT.S_ITS ---
PROCEDURE: CT ABDOMEN WO/W CON INDICATIONS: Alcoholic hepatitis with ascites TECHNIQUE: 4 phase scanning was performed. Non-contrast 5 mm axial sections acquired from the diaphragm to the iliac crests. Following the administration of intravenous contrast, 5 mm thick arterial-phase, portal venous-phase, and 5-minute delayed phase images were acquired through the liver. 5 mm thick coronal and sagittal reformats were performed. For radiation dose reduction, the following was used: automated exposure control, adjustment of mA and/or kV according to patient size. COMPARISON: [facility], CT, CT ABDOMEN PELVIS W CON, 07/05/2019, 7:05. FINDINGS: Image quality: Excellent. Lung bases: Lung bases are clear. Heart size is normal. Liver: The liver is enlarged, having a craniocaudad length of 19.7 cm. The liver radiodensity is normal except for presence of a segment 7 right hepatic cyst posteriorly. This is rounded and has an internal radiodensity of 8.4 Hounsfield units, water density. The degree of hepatomegaly and generalized fatty infiltration within the liver has improved from the comparison study 07/05/19. Other solid organs: Gallbladder contains 2 layers of faint calcification consistent with milk of calcium position dependently. The spleen is enlarged, without focal mass, measuring 13.3 cm craniocaudad.. Biliary system is non dilated. Pancreas is normal in morphology. No adrenal nodules. Both kidneys demonstrate normal size and enhancement, without hydronephrosis or nephrolithiasis. Nodes and vessels: No retroperitoneal or mesenteric adenopathy by size criteria. Aorta and inferior vena cava are normal in size. Bowel and peritoneum: Unenhanced bowel loops are normal in caliber. No free fluid or air. Bones: No suspicious bony lesions. No vertebral body compression fractures. Miscellaneous: No ventral hernias. IMPRESSION: Hepatosplenomegaly, but slightly improved from the comparison similar CT from July of 2019. No ascites found. Reduction in degree of fatty infiltration throughout the liver. No enlarging varices are identified. Incidental note is made of a newly identified small cyst within the right posterior hepatic segment, water in internal radiodensity and approximately 1.7 cm in maximal dimension. No definite hepatic solid mass lesion suspicious for representing interval development of hepatoma is seen. Dictated by: Segundo Woo M.D. on 07/04/2020 at 16:05 Approved by: Segundo Woo M.D. on 07/04/2020 at 16:12
== END ==
PROVIDERS: Family Provider Physician Assistant; PCP Family Medicine; Referring Provider Family Medicine; Visit Provider Family Medicine
DX: K70.11 Alcoholic hepatitis with ascites (principal); R16.2 Hepatomegaly with splenomegaly, not elsewhere classified; K76.89 Other specified diseases of liver
CPT/HCPCS: 74170; Q9967

== ENCOUNTER → 2020-07-30 16:13 | Outpatient (CLI) | payer OTHER, SELFPAY ==
[2020-07-30 17:48] LABS: INR 1.6 (0.9-1.3); Prothrombin Time 18.8 SECONDS (10.1-12.7)
[2020-07-30 17:57] LABS: Add Manual Diff / Slide Review NO; Basophils Absolute Auto 100 /uL (0-100); Eosinophils Absolute Auto 100 /uL (0-450); Eosinophils Percent Auto 1.4 % (2-4); Hematocrit 29.8 % (41-53); Hemoglobin 10.3 g/dL (13.5-17.5); Lymphocytes Absolute Auto 1900 /uL (1100-4500); Lymphocytes Percent Auto 32.6 % (25-40); Mean Corpuscular HGB Conc 34.5 % (30-36); Mean Corpuscular Volume 95.5 fL (80-100); Monocytes Absolute Auto 500 /uL (0-900); Monocytes Percent Auto 8.7 % (3-14); Neutrophils Absolute Auto 3300 /uL (1500-7000); Neutrophils Percent Auto 56.3 % (50-75); Platelet Count 123 X10^3/uL (150-400); Red Blood Cell Count 3.12 X10^6/uL (4.5-5.9); White Blood Cell Count 5.9 X10^3/uL (4.5-11.0)
[2020-07-30 18:26] LABS: Alanine Aminotransferase 32 IU/L (<50); Albumin 3.9 g/dL (3.5-5.0); Albumin Globulin Ratio 1.3 (1.0-2.8); Alkaline Phosphatase 63 U/L (38-126); Aspartate Aminotransferase 50 IU/L (17-59); Bilirubin Total 2.3 mg/dL (0.2-1.3); Blood Urea Nitrogen 17 mg/dL (9-20); Calcium 9.3 mg/dL (8.4-10.2); Carbon Dioxide 27 mmol/L (22-32); Chloride 100 mmol/L (98-107); Cholesterol 257 mg/dL (140-199); Estimated Glomerular Filt Rate > 60.0 mL/min (>60); Globulin 3.1 g/dL (1.7-4.1); Glucose 94 mg/dL (70-100); HDL Cholesterol 97 mg/dL (40-60); HEMOLYSIS < 15 (0-50); LDL Cholesterol Calculated 142 mg/dL (<100); Potassium 4.5 mmol/L (3.4-5.1); Sodium 134 mmol/L (137-145); Triglycerides 89 mg/dL (35-150)
--- NOTE | 2020-11-25 11:48 | ONC.MSW ---
Description: New Referral Navigation T/C Activity: Reviewed EMR and referral for acuity, medical status, and immediate needs. Forwarded to scheduling for next available initial consult time.
== END ==
PROVIDERS: Family Provider Physician Assistant; PCP Family Medicine; Referring Provider Family Medicine; Visit Provider Family Medicine
DX: D64.9 Anemia, unspecified (principal); I10 Essential (primary) hypertension; K70.11 Alcoholic hepatitis with ascites; K76.0 Fatty (change of) liver, not elsewhere classified
CPT/HCPCS: 36415; 80053; 80061; 85025; 85610

== ENCOUNTER 2020-11-18 19:08 | Emergency (ER) | payer OTHER, SELFPAY ==
[2020-11-18 19:11] VITALS: BP 150/66; PULSE 85; RESP 22; TEMP 37.1; O2SAT 100
--- NOTE | 2020-11-18 19:53 | ED.WOUNDLAC ---
HPI - Wound/Laceration General Chief Complaint: Wound/Laceration Stated Complaint: Lip Bleeding Time Seen by Provider: 11/18/20 19:50 Source: patient Mode of arrival: Ambulatory Limitations: no limitations History of Present Illness HPI narrative: Patient is a 35-year-old male here for evaluation of bleeding on his left lower lip. He states that many years ago he bit his left lower lip and ever since then he has had what he describes as a ?skin tag? over the area. He states that he occasionally bites this and it bleeds and that is what happened him this evening and he has been unable to control the bleeding. He has had low blood counts and low platelets in the past. Does have a history of alcohol abuse but has not drank in approximately 1 year. He came in because he could not get the bleeding stop. Related Data Home Medications Medication Instructions Recorded Confirmed vitamin B complex 1 tab PO DAILY 11/02/18 10/21/20 Previous Rx's Medication Instructions Recorded metoprolol tartrate 50 mg tablet 50 mg PO BID #180 tab 07/16/20 Allergies Allergy/AdvReac Type Severity Reaction Status Date / Time Iodine and Iodide Containing Allergy Intermediate Hives Verified 10/21/20 14:24 Produc Review of Systems Constitutional Constitutional: Denies fever(s) ENT Comments: Bleeding from left lower lip Integumentary/Breasts Comments: Bleeding from left lower lip Hematologic/Lymphatic Hematologic/Lymphatic: Reports easy bleeding On Anticoagulants: No Allergic/Immunologic Allergic/Immunologic: Denies urticaria Patient History Medical History Alcoholic hepatitis with ascites Anemia GERD (gastroesophageal reflux disease) (Unknown) H/O tinnitus (Unknown) Heart murmur Hypertension (Unknown) Irritable bowel syndrome (Unknown) Liver disease (Unknown) Perforated tympanic membrane of both ears on examination Substance abuse (Unknown) Social History Smoking Status: Never smoker second hand exposure: No alcohol intake: current (vodka everyday.) substance use type: marijuana (occasionally ) Smoking Status: Never smoker alcohol intake frequency: 3 or more drinks per day Alcohol type: hard liquor Substance Use Type: marijuana Exam Initial Vital Signs Initial Vital Signs: Vital Signs Temperature 98.7 F 11/18/20 19:11 Pulse Rate 85 02/16/21 19:11 Respiratory Rate 22 11/18/20 19:11 Blood Pressure 150/66 H 11/18/20 19:11 Pulse Oximetry 100 11/18/20 19:11 Const General: cooperative and comfortable HENMT Nose: external nose normal Face and sinus: normal facial exam Mouth: oral mucosae normal, tongue normal, moist mucous membranes and lip abnormal (Small pinpoint ?skin tag? left lower lip) Teeth and gingiva: dentition normal Throat: posterior oropharynx normal Skin Lesions: no lesions Rashes: no rashes Neuro General: patient alert and patient awake Extrem General: normal to inspection and capillary refill normal Course Vital Signs Vital signs: Vital Signs - 8 hr 11/18/20 19:11 11/18/20 20:40 Temperature 98.7 F Pulse Rate 85 85 Respiratory Rate 22 20 Blood Pressure 150/66 H 150/60 H Pulse Oximetry 100 99 MDM - Wound/Laceration MDM Narrative Medical decision making narrative: Patient does have what looks like a skin tag on his left lower lip. This was most likely area that was bleeding however does not currently bleeding. Informed him that he should talk with dentist or a oral surgeon to have it looked at potentially biopsied or removed. No further workup needed in the emergency department. Patient was given return precautions and follow-up instructions. He expressed understanding and agreement. Discharge Plan Departure Patient Disposition: Home Clinical Impression: Lip injury Activity Restrictions/Additional Instructions: Recommend you keep all of your scheduled medical appointments. Use the gauze sponge that you were given if the bleeding returns. I do recommend that you may contact with a dentist to see about having that spot removed. Return to the emergency department for any new or worsening symptoms Prescriptions: No Action vitamin B complex tablet 1 tab PO DAILY RF: 0 metoprolol tartrate 50 mg tablet 50 mg PO BID Qty: 180 RF: 1 Referrals: Chavez Solis DO [Primary Care Provider] -
[2020-11-18 20:40] VITALS: BP 150/60; PULSE 85; RESP 20; O2SAT 99
== END 2020-11-18 20:40 | disposition home or self-care (01) ==
PROVIDERS: Emergency Provider Emergency Medicine; Family Provider Physician Assistant; PCP Family Medicine
DX: L91.8 Other hypertrophic disorders of the skin (principal)
CPT/HCPCS: 99281

== ENCOUNTER → 2021-01-09 12:48 | Outpatient (CLI) | payer OTHER, SELFPAY ==
[2021-01-09] MEDS: COVID-19 VACC, Ad26(JANSSEN)/PF 0.5 ML IM (12:56)
== END ==
PROVIDERS: Family Provider Physician Assistant; PCP Family Medicine; Visit Provider Internal Medicine
DX: Z23 Encounter for immunization (principal)
CPT/HCPCS: 0031A; 91303

== ENCOUNTER 2021-02-18 17:06 | Emergency (ER) | payer OTHER, SELFPAY ==
[2021-02-18] VITALS (11 sets, daily range): BP systolic 144–166; BP diastolic 63–96; PULSE 91–103; RESP 18–32; TEMP 36.9–38.6; O2SAT 93–98; BMI 30.8
--- NOTE | 2021-02-18 17:37 | DI.RAD.S_ITS ---
PROCEDURE: XR CHEST 1V INDICATIONS: shortness of breath TECHNIQUE: One view of the chest was acquired. COMPARISON: [facility], , CHEST 2 VIEW, 06/01/2016, 18:43. FINDINGS: Surgical changes and devices: None. Lungs and pleura: No pleural effusions or pneumothorax. Low lung volumes and scattered atelectasis. Mediastinum: Mediastinal contours appear normal. Heart size is normal. Bones and chest wall: No suspicious bony lesions. Overlying soft tissues appear unremarkable. IMPRESSION: Low lung volumes and scattered atelectasis Dictated by: Robert Vasquez M.D. on 02/18/2021 at 19:12 Approved by: Robert Vasquez M.D. on 02/18/2021 at 19:13
[2021-02-18 17:56] LABS: Add Manual Diff / Slide Review NO; Basophils Absolute Auto 0 /uL (0-100); Basophils Percent Auto 0.5 % (0-2); Eosinophils Absolute Auto 100 /uL (0-450); Hematocrit 34.7 % (41-53); Hemoglobin 11.5 g/dL (13.5-17.5); Lymphocytes Absolute Auto 1300 /uL (1100-4500); Lymphocytes Percent Auto 20.7 % (25-40); Mean Corpuscular HGB Conc 33.1 % (30-36); Mean Corpuscular Hemoglobin 26.8 PG (26-34); Monocytes Absolute Auto 1000 /uL (0-900); Neutrophils Absolute Auto 4100 /uL (1500-7000); Neutrophils Percent Auto 62.8 % (50-75); Platelet Count 102 X10^3/uL (150-400); Red Blood Cell Count 4.28 X10^6/uL (4.5-5.9); White Blood Cell Count 6.5 X10^3/uL (4.5-11.0)
--- NOTE | 2021-02-18 18:01 | PC.NURSE ---
pt with h/o ETOH liver cirrhosis with L flank pain and L shoulder pain who appears uncomfortable when breathing. states pain to shallow breathing. yesterday was sitting in a chair and went to stand and reports hearing something pop in his mid back and started to develop L shoulder pain. signal tester reports fever in triage 101, rechecked orally at bedside and 98.5. HR 102. denies abdomen pain or NVD. Covid vaccine last month--[employer]
[2021-02-18 18:11] LABS: Ethanol (ETOH) < 10 mg/dL
[2021-02-18 18:12] LABS: Alanine Aminotransferase 22 IU/L (<50); Albumin Globulin Ratio 1.1 (1.0-2.8); Alkaline Phosphatase 81 U/L (38-126); Aspartate Aminotransferase 43 IU/L (17-59); BUN Creatinine Ratio 18.2 (6-22); Bilirubin Total 1.3 mg/dL (0.2-1.3); Blood Urea Nitrogen 10 mg/dL (9-20); Calcium 9.2 mg/dL (8.4-10.2); Carbon Dioxide 26 mmol/L (22-32); Chloride 103 mmol/L (98-107); Estimated Glomerular Filt Rate > 60.0 mL/min (>60); Globulin 3.6 g/dL (1.7-4.1); Glucose 107 mg/dL (70-100); HEMOLYSIS < 15 (0-50); Lactate (Lactic Acid) 0.7 mmol/L (0.7-2.1); Potassium 4.2 mmol/L (3.4-5.1); Sodium 137 mmol/L (137-145); Total Protein 7.6 g/dL (6.3-8.2)
[2021-02-18] MEDS: KETOROLAC 30 MG/ML VIAL 15 MG IV (18:24)
--- NOTE | 2021-02-18 18:24 | ED_ITS ---
HPI - General Adult General Chief complaint: Shortness of Breath/Dyspnea Stated complaint: difficulty breathing Time Seen by Provider: 02/18/21 17:50 Source: patient Mode of arrival: Ambulatory Limitations: no limitations History of Present Illness HPI narrative: 35-year-old gentleman with a history of cirrhosis presents with 24 hours of severe left shoulder upper chest and scapular pain. He states that he was sitting in a chair yesterday and as he stood up he heard a pop and has had continuing severe pain worse with a deep breath. No fevers, cough, chills. No vomiting diarrhea. He notes that he has of target for an is usually quite active in gets himself into all sorts of ?contorted positions?. Related Data Home Medications Medication Instructions Recorded Confirmed vitamin B complex 1 tab PO DAILY 11/02/18 01/01/21 Previous Rx's Medication Instructions Recorded metoprolol tartrate 50 mg tablet 50 mg PO BID #180 tab 07/16/20 Allergies Allergy/AdvReac Type Severity Reaction Status Date / Time Iodine and Iodide Containing Allergy Intermediate Hives Verified 02/18/21 17:32 Produc Review of Systems Review of Systems Narrative: Remainder of complete review of systems is otherwise unremarkable except for that included in the HPI. Patient History Medical History Alcoholic hepatitis with ascites Anemia GERD (gastroesophageal reflux disease) (Unknown) H/O tinnitus (Unknown) Heart murmur Hypertension (Unknown) Irritable bowel syndrome (Unknown) Liver disease (Unknown) Perforated tympanic membrane of both ears on examination Substance abuse (Unknown) Surgical History H/O left wrist surgery History of colonoscopy History of esophagogastroduodenoscopy (EGD) Family History Father Liver cancer Mother Breast cancer Unknown Alcoholism Social History Smoking Status: Never smoker second hand exposure: No alcohol intake: former (stopped drinking in 11/2019) substance use type: does not use Smoking Status: Never smoker alcohol intake frequency: 3 or more drinks per day Alcohol type: hard liquor Substance Use Type: marijuana Exam Narrative Exam Narrative: General: Alert, appropriate, significant distress with pleuritic pain Respiratory: Able to speak in full sentences, no obvious respiratory distress. Lungs are clear to auscultation Left shoulder: No rashes, trauma with full range of motion at the shoulder, mild tenderness at the AC joint without obvious separation. Neurovascularly intact in the left upper extremity. Cardiac exam: Regular rate and rhythm no murmurs Skin: No obvious rashes, warm and dry Neurologic: Grossly intact no obvious asymmetries or abnormalities Psych: appropriate insight and affect, cooperative Initial Vital Signs Initial Vital Signs: Vital Signs Temperature 101.4 F H 02/18/21 17:32 Pulse Rate 103 H 02/18/21 17:32 Respiratory Rate 32 H 02/18/21 17:32 Blood Pressure 147/74 H 02/18/21 17:32 Pulse Oximetry 97 02/18/21 17:32 Course Orders Ordered: Discontinued Medications Sodium Chloride (Normal Saline 0.9%) 1,000 mls @ 1,000 mls/hr IV BOLUS ONE Stop: 02/18/21 18:49 Last Admin: 02/18/21 18:25 Dose: Not Given Documented by: NELLY Ceftriaxone Sodium/Dextrose (Rocephin) 1 gm in 50 mls @ 100 mls/hr IV NOW ONE Stop: 02/18/21 18:21 Last Admin: 02/18/21 18:25 Dose: Not Given Documented by: NELLY Ketorolac Tromethamine (Ketorolac 30 Mg/Ml Vial) 15 mg IV NOW ONE Stop: 02/18/21 18:16 Last Admin: 02/18/21 18:24 Dose: 15 mg Documented by: NELLY Oxycodone/Acetaminophen (Oxycodone/Acetaminophen 5/325 Tablet) 1 tab PO NOW ONE Stop: 02/18/21 21:53 Last Admin: 02/18/21 22:06 Dose: 1 tab Documented by: STAR Oxycodone/Acetaminophen (Oxycodone/Apap 5/325 Prepack) 1 bottle MISC SEEINSTR ONE Stop: 02/18/21 21:53 Last Admin: 02/18/21 22:05 Dose: 1 bottle Documented by: [email or web address] Vital Signs Vital signs: Vital Signs - 8 hr 02/18/21 19:30 02/18/21 20:00 02/18/21 20:30 Pulse Rate 97 H 97 H 92 H Respiratory Rate 28 H 26 H 25 H Blood Pressure 149/65 H 149/64 H 150/65 H Pulse Oximetry 93 94 94 02/18/21 21:00 02/18/21 22:07 Pulse Rate 91 H 93 H Respiratory Rate 27 H 18 Blood Pressure 144/63 H 145/96 H Pulse Oximetry 95 98 Medical Decision Making Medical Records Medical records reviewed: Yes I reviewed the patient's medical records. Lab Data Lab results reviewed: Yes I reviewed the patient's lab results. Result diagrams: 02/18/21 17:45 02/18/21 17:45 Labs: Lab Results 02/18/21 02/18/21 02/18/21 Range/Units 17:45 17:45 17:45 WBC 6.5 (4.5-11.0) X10^3/uL RBC 4.28 L (4.5-5.9) X10^6/uL Hgb 11.5 L (13.5-17.5) g/dL Hct 34.7 L (41-53) % MCV 81.0 (80-100) fL MCH 26.8 (26-34) PG MCHC 33.1 (30-36) % RDW 20.0 H (11.6-14.8) % Plt Count 102 L (150-400) X10^3/uL Neut % (Auto) 62.8 (50-75) % Lymph % (Auto) 20.7 L (25-40) % Morgan % (Auto) 15.0 H (3-14) % Eos % (Auto) 1.0 L (2-4) % Baso % (Auto) 0.5 (0-2) % Neut # (Auto) 4100 (7810-4902) /uL Lymph # (Auto) 1300 (5360-0750) /uL Morgan # (Auto) 1000 H (0-900) /uL Eos # (Auto) 100 (0-450) /uL Baso # (Auto) 0 (0-100) /uL Sodium 137 (137-145) mmol/L Potassium 4.2 (3.4-5.1) mmol/L Chloride 103 (98-107) mmol/L Carbon Dioxide 26 (22-32) mmol/L BUN 10 (9-20) mg/dL Creatinine 0.55 L (0.66-1.25) mg/dL Estimated GFR > 60.0 (>60) mL/min BUN/Creatinine Ratio 18.2 (6-22) Glucose 107 H (70-100) mg/dL Lactate 0.7 (0.7-2.1) mmol/L Calcium 9.2 (8.4-10.2) mg/dL Total Bilirubin 1.3 (0.2-1.3) mg/dL AST 43 (17-59) IU/L ALT 22 (<50) IU/L Alkaline Phosphatase 81 (38-126) U/L Total Protein 7.6 (6.3-8.2) g/dL Albumin 4.0 (3.5-5.0) g/dL Globulin 3.6 (1.7-4.1) g/dL Albumin/Globulin Ratio 1.1 (1.0-2.8) Procalcitonin (<0.5) ng/mL Ethyl Alcohol ( - 10) mg/dL 02/18/21 02/18/21 Range/Units 17:45 17:45 WBC (4.5-11.0) X10^3/uL RBC (4.5-5.9) X10^6/uL Hgb (13.5-17.5) g/dL Hct (41-53) % MCV (80-100) fL MCH (26-34) PG MCHC (30-36) % RDW (11.6-14.8) % Plt Count (150-400) X10^3/uL Neut % (Auto) (50-75) % Lymph % (Auto) (25-40) % Morgan % (Auto) (3-14) % Eos % (Auto) (2-4) % Baso % (Auto) (0-2) % Neut # (Auto) (3276-3239) /uL Lymph # (Auto) (2546-9642) /uL Morgan # (Auto) (0-900) /uL Eos # (Auto) (0-450) /uL Baso # (Auto) (0-100) /uL Sodium (137-145) mmol/L Potassium (3.4-5.1) mmol/L Chloride (98-107) mmol/L Carbon Dioxide (22-32) mmol/L BUN (9-20) mg/dL Creatinine (0.66-1.25) mg/dL Estimated GFR (>60) mL/min BUN/Creatinine Ratio (6-22) Glucose (70-100) mg/dL Lactate (0.7-2.1) mmol/L Calcium (8.4-10.2) mg/dL Total Bilirubin (0.2-1.3) mg/dL AST (17-59) IU/L ALT (<50) IU/L Alkaline Phosphatase (38-126) U/L Total Protein (6.3-8.2) g/dL Albumin (3.5-5.0) g/dL Globulin (1.7-4.1) g/dL Albumin/Globulin Ratio (1.0-2.8) Procalcitonin 0.15 (<0.5) ng/mL Ethyl Alcohol < 10 ( - 10) mg/dL Imaging Data Chest x-ray: Radiologist's Impression: FINDINGS: Surgical changes and devices: None. Lungs and pleura: No pleural effusions or pneumothorax. Low lung volumes and scattered atelectasis. Mediastinum: Mediastinal contours appear normal. Heart size is normal. Bones and chest wall: No suspicious bony lesions. Overlying soft tissues appear unremarkable. IMPRESSION: Low lung volumes and scattered atelectasis Dictated by: Robert Vasquez M.D. on 02/18/2021 at 19:12 MDM Narrative Medical decision making narrative: 35-year-old gentleman presents with acute left shoulder and left upper chest acute pleuritic and positional pain. No obvious abnormalities appreciated on blood work, clinical exam or imaging. Significantly improved after IV Toradol. Uncertain etiology but at this point I believe that nonsteroidals to deal with the acute pain is up appropriate and have asked him to follow-up if pain continues for more than a couple of days. No evidence of acute coronary syndrome, pneumothorax, pneumonia, dislocation or fractures. He is safe for home discharge Discharge Plan Departure Patient Disposition: Home Clinical Impression: Pleuritic pain Left shoulder pain Qualifiers: Chronicity: acute Qualified Code(s): M25.512 - Pain in left shoulder Instructions: DI for Pleurisy Activity Restrictions/Additional Instructions: Thank you for coming in today You are not having heart attack, you do not have a collapsed lung, there is no obvious bony damage to your shoulder or collarbone. I do not see any signs of active infection. I suspect that the severe pain your having is all musculoskeletal with a si gnificant pleuritic component(inflammation around your lung that makes it hurt to breathe) Using 400 mg of ibuprofen (2 [id number] pills) and 1 Tylenol every 6 hours can be very helpful in controlling pain. For severe pain to ibuprofen and 1 Percocet can be used. I have given you a very brief supply to use over the next 1-2 nights. Please follow-up with your primary care physician if you continue to have issues. I hope you heal quickly Prescriptions: No Action vitamin B complex tablet 1 tab PO DAILY RF: 0 metoprolol tartrate 50 mg tablet 50 mg PO BID Qty: 180 RF: 1 Referrals: Chavez Solis, [Primary Care Provider] -
[2021-02-18 18:28] LABS: Procalcitonin 0.15 ng/mL (<0.5)
[2021-02-18] MEDS: OXYCODONE/APAP 5/325 PREPACK 1 BOTTLE MISC (22:05)
[2021-02-18] MEDS: OXYCODONE/ACETAMINOPHEN 5/325 TABLET 1 TAB PO (22:06)
== END 2021-02-18 22:11 | disposition home or self-care (01) ==
PROVIDERS: Emergency Medicine; Emergency Provider Emergency Medicine; Family Provider Physician Assistant; PCP Family Medicine
DX: R07.81 Pleurodynia (principal); M25.512 Pain in left shoulder; R06.02 Shortness of breath
CPT/HCPCS: 36415; 71045; 80053; 80320; 83605; 84145; 85025; 87040; 93005; 93010; 96374; 99284; J1885

== ENCOUNTER 2021-02-20 02:55 | Inpatient (IN) | payer OTHER, SELFPAY ==
[2021-02-20] VITALS (15 sets, daily range): BP systolic 123–157; BP diastolic 58–76; PULSE 72–90; RESP 16–32; TEMP 36.9–38.1; O2SAT 90–96; BMI 30.8
--- NOTE | 2021-02-20 03:04 | DI.RAD.S_ITS ---
PROCEDURE: XR CHEST 1V INDICATIONS: Chest pain/shortness of breath TECHNIQUE: One view of the chest was acquired. COMPARISON: [facility], CR, XR CHEST 1V, 02/18/2021, 18:47. FINDINGS: Surgical changes and devices: None. Lungs and pleura: Trace left-sided pleural fluid collection. Increased opacification noted in left lung base.. Mediastinum: Mediastinal contours appear normal. Heart size is normal. Bones and chest wall: No suspicious bony lesions. Overlying soft tissues appear unremarkable. IMPRESSION: Trace left-sided pleural fluid collection and left basilar increased opacification concerning for pneumonia. Dictated by: Shante Powell MD, PhD on 02/20/2021 at 8:44 Approved by: Shante Powell MD, PhD on 02/20/2021 at 8:44
[2021-02-20] MEDS: KETOROLAC 30 MG/ML VIAL IV (03:15)
--- NOTE | 2021-02-20 03:16 | ED_ITS ---
HPI - Chest Pain General Chief Complaint: Chest Pain Stated Complaint: sob Time Seen by Provider: 02/20/21 02:56 Source: patient Mode of arrival: Ambulatory Limitations: no limitations History of Present Illness HPI narrative: Patient is a 35 year male comes in the emergency department today for shortness of breath, being able to take a deep breath, left shoulder pain. States he feels like he needs to cough but can not because he can take a deep breath. Was seen here in the emergency department a couple days ago for similar symptoms. Was determined that his symptoms were musculoskeletal and was discharged home after he felt better with Toradol. He states since that time his symptoms have worsened. Denies any fevers. No recent travel. No lower extremity swelling. His having some chest discomfort but is related to breathing. No trauma. Related Data Home Medications Medication Instructions Recorded Confirmed vitamin B complex 1 tab PO DAILY 11/02/18 01/01/21 Previous Rx's Medication Instructions Recorded metoprolol tartrate 50 mg tablet 50 mg PO BID #180 tab 07/16/20 Allergies Allergy/AdvReac Type Severity Reaction Status Date / Time Iodine and Iodide Containing Allergy Intermediate Hives Verified 02/20/21 03:04 Produc Review of Systems Constitutional Constitutional: Reports fatigue and Reports fever(s) Cardiovascular Cardiovascular: Reports chest pain (With breathing) and Reports dyspnea Respiratory Respiratory: Reports cough, Reports pain on inspiration, Reports pain with cough and Reports dyspnea Gastrointestinal Gastrointestinal: Reports system reviewed and no additional complaints, except a s documented, Denies abdominal pain, Denies nausea and Denies vomiting Genitourinary Genitourinary: Reports system reviewed and no additional complaints, except as documented Musculoskeletal Musculoskeletal: Denies back pain Comments: Left shoulder pain Integumentary/Breasts Skin/Breast: Reports system reviewed and no additional complaints, except as documented Neurologic Neurologic: Reports system reviewed and no additional complaints, except as documented Psychiatric Psychiatric: Reports system reviewed and no additional complaints, except as documented Endocrine Endocrine: Reports system reviewed and no additional complaints, except as documented and Reports fatigue Hematologic/Lymphatic On Anticoagulants: No Allergic/Immunologic Allergic/Immunologic: Reports system reviewed and no additional complaints, except as documented Patient History Medical History Alcoholic hepatitis with ascites Anemia GERD (gastroesophageal reflux disease) (Unknown) H/O tinnitus (Unknown) Heart murmur Hypertension (Unknown) Irritable bowel syndrome (Unknown) Liver disease (Unknown) Perforated tympanic membrane of both ears on examination Substance abuse (Unknown) Surgical History H/O left wrist surgery History of colonoscopy History of esophagogastroduodenoscopy (EGD) Family History Father Liver cancer Mother Breast cancer Unknown Alcoholism Social History Smoking Status: Never smoker second hand exposure: No alcohol intake: former (stopped drinking in 11/2019) substance use type: does not use Smoking Status: Never smoker alcohol intake frequency: 3 or more drinks per day Alcohol type: hard liquor Substance Use Type: marijuana Exam Initial Vital Signs Initial Vital Signs: Vital Signs Temperature 100.4 F H 02/20/21 03:05 Pulse Rate 82 02/20/21 03:05 Respiratory Rate 32 H 02/20/21 03:05 Blood Pressure 157/73 H 02/20/21 03:05 Pulse Oximetry 90 L 02/20/21 03:05 Const General: cooperative and No comfortable (Uncomfortable) Limitations: mental status not altered HENMT Head: normal to inspection and normocephalic Chest Chest: No tenderness Resp Effort & Inspection: tachypneic Auscultation: clear to auscultation bilaterally and diminished lung sounds Cardio Rate: tachycardic Rhythm: regular rhythm GI Inspection: non-distended Palpation: soft Back/Spine/Pelvis Back: No CVA tenderness Cervical Spine: No cervical spinal tenderness Skin Lesions: no lesions Rashes: no rashes Neuro General: patient alert and patient awake Cognition: normal cognition Speech: speech normal Extrem General: normal to inspection and capillary refill normal Psych Appearance: grossly normal and well kempt Scores CURB-65 Confusion: No BUN >19mg/dL (>7mmol/L): No Respiratory rate greater or equal to 30: Yes SBP <90mmHg or DBP less or equal to 60mmHg: No Age 65 or Older: No CURB-65 Total: 1 Score 0-1 Outpatient care, Score 2 Inpt vs. Obs, Score 3 or over Inpt admit with ICU for score of 4-5 GCS Shelley coma scale eye opening: Spontaneous Jamaal coma scale verbal response: Orientated Jamaal coma scale motor response: Obey commands Jamaal coma scale total score: 15 Course Orders Ordered: ED Orders 02/20/21 03:04 XR chest 1V Stat EKG-12 Lead Stat 02/20/21 03:13 Complete Blood Count AUTO DIFF Stat Comprehensive Metabolic Panel Stat D Dimer Stat Lipase Stat Procalcitonin Stat Troponin & CK Cardiac Panel Stat 02/20/21 03:15 Lactate (Lactic Acid) Stat 02/20/21 03:30 COVID19 -Nasal swab/Pre-Proc Stat 02/20/21 03:54 Blood Culture Stat 02/20/21 04:24 CT angio chest PE protocol Stat 02/20/21 05:25 COVID19 - ADMIT (ASSISTANT DIRECTOR OF NURSING swab/PCR) Stat Respiratory Panel (Film Array) Stat Sodium Chloride (Normal Saline 0.9%) 1,000 mls @ 125 mls/hr IV CONT ANDRE Last Admin: 02/20/21 06:41 Dose: 125 mls/hr Documented by: Discontinued Medications Diphenhydramine HCl (Diphenhydramine 50 Mg/Ml Vial) 25 mg IV NOW ONE Stop: 02/20/21 04:30 Last Admin: 02/20/21 04:39 Dose: 25 mg Documented by: [email or web address] Sodium Chloride (Normal Saline 0.9%) 1,000 mls @ 1,000 mls/hr IV BOLUS ONE Stop: 02/20/21 04:32 Last Admin: 02/20/21 04:13 Dose: 1,000 mls/hr Documented by: RANDA Azithromycin 500 mg/ Dextrose 250 mls @ 250 mls/hr IV NOW ONE Stop: 02/20/21 04:23 Last Infusion: 02/20/21 06:16 Dose: 0 mls/hr Documented by: Admin: 02/20/21 04:36 Dose: 250 mls/hr Documented by: RANDA Ketorolac Tromethamine (Ketorolac 30 Mg/Ml Vial) 30 mg IV NOW ONE Stop: 02/20/21 03:04 Last Admin: 02/20/21 03:15 Dose: 30 mg Documented by: [email or web address] Methylprednisolone (Methylprednisolone 125 Mg/2 Ml Vial) 125 mg IV NOW ONE Stop: 02/20/21 04:30 Last Admin: 02/20/21 04:39 Dose: 125 mg Documented by: [email or web address] Vital Signs Vital signs: Vital Signs - 8 hr 02/20/21 03:05 02/20/21 05:05 02/20/21 05:30 Temperature 100.4 F H Pulse Rate 82 72 72 Respiratory Rate 32 H 19 19 Blood Pressure 157/73 H 141/62 H 123/58 L Pulse Oximetry 90 L 96 96 02/20/21 06:30 Temperature Pulse Rate 80 Respiratory Rate 16 Blood Pressure 141/67 H Pulse Oximetry 95 MDM - Chest Pain Medical Records Data Attestation: I reviewed the patient's medical records. Lab Data Attestation: I reviewed the patient's lab results. Result diagrams: 02/20/21 03:13 02/20/21 03:13 Labs: Lab Results 02/20/21 02/20/21 02/20/21 Range/Units 03:13 03:13 03:13 WBC 12.5 H D (4.5-11.0) X10^3/uL RBC 4.37 L (4.5-5.9) X10^6/uL Hgb 11.7 L (13.5-17.5) g/dL Hct 35.9 L (41-53) % MCV 82.0 (80-100) fL MCH 26.7 (26-34) PG MCHC 32.5 (30-36) % RDW 22.5 H (11.6-14.8) % Plt Count 139 L (150-400) X10^3/uL Neut % (Auto) Not Reportable Lymph % (Auto) Not Reportable Door % (Auto) Not Reportable Eos % (Auto) Not Reportable Baso % (Auto) Not Reportable Lymph # (Auto) Not Reportable Door # (Auto) Not Reportable Baso # (Auto) Not Reportable Total Counted 100 Seg Neutrophils % 70.0 (38-70) % Lymphocytes % (Manual) 18.0 L (25-45) % Atypical Lymphs % 3.0 H ( - 0) % Monocytes % (Manual) 6.0 (2-11) % Eosinophils % (Manual) 1.0 L (2-4) % Basophils % (Manual) 1.0 (0-1) % Myelocytes % 1.0 H (-0) % Neutrophils # (Manual) 8750 H (5554-6836) /uL Smudge Cells 1+ H RBC Morphology See below Anisocytosis 2+ H D-Dimer 709 H (<230) ng/mL Sodium 134 L (137-145) mmol/L Potassium 4.5 (3.4-5.1) mmol/L Chloride 101 (98-107) mmol/L Carbon Dioxide 26 (22-32) mmol/L BUN 13 (9-20) mg/dL Creatinine 0.60 L (0.66-1.25) mg/dL Estimated GFR > 60.0 (>60) mL/min BUN/Creatinine Ratio 21.7 (6-22) Glucose 111 H (70-100) mg/dL Lactate (0.7-2.1) mmol/L Calcium 9.1 (8.4-10.2) mg/dL Total Bilirubin 2.6 H (0.2-1.3) mg/dL AST 40 (17-59) IU/L ALT 21 (<50) IU/L Alkaline Phosphatase 82 (38-126) U/L Total Creatine Kinase (55-170) U/L CK-MB (CK-2) CK-MB (CK-2) Rel Index Troponin I (0.01-0.034) ng/mL Total Protein 7.8 (6.3-8.2) g/dL Albumin 4.0 (3.5-5.0) g/dL Globulin 3.8 (1.7-4.1) g/dL Albumin/Globulin Ratio 1.1 (1.0-2.8) Lipase (23-300) U/L Procalcitonin (<0.5) ng/mL SARS-CoV-2 (PCR) (Negative) 02/20/21 02/20/21 02/20/21 Range/Units 03:13 03:15 03:30 WBC (4.5-11.0) X10^3/uL RBC (4.5-5.9) X10^6/uL Hgb (13.5-17.5) g/dL Hct (41-53) % MCV (80-100) fL MCH (26-34) PG MCHC (30-36) % RDW (11.6-14.8) % Plt Count (150-400) X10^3/uL Neut % (Auto) Lymph % (Auto) Door % (Auto) Eos % (Auto) Baso % (Auto) Lymph # (Auto) Door # (Auto) Baso # (Auto) Total Counted Seg Neutrophils % (38-70) % Lymphocytes % (Manual) (25-45) % Atypical Lymphs % ( - 0) % Monocytes % (Manual) (2-11) % Eosinophils % (Manual) (2-4) % Basophils % (Manual) (0-1) % Myelocytes % (-0) % Neutrophils # (Manual) (6405-9640) /uL Smudge Cells RBC Morphology Anisocytosis D-Dimer (<230) ng/mL Sodium (137-145) mmol/L Potassium (3.4-5.1) mmol/L Chloride (98-107) mmol/L Carbon Dioxide (22-32) mmol/L BUN (9-20) mg/dL Creatinine (0.66-1.25) mg/dL Estimated GFR (>60) mL/min BUN/Creatinine Ratio (6-22) Glucose (70-100) mg/dL Lactate 0.8 (0.7-2.1) mmol/L Calcium (8.4-10.2) mg/dL Total Bilirubin (0.2-1.3) mg/dL AST (17-59) IU/L ALT (<50) IU/L Alkaline Phosphatase (38-126) U/L Total Creatine Kinase 44 L (55-170) U/L CK-MB (CK-2) TNP CK-MB (CK-2) Rel Index TNP Troponin I < 0.012 (0.01-0.034) ng/mL Total Protein (6.3-8.2) g/dL Albumin (3.5-5.0) g/dL Globulin (1.7-4.1) g/dL Albumin/Globulin Ratio (1.0-2.8) Lipase 78 (23-300) U/L Procalcitonin 0.47 (<0.5) ng/mL SARS-CoV-2 (PCR) Negative (Negative) Imaging Data Chest x-ray: Radiologist's Impression: Left lower lobe consolidation associated with a small effusion. Findings likely related to pneumonia and associated parapneumonic effusion. Probable mild atelectasis at the right lung base. CT scan - chest: Radiologist's Impression: Suboptimal opacification of the pulmonary arter ies, no central pulmonary emboli Small left pleural effusion with bilateral lower lobe airspace disease ECG Data Attestation: I personally reviewed and interpreted this ECG as follows: Prior ECG tracings: not available for review Interpretation: Sinus rhythm Ventricular rate of 80 Normal axis Normal QRS Normal QTC No ST T wave changes MDM Narrative Medical decision making narrative: Reviewed patient's prior emergency department visit according to the note does felt that his symptoms were musculoskeletal related. He did admit that the Toradol that he was given helped his symptoms over since that time the been worsening. Upon arrival patient is febrile, tachypneic, hypoxic to the upper 80s which improved with oxygen by nasal cannula. He now has a leukocytosis the left shift. Procalcitonin is 0.03 ng/mL short of being positive. His lactate was unremarkable. Was never hypotensive. Was given fluids but will hold on the 30 cc/kilogram based on this. Chest x-ray is concerning for left-sided pneumonia. Initially decided hold on any antibiotics despite his vital signs and labs until his rapid COVID resulted. This was subsequently negative so he was given IV dose of azithromycin for community-acquired pneumonia. Did order a CT scan of the chest for further evaluation of potential other etiology. This was a suboptimal study however there is no signs of pulmonary embolism that can be seen with what was provided to the radiologist. I do feel that his symptoms are more related to pneumonia given his fever, chest x-ray findings, procalcitonin, leukocytosis. He does have a history of cirrhosis in his bilirubin is slightly elevated however his LFTs are normal. I suspect his left shoulder pain is secondary to irritation from the pneumonia seen on the chest x-ray irritating his diaphragm and this is referred pain. Patient does have an oxygen requirement to keep his saturations above 90. Because of this patient will need to be admitted for further evaluation treatment. I did discuss the case with the hospitalist who will admit. Did discuss the case with the patient who expressed understanding and agreement. Discharge Plan Departure Patient Disposition: Admitted As Inpatient Clinical Impression: Pneumonia, Hypoxia Admit Date/Time: 02/20/21 06:56 Admit Provider: Asher Castañeda
[2021-02-20 03:31] LABS: Hematocrit 35.9 % (41-53); Hemoglobin 11.7 g/dL (13.5-17.5); Mean Corpuscular HGB Conc 32.5 % (30-36); Mean Corpuscular Hemoglobin 26.7 PG (26-34); Platelet Count 139 X10^3/uL (150-400); Red Blood Cell Count 4.37 X10^6/uL (4.5-5.9); Red Cell Distribution Width 22.5 % (11.6-14.8); White Blood Cell Count 12.5 X10^3/uL (4.5-11.0)
[2021-02-20 03:32] LABS: Add Manual Diff / Slide Review YES
[2021-02-20 03:36] LABS: Alanine Aminotransferase 21 IU/L (<50); Albumin Globulin Ratio 1.1 (1.0-2.8); Alkaline Phosphatase 82 U/L (38-126); Aspartate Aminotransferase 40 IU/L (17-59); BUN Creatinine Ratio 21.7 (6-22); Bilirubin Total 2.6 mg/dL (0.2-1.3); Blood Urea Nitrogen 13 mg/dL (9-20); Calcium 9.1 mg/dL (8.4-10.2); Carbon Dioxide 26 mmol/L (22-32); Chloride 101 mmol/L (98-107); Creatine Kinase 44 U/L (55-170); Estimated Glomerular Filt Rate > 60.0 mL/min (>60); Globulin 3.8 g/dL (1.7-4.1); Glucose 111 mg/dL (70-100); HEMOLYSIS < 15 (0-50); Lipase 78 U/L (23-300); Potassium 4.5 mmol/L (3.4-5.1); Sodium 134 mmol/L (137-145); Total Protein 7.8 g/dL (6.3-8.2)
[2021-02-20 03:43] LABS: D Dimer 709 ng/mL (<230)
--- NOTE | 2021-02-20 03:47 | RT ---
Pt desat to 88% with good pleth on monitor and pt is SOB. At 0305, placed pt on 3 LPM NC, SpO2 increased to 94%. RN and aware.
[2021-02-20 03:48] LABS: Troponin I < 0.012 ng/mL (0.01-0.034)
[2021-02-20 03:50] LABS: Lactate (Lactic Acid) 0.8 mmol/L (0.7-2.1)
[2021-02-20 03:53] LABS: Procalcitonin 0.47 ng/mL (<0.5)
[2021-02-20] MEDS: SODIUM CHLORIDE 0.9% 1,000 ML 1000 ML IV (04:13)
[2021-02-20 04:18] LABS: COVID19 -Nasal RAPID Negative (Negative)
--- NOTE | 2021-02-20 04:24 | DI.CT.S_ITS ---
PROCEDURE: CT ANGIO CHEST PE PROTOCOL INDICATIONS: Chest pain, shortness of breath, tachycardia TECHNIQUE: After the administration of intravenous contrast, 2 mm thick sections acquired from the pulmonary apices to the posterior costophrenic angles. 3-dimensional maximum intensity projection (MIP) coronal and sagittal reformats were then acquired through the thorax. For radiation dose reduction, the following was used: automated exposure control, adjustment of mA and/or kV according to patient size. COMPARISON: None. FINDINGS: Image quality: Diagnostic sensitivity of study diminished secondary to suboptimal contrast opacification of the pulmonary arteries. Pulmonary arteries: Pulmonary arteries are normal in size, and demonstrate no intraluminal filling defects to suggest large central pulmonary embolism. Lungs and pleura: Small left pleural effusion. Consolidation noted in the lung bases bilaterally consistent with atelectasis, aspiration or pneumonia. No pneumothorax. Central and peripheral airways are patent. Mediastinum: Heart size is normal, without pericardial effusion. No mediastinal or hilar adenopathy. Thoracic aorta is normal in caliber and enhancement. Esophagus is normal in caliber, without hiatal hernia. Bones and chest wall: No suspicious bony lesions. Ribs and thoracic spine appear intact throughout. Thyroid gland is normal where visualized. No axillary or supraclavicular adenopathy. Abdomen: Visualized spleen is enlarged. Visualized upper abdominal solid organs otherwise appear normal in the early arterial phase of enhancement. IMPRESSION: 1. Study limited secondary to suboptimal contrast opacification of the pulmonary arteries. 2. No large central pulmonary embolus. Moderate-sized and small pulmonary emboli are not completely excluded by this study. 3. Bibasilar consolidation which could represent atelectasis, aspiration or pneumonia. 4. Splenomegaly. Dictated by: Shante Powell MD, PhD on 02/20/2021 at 7:11 Approved by: Shante Powell MD, PhD on 02/20/2021 at 7:15
[2021-02-20] MEDS: AZITHROMYCIN 500 MG in DEXTROSE 5% IN WATER 250 ML IV (04:36)
[2021-02-20] MEDS: diphenhydrAMINE 50 MG/ML VIAL 25 MG IV (04:39)
[2021-02-20] MEDS: methylPREDNISolone 125 MG/2 ML VIAL IV (04:39)
[2021-02-20 06:38] LABS: Neutrophils Absolute Manual 8750 /uL (3000-5900); Smudge Cells 1+; Total Cells Counted 100
[2021-02-20 06:39] LABS: Anisocytosis 2+
[2021-02-20] MEDS: SODIUM CHLORIDE 0.9% 1,000 ML 125 ML IV (06:41)
[2021-02-20 07:09] LABS: COVID19 - ADMIT (NP swab/PCR) Negative (Negative)
[2021-02-20 07:11] LABS: Adenovirus Not Detected (Not Detect); B. parapertussis Not Detected (Not Detecte); Bordetella pertussis Not Detected (Not Detecte); Chlamydophila pneumoniae Not Detected (Not Detect); Coronavirus 229E Not Detected (Not Detect); Coronavirus HKU1 Not Detected (Not Detect); Coronavirus NL 63 Not Detected (Not Detect); Coronavirus OC43 Not Detected (Not Detect); Human Metapneumovirus Not Detected (Not Detect); Human Rhinovirus/Enterovirus Not Detected (Not Detect); Influenza A Not Detected (Not Detect); Influenza B Not Detected (Not Detect); Mycoplasma pneumoniae Not Detected (Not Detect); Parainfluenza Virus 1 Not Detected (Not Detect); Parainfluenza Virus 2 Not Detected (Not Detect); Parainfluenza Virus 3 Not Detected (Not Detect); Parainfluenza Virus 4 Not Detected (Not Detect); Respiratory Syncytial Virus Not Detected (Not Detect); SARS- CoV-2 Not Detected (Not Detecte)
[2021-02-20] MEDS: CEFTRIAXONE 1 GM/50 ML FROZ.PIGGY IV (08:05)
[2021-02-20] MEDS: METOPROLOL IR 50 MG TABLET PO ×2 (08:29→20:06)
--- NOTE | 2021-02-20 08:41 | PC.NURSE ---
Admit note: Patient admitted to room 204, received from ED on O2 at 2L via NC, sats 94%. SOB at rest, speaking in short sentences, HOB elevated. IVF and IV abx initiated on arrival. SCDs placed, bed alarm, call light within reach. Oriented to room, environment, and plan of care. Call Leyda, reviewed visiting policy, medications, and plan.
--- NOTE | 2021-02-20 09:38 | P.HP_ITS ---
History of Present Illness History of Present Illness Date Patient Seen: 02/20/21 Time Patient Seen: 09:38 Chief complaint: sob Narrative: This is a 35-year-old male with a past medical history of alcoholic cirrhosis, chronic anemia who presented to the emergency room today for worsening shortness of breath and left-sided chest pain. Patient was in the emergency room a few days ago and was diagnosed with musculoskeletal pain and was discharged home after he felt better with some Toradol. Since then his symptoms have continued to worsen. He denies any fevers, or chills. But he has had a pleuritic left chest pain, which is in the lower chest, lateral wall, as well as superiorly that hurts with every breath and he feels that he cannot take a big enough breath in without pain. He denies any recent travel or sick contacts. He denies any dyspnea on exertion or chest pain, lower extremity edema. He denies any falls or trauma to his chest area. In the emergency room yesterday evening the patient was febrile to 101.4, initially tachypneic in the upper 20s to low 30s, up to 90% on 2 L initially, however this morning he is improved and saturating at 92% on room air. Initial laboratory evaluation showed a mild leukocytosis with a WBC of 12.5, stable hemoglobin at 11.7, and slight increase in his platelet count to 139. D-dimer was 709. Chemistry panel was notable for a total bilirubin of 2.6 slightly up from 1.3 a few days ago. There are no significant transaminase elevations. Troponin was negative. Procalcitonin was indeterminate at 0.47. COVID-19 testing was negative. Full respiratory panel was negative. Chest x-ray showed a trace pleural effusion on the left Patient History Medical History Alcoholic hepatitis with ascites Anemia GERD (gastroesophageal reflux disease) (Unknown) H/O tinnitus (Unknown) Heart murmur Hypertension (Unknown) Irritable bowel syndrome (Unknown) Liver cirrhosis Liver disease (Unknown) Perforated tympanic membrane of both ears on examination Substance abuse (Unknown) Surgical History H/O left wrist surgery History of colonoscopy History of esophagogastroduodenoscopy (EGD) Family & Social History Family History Father Liver cancer Mother Breast cancer Unknown Alcoholism Social History: household members spouse Prior Living Arrangements House Safety & Behavioral: Feels Safe in Current Yes Environment Been Physically Hurt or No Threatened By a Person Tobacco & Substance use: Smoking Status Never smoker alcohol intake former alcohol intake frequency 3 or more drinks per day Substance Use Type marijuana Meds Home Medications and Allergies Home Medications Medication Instructions Recorded Confirmed Type vitamin B complex 1 tab PO DAILY 11/02/18 02/20/21 History metoprolol tartrate 50 mg tablet 50 mg PO BID #180 tab 07/16/20 02/20/21 Rx Allergies Allergy/AdvReac Type Severity Reaction Status Date / Time Iodine and Iodide Containing Allergy Intermediate Hives Verified 02/20/21 03:04 Produc Review of Systems Review of Systems Narrative: All other systems reviewed with the patient and are negative unless otherwise stated. Exam Vital Signs (past 8 hours): - 02/20/21 03:05 02/20/21 05:05 02/20/21 05:30 Temperature 100.4 F H Pulse Rate 82 72 72 Respiratory Rate 32 H 19 19 Blood Pressure 157/73 H 141/62 H 123/58 L Pulse Oximetry 90 L 96 96 02/20/21 06:30 02/20/21 07:33 02/20/21 08:26 Temperature 98.5 F 98.5 F Pulse Rate 80 75 Respiratory Rate 16 20 Blood Pressure 141/67 H 139/67 Pulse Oximetry 95 02/20/21 09:33 Temperature Pulse Rate 77 Respiratory Rate 16 Blood Pressure Pulse Oximetry 92 Oxygen Delivery Method Room Air Oxygen Flow Rate 0 Narrative Exam Narrative: GENERAL APPEARANCE: Well developed, well nourished, male but appears acutely ill and mildly tachypneic SKIN: Inspection of the skin reveals no rashes, ulcerations or petechiae. Mild jaundice HEENT: Normocephalic atraumatic, extraocular muscles are intact, oropharynx is clear and mucous membranes are dry, poor dentition, neck is supple without adenopathy NECK: Supple and symmetric. There was no thyroid enlargement, and no tenderness CHEST: Normal AP diameter and normal contour without any kyphoscoliosis. Nontender. LUNGS: Auscultation of the lungs revealed no obvious wheezes, rhonchi, or rales. CARDIOVASCULAR: There was a regular rate and rhythm without any murmurs, gallops, rubs. Peripheral pulses were 2+ and symmetric. ABDOMEN: Soft, nontender, and nondistended MUSCULOSKELETAL: There was no tenderness or effusions noted. Muscle strength and tone were normal. EXTREMITIES: No cyanosis, clubbing or edema. NEUROLOGIC: Alert and oriented x 3. Normal affect. Strength is +5/5 in the Upper Extremities and Lower Extremities Bilaterally. Objective ECG Impression: Normal sinus rhythm, possible left atrial enlargement. No evidence of acute ischemia. Imaging CT scan - chest: Radiologist's impression: PROCEDURE: CT ANGIO CHEST PE PROTOCOL INDICATIONS: Chest pain, shortness of breath, tachycardia TECHNIQUE: After the administration of intravenous contrast, 2 mm thick sections acquired from the pulmonary apices to the posterior costophrenic angles. 3-dimensional maximum intensity projection (MIP) coronal and sagittal reformats were then acquired through the thorax. For radiation dose reduction, the following was used: automated exposure control, adjustment of mA and/or kV according to patient size. COMPARISON: None. FINDINGS: Image quality: Diagnostic sensitivity of study diminished secondary to suboptimal contrast opacification of the pulmonary arteries. Pulmonary arteries: Pulmonary arteries are normal in size, and demonstrate no intraluminal filling defects to suggest large central pulmonary embolism. Lungs and pleura: Small left pleural effusion. Consolidation noted in the lung bases bilaterally consistent with atelectasis, aspiration or pneumonia. No pneumothorax. Central and peripheral airways are patent. Mediastinum: Heart size is normal, without pericardial effusion. No mediastinal or hilar adenopathy. Thoracic aorta is normal in caliber and enhancement. Esophagus is normal in caliber, without hiatal hernia. Bones and chest wall: No suspicious bony lesions. Ribs and thoracic spine appear intact throughout. Thyroid gland is normal where visualized. No axillary or supra clavicular adenopathy. Abdomen: Visualized spleen is enlarged. Visualized upper abdominal solid organs otherwise appear normal in the early arterial phase of enhancement. IMPRESSION: 1. Study limited secondary to suboptimal contrast opacification of the pulmonary arteries. 2. No large central pulmonary embolus. Moderate-sized and small pulmonary emboli are not completely excluded by this study. 3. Bibasilar consolidation which could represent atelectasis, aspiration or pneumonia. 4. Splenomegaly. Chest x-ray: My impression: Minimal left-sided pleural effusion and probable left pneumonia verses atelectasis Radiologist's impression: PROCEDURE: XR CHEST 1V INDICATIONS: Chest pain/shortness of breath TECHNIQUE: One view of the chest was acquired. COMPARISON: [facility], CR, XR CHEST 1V, 02/18/2021, 18:47. FINDINGS: Surgical changes and devices: None. Lungs and pleura: Trace left-sided pleural fluid collection. Increased opacification noted in left lung base.. Mediastinum: Mediastinal contours appear normal. Heart size is normal. Bones and chest wall: No suspicious bony lesions. Overlying soft tissues appear unremarkable. IMPRESSION: Trace left-sided pleural fluid collection and left basilar increased opacification concerning for pneumonia. Labs Result Diagrams: 02/20/21 03:13 02/20/21 03:13 Labs: Laboratory Results - last 24 hr 02/20/21 02/20/21 02/20/21 03:13 03:13 03:13 WBC 12.5 H D RBC 4.37 L Hgb 11.7 L Hct 35.9 L MCV 82.0 MCH 26.7 MCHC 32.5 RDW 22.5 H Plt Count 139 L Neut % (Auto) Not Reportable Lymph % (Auto) Not Reportable [place] % (Auto) Not Reportable Eos % (Auto) Not Reportable Baso % (Auto) Not Reportable Lymph # (Auto) Not Reportable [place] # (Auto) Not Reportable Baso # (Auto) Not Reportable Total Counted 100 Seg Neutrophils % 70.0 Lymphocytes % (Manual) 18.0 L Atypical Lymphs % 3.0 H Monocytes % (Manual) 6.0 Eosinophils % (Manual) 1.0 L Basophils % (Manual) 1.0 Myelocytes % 1.0 H Neutrophils # (Manual) 8750 H Smudge Cells 1+ H RBC Morphology See below Anisocytosis 2+ H D-Dimer 709 H Sodium 134 L Potassium 4.5 Chloride 101 Carbon Dioxide 26 BUN 13 Creatinine 0.60 L Estimated GFR > 60.0 BUN/Creatinine Ratio 21.7 Glucose 111 H Lactate Calcium 9.1 Total Bilirubin 2.6 H AST 40 ALT 21 Alkaline Phosphatase 82 Total Creatine Kinase CK-MB (CK-2) CK-MB (CK-2) Rel Index Troponin I Total Protein 7.8 Albumin 4.0 Globulin 3.8 Albumin/Globulin Ratio 1.1 Lipase Procalcitonin Chlamy pneumoniae PCR Adenovirus (PCR) B. pertussis DNA (PCR) B.parapertussis DNA PCR Coronavirus OC43 (PCR) Coronavirus HKU1 (PCR) Coronavirus 229E (PCR) SARS-CoV-2 (PCR) Coronavirus NL63 (PCR) Human Metapneumovir PCR Influenza Type A (PCR) Influenza Type B (PCR) M. pneumoniae (PCR) Parainfluenza 1 (PCR) Parainfluenza 2 (PCR) Parainfluenza 3 (PCR) Parainfluenza 4 (PCR) RSV (PCR) Entero/Rhino (PCR) 02/20/21 02/20/21 02/20/21 03:13 03:15 03:30 WBC RBC Hgb Hct MCV MCH MCHC RDW Plt Count Neut % (Auto) Lymph % (Auto) [place] % (Auto) Eos % (Auto) Baso % (Auto) Lymph # (Auto) [place] # (Auto) Baso # (Auto) Total Counted Seg Neutrophils % Lymphocytes % (Manual) Atypical Lymphs % Monocytes % (Manual) Eosinophils % (Manual) Basophils % (Manual) Myelocytes % Neutrophils # (Manual) Smudge Cells RBC Morphology Anisocytosis D-Dimer Sodium Potassium Chloride Carbon Dioxide BUN Creatinine Estimated GFR BUN/Creatinine Ratio Glucose Lactate 0.8 Calcium Total Bilirubin AST ALT Alkaline Phosphatase Total Creatine Kinase 44 L CK-MB (CK-2) TNP CK-MB (CK-2) Rel Index TNP Troponin I < 0.012 Total Protein Albumin Globulin Albumin/Globulin Ratio Lipase 78 Procalcitonin 0.47 Chlamy pneumoniae PCR Adenovirus (PCR) B. pertussis DNA (PCR) B.parapertussis DNA PCR Coronavirus OC43 (PCR) Coronavirus HKU1 (PCR) Coronavirus 229E (PCR) SARS-CoV-2 (PCR) Negative Coronavirus NL63 (PCR) Human Metapneumovir PCR Influenza Type A (PCR) Influenza Type B (PCR) M. pneumoniae (PCR) Parainfluenza 1 (PCR) Parainfluenza 2 (PCR) Parainfluenza 3 (PCR) Parainfluenza 4 (PCR) RSV (PCR) Entero/Rhino (PCR) 02/20/21 02/20/21 05:25 05:25 WBC RBC Hgb Hct MCV MCH MCHC RDW Plt Count Neut % (Auto) Lymph % (Auto) [place] % (Auto) Eos % (Auto) Baso % (Auto) Lymph # (Auto) [place] # (Auto) Baso # (Auto) Total Counted Seg Neutrophils % Lymphocytes % (Manual) Atypical Lymphs % Monocytes % (Manual) Eosinophils % (Manual) Basophils % (Manual) Myelocytes % Neutrophils # (Manual) Smudge Cells RBC Morphology Anisocytosis D-Dimer Sodium Potassium Chloride Carbon Dioxide BUN Creatinine Estimated GFR BUN/Creatinine Ratio Glucose Lactate Calcium Total Bilirubin AST ALT Alkaline Phosphatase Total Creatine Kinase CK-MB (CK-2) CK-MB (CK-2) Rel Index Troponin I Total Protein Albumin Globulin Albumin/Globulin Ratio Lipase Procalcitonin Chlamy pneumoniae PCR Not detected Adenovirus (PCR) Not detected B. pertussis DNA (PCR) Not detected B.parapertussis DNA PCR Not detected Coronavirus OC43 (PCR) Not detected Coronavirus HKU1 (PCR) Not detected Coronavirus 229E (PCR) Not detected SARS-CoV-2 (PCR) Negative Not detected Coronavirus NL63 (PCR) Not detected Human Metapneumovir PCR Not detected Influenza Type A (PCR) Not detected Influenza Type B (PCR) Not detected M. pneumoniae (PCR) Not detected Parainfluenza 1 (PCR) Not detected Parainfluenza 2 (PCR) Not detected Parainfluenza 3 (PCR) Not detected Parainfluenza 4 (PCR) Not detected RSV (PCR) Not detected Entero/Rhino (PCR) Not detected Assessment & Plan Assessment & Plan narrative: This is a 35-year-old male with a past medical history of alcoholic cirrhosis, chronic anemia who presented to the emergency room today for worsening shortness of breath and left-sided chest pain. He is admitted with left-sided bacterial pneumonia with small parapneumonic effusion. 1. Left lower lobe bacterial pneumonia, acute, present on admission - PSI score is 86. - WBC 12.5 up from normal a few days ago, will continue ceftriaxone and azithromycin for CAP. - CT angio with small bilateral consolidations, small left pleural effusion, CXR with small L pleural effusion and L sided pneumonia. - blood cultures from ER 2 days ago negative, Respiratory panel negative. Sputu m cultures ordered. - no longer on O2, did drop to 90% in the ER and was tachypnic to low 30s on ER arrival. Goal O2 > 90%. Continue tylenol and toradol for pain control, Incentive spirometry as well. 2. Small left pleural effusion, likely parapneumonic - not large enough for drainage at this time. If worsening or continued fever, consider repeat imaging to reassess. 3. Alcoholic cirrhosis - has stopped home rifaximin, T bili is slightly up from normal at 2.6 (was 1.3 a few days ago). Will repeat abdominal ultrasound. 4. Chronic anemia - stable anemia with Hg 11.7 today. Continue to monitor. S/p IV iron infusions with hematology as an outpatient. 5. HTN, chronic - can continue home metoprolol 50 mg BID Code: Full Dispo: Admit as inpatient. DVT: Lovenox daily.
--- NOTE | 2021-02-20 11:24 | DI.US.S_ITS ---
PROCEDURE: US ABDOMEN LIMITED INDICATIONS: ELEVATED BILIRUBIN TECHNIQUE: Real-time focused scanning was performed of the abdomen, with image documentation. COMPARISON: [facility], CT, CT ANGIO CHEST PE PROTOCOL, 02/20/2021, 4:59. [facility], CR, XR CHEST 1V, 02/20/2021, 3:07. [facility], CT, CT ABDOMEN WO/W CON, 07/04/2020, 13:32. [facility], US, US ABDOMEN COMPLETE, 05/27/2020, 8:27. FINDINGS: The liver demonstrates mildly prominent size. The liver demonstrates generalized mildly increased echogenicity. This decreases ultrasound sensitivity for detection of hepatic masses. No findings of gallstones or sludge are seen. The gallbladder wall is not thickened, measuring 3 mm or less. A minimal amount of free fluid can be seen medial to the gallbladder. The sonographic Espitia sign is negative. There is no biliary dilatation, the common bile duct measures 5 mm. No significant pancreatic abnormality is seen on these images. IMPRESSION: A minimal amount of free fluid can be seen medial to the gallbladder. No additional gallbladder abnormality is seen. No biliary dilatation, the common bile duct measures 5 mm. Mild fatty liver infiltration. Dictated by: Pineda Anne M.D. on 02/20/2021 at 13:24 Approved by: Pineda Anne M.D. on 02/20/2021 at 13:26
--- NOTE | 2021-02-20 15:05 | PC.NURSE ---
Pt A&O x3, reports fatigued and SOB. VSS, 90% 02 saturation on RA slightly tachypnic RRR 26. LS diminished > L side. Skin jaundiced intact. Unable to expectorate sputum, reports dry cough, and feeling like he is unable to cough. U/S of abdomen completed. Urine sample collected and sent to lab.
[2021-02-20 15:10] LABS: Bacteria Urine None Seen; RBC Urine None Seen (0-5/HPF); WBC Urine None Seen (0-5/HPF)
[2021-02-20 15:13] LABS: Appearance Urine UA CLEAR; Bilirubin Urine UA NEGATIVE (NEGATIVE); Color Urine UA YELLOW; Glucose Urine UA NEGATIVE (Negative); Ketones Urine UA NEGATIVE (NEGATIVE); Leukocyte Esterase Urine UA NEGATIVE (NEGATIVE); Nitrite Urine UA NEGATIVE (Negative); Occult Blood Urine UA NEGATIVE (Negative); Protein Urine UA NEGATIVE (Negative); Urobilinogen Urine UA 0.2 E.U./dL (0.2); pH Urine UA 6.5 (4.5-8.0)
[2021-02-20 15:30] LABS: Culture Indicated Urine Cult Not Indicated
[2021-02-20] MEDS: ACETAMINOPHEN 325 MG TABLET 650 MG PO (19:26)
[2021-02-20] MEDS: SODIUM CHLORIDE 0.9% FLUSH 10 ML IV (20:06)
[2021-02-21] VITALS: O2SAT 93
[2021-02-21 05:51] VITALS: BP 112/55; PULSE 68; RESP 16; TEMP 36.7; O2SAT 96
[2021-02-21 06:26] LABS: Basophils Absolute Auto 0 /uL (0-100); Basophils Percent Auto 0.1 % (0-2); Eosinophils Absolute Auto 0 /uL (0-450); Hematocrit 29.2 % (41-53); Hemoglobin 9.7 g/dL (13.5-17.5); Lymphocytes Absolute Auto 1200 /uL (1100-4500); Lymphocytes Percent Auto 10.6 % (25-40); Mean Corpuscular HGB Conc 33.3 % (30-36); Mean Corpuscular Hemoglobin 27.2 PG (26-34); Mean Corpuscular Volume 81.6 fL (80-100); Monocytes Absolute Auto 1300 /uL (0-900); Monocytes Percent Auto 11.2 % (3-14); Neutrophils Absolute Auto 9100 /uL (1500-7000); Neutrophils Percent Auto 78.1 % (50-75); Platelet Count 107 X10^3/uL (150-400); Red Blood Cell Count 3.58 X10^6/uL (4.5-5.9); Red Cell Distribution Width 22.3 % (11.6-14.8); White Blood Cell Count 11.7 X10^3/uL (4.5-11.0)
[2021-02-21 06:30] LABS: Add Manual Diff / Slide Review SLIDE REVIEW
[2021-02-21 06:52] LABS: Alanine Aminotransferase 17 IU/L (<50); Albumin Globulin Ratio 0.9 (1.0-2.8); Alkaline Phosphatase 57 U/L (38-126); Aspartate Aminotransferase 27 IU/L (17-59); Bilirubin Total 1.5 mg/dL (0.2-1.3); Blood Urea Nitrogen 15 mg/dL (9-20); Calcium 8.5 mg/dL (8.4-10.2); Carbon Dioxide 25 mmol/L (22-32); Chloride 105 mmol/L (98-107); Estimated Glomerular Filt Rate > 60.0 mL/min (>60); Globulin 3.2 g/dL (1.7-4.1); Glucose 120 mg/dL (70-100); HEMOLYSIS < 15 (0-50); Potassium 4.4 mmol/L (3.4-5.1); Sodium 136 mmol/L (137-145); Total Protein 6.2 g/dL (6.3-8.2)
[2021-02-21 06:56] LABS: Anisocytosis 2+
[2021-02-21] MEDS: AZITHROMYCIN 250 MG TABLET 500 MG PO ×2 (07:01→09:12)
[2021-02-21] MEDS: SODIUM CHLORIDE 0.9% FLUSH 10 ML IV ×2 (07:02→09:13)
[2021-02-21] MEDS: CEFTRIAXONE 1 GM/50 ML FROZ.PIGGY IV (07:02)
[2021-02-21 07:09] LABS: Procalcitonin 0.66 ng/mL (<0.5)
[2021-02-21 08:43] VITALS: PULSE 74; RESP 16; O2SAT 98
[2021-02-21 09:00] VITALS: BP 127/59; PULSE 69; RESP 16; TEMP 36.8; O2SAT 99
[2021-02-21] MEDS: metroNIDAZOLE 500 MG/100 ML PIGGYBACK 100 MG IV (09:00)
[2021-02-21] MEDS: METOPROLOL IR 50 MG TABLET PO (09:09)
--- NOTE | 2021-02-21 12:22 | CM.DANOTE ---
DCP: Case received, EMR reviewed and met with patient. , Leyda, was also at bedside. Introduced self and role. Was able to obtain information regarding patient's baseline status prior to hospitalization. DCP assessment completed with information currently available. Patient is a 35 year old male who admitted yesterday morning to the care of the hospitalist team. PCP: Dr. Solis. Payer: confirmed: [facility]. Patient came to the hospital via private vehicle secondary to having pain upon breathing and some shortness of breath. He was diagnosed with pneumonia. He is not currently on oxygen. Patient has history of alcoholic cirrhosis as well. Met with patient and . He is alert and oriented. He and his reside here in [place] and he is self employed. He is independent at his baseline. Confirmed that he sees Dr. Solis at [facility] as primary care provider. Went into patient's room again during team rounds, and hospitalist mentioned that patient will be discharged home on oral antibiotics. P: Patient has discharge orders for home today on oral antibiotics. Amber Gaviria RN/[facility] Agent.
--- NOTE | 2021-02-21 12:36 | PC.NURSE ---
Pt A&O x3, pleasant. He denies pain. LS diminshied L Side. Pt reports feeling better Afebrile, 02 sats 94% on RA, able to attain 3000 on IS. LS diminished L side. MD at bedside this a.m. clearing him for discharge home.Pt and at bedside verbalize aggreement and acknowledge plan for po antibiotics, two types x 5 days. Pt given medication education and RN reviewed discharge instructions, as well as CPAP machine care. Pt verbalized understanding and escorted by RN via w/ch to private vehicle with spouse this afternoon.
--- NOTE | 2021-02-21 19:54 | P.DS_ITS ---
History of Present Illness History of Present Illness Chief complaint: sob Narrative: H and P per Asher Castañeda: 35-year-old male with a past medical history of alcoholic cirrhosis, chronic anemia who presented to the emergency room today for worsening shortness of breath and left-sided chest pain. Patient was in the emergency room a few days ago and was diagnosed with musculoskeletal pain and was discharged home after he felt better with some Toradol. Since then his symptoms have continued to worsen. He denies any fevers, or chills. But he has had a pleuritic left chest pain, which is in the lower chest, lateral wall, as well as superiorly that hurts with every breath and he feels that he cannot take a big enough breath in without pain. He denies any recent travel or sick contacts. He denies any dyspnea on exertion or chest pain, lower extremity edema. He denies any falls or trauma to his chest area. In the emergency room yesterday evening the patient was febrile to 101.4, initially tachypneic in the upper 20s to low 30s, up to 90% on 2 L initially, however this morning he is improved and saturating at 92% on room air. Initial laboratory evaluation showed a mild leukocytosis with a WBC of 12.5, stable hemoglobin at 11.7, and slight increase in his platelet count to 139. D-dimer was 709. Chemistry panel was notable for a total bilirubin of 2.6 slightly up from 1.3 a few days ago. There are no significant transaminase elevations. Troponin was negative. Procalcitonin was indeterminate at 0.47. COVID-19 testing was negative. Full respiratory panel was negative. Chest x-ray showed a trace pleural effusion on the left Discharge Providers Provider Date of admission: 02/20/21 06:56 Discharge Date: 02/21/21 Primary care physician: Chavez Solis DO Discharge provider: Zohaib Machuca MD Summary Hospital Course Discharge Diagnosis: 1. Left lower lobe pneumonia, probable bacterial 2. Small left pleural effusion, probabl parapneumonic 3. Alcoholic cirrhosis 4. Chronic anemia 5. Hypertension 6. Thrombocytopenia Hospital Course: Mr. Cerda came in initially with respiratory symptoms of shortness of breath with an elevated white count. He was initially tachypneic. Chest xray was consistent with pneumonia, and small pleural effusion. He improved with antibiotics. Given his good improvement and very small effusion, plan was to treat empirically for a pneumonia. He was planned for a seven day course of antibiotics and will be discharged on levofloxacin and flagyl for 5 more days through 02/26. His cultures, respiratory panel, sputum were negative on discharge. Of note he had mild thrombocytopenia, likely from infection or cirrhosis, not needing transfusion. The rest of his medical issues were stable in the hospital. Exam Vital Signs (past 8 hours): Oxygen Delivery Method Room Air Oxygen Flow Rate 0 Narrative Exam Narrative: GEN: Well developed, well nourished, male but appears acutely ill and mildly tachypneic HEENT: Normocephalic atraumatic, extraocular muscles are intact, oropharynx is clear and mucous membranes are dry, poor dentition, neck is supple without adenopathy NECK: Supple and symmetric. There was no thyroid enlargement, and no tenderness LUNGS: clear with no wheezes, rhonchi, or rales. CARDIOVASCULAR: There was a regular rate and rhythm without any murmurs, gallops, rubs. Peripheral pulses were 2+ and symmetric. ABDOMEN: Soft, nontender, and nondistended MUSCULOSKELETAL: There was no tenderness or effusions noted. Muscle strength and tone were normal. EXTREMITIES: No cyanosis, clubbing or edema. NEUROLOGIC: Alert and oriented x 3. Normal affect. Strength is +5/5 in the Upper Extremities and Lower Extremities Bilaterally. Objective Labs Result Diagrams: 02/21/21 06:13 02/21/21 06:13 Labs: Laboratory Results - last 24 hr 02/21/21 02/21/21 06:13 06:13 WBC 11.7 H RBC 3.58 L Hgb 9.7 L Hct 29.2 L MCV 81.6 MCH 27.2 MCHC 33.3 RDW 22.3 H Plt Count 107 L Neut % (Auto) 78.1 H Lymph % (Auto) 10.6 L [place] % (Auto) 11.2 Eos % (Auto) 0.0 L Baso % (Auto) 0.1 Neut # (Auto) 9100 H Lymph # (Auto) 1200 [place] # (Auto) 1300 H Eos # (Auto) 0 Baso # (Auto) 0 RBC Morphology See below Anisocytosis 2+ H Sodium 136 L Potassium 4.4 Chloride 105 Carbon Dioxide 25 BUN 15 Creatinine 0.50 L Estimated GFR > 60.0 BUN/Creatinine Ratio 30.0 H Glucose 120 H Calcium 8.5 Total Bilirubin 1.5 H AST 27 ALT 17 Alkaline Phosphatase 57 Total Protein 6.2 L Albumin 3.0 L Globulin 3.2 Albumin/Globulin Ratio 0.9 L Procalcitonin 0.66 H PFSH Medical History Alcoholic hepatitis with ascites Anemia GERD (gastroesophageal reflux disease) (Unknown) H/O tinnitus (Unknown) Heart murmur Hypertension (Unknown) Irritable bowel syndrome (Unknown) Liver cirrhosis Liver disease (Unknown) Perforated tympanic membrane of both ears on examination Substance abuse (Unknown) Surgical History H/O left wrist surgery History of colonoscopy History of esophagogastroduodenoscopy (EGD) Family History Father Liver cancer Mother Breast cancer Unknown Alcoholism Social History household members: spouse Smoking Status: Never smoker second hand exposure: No alcohol intake: former substance use type: does not use Discharge Plan Discharge Plan Patient Disposition: Home Provider Discharge Comment: Mr. Cerda came in with shortness of breath and fevers. He was found to have a pneumonia. He was started on antibiotics and was feeling better. He should complete a full course of antibiotics and is discharged on two antibiotics levofloxacin and metronidazole for 5 more days. Discharge orders & Medications Prescriptions: New levofloxacin 750 mg tablet 750 mg PO DAILY Qty: 5 RF: 0 metronidazole [Flagyl] 500 mg tablet 500 mg PO Q8H Qty: 15 RF: 0 Continued vitamin B complex tablet 1 tab PO DAILY RF: 0 metoprolol tartrate 50 mg tablet 50 mg PO BID Qty: 180 RF: 1 Follow up/Referrals: Chavez Solis DO [Primary Care Provider] - Diet/Activity/Treatments Diet: Diet as Tolerated Visit Report/Discharge Packet Instructions: Pneumonia-Adult, DI for Pleurisy, How to Use a Continuous Po sitive Airway Pressure (CPAP) Device Discharge Data Primary Care Provider: Chavez Solis Quality MIPS - DC The patient has current or prior documentation of left ventricular ejection fraction (LVEF) less than 40%, or moderate or severely depressed left ventricular systolic function.: No
== END 2021-02-21 12:41 | disposition home or self-care (01) | DRG 194 ==
LOC: ED 03:33 → AC 06:56
PROVIDERS: Admitting Provider Internal Medicine; Emergency Provider Emergency Medicine; Family Provider Physician Assistant; PCP Family Medicine; Referring Provider Emergency Medicine; Visit Provider Internal Medicine
DX: J15.9 Unspecified bacterial pneumonia (principal); J90 Pleural effusion, not elsewhere classified; K70.30 Alcoholic cirrhosis of liver without ascites; I10 Essential (primary) hypertension; D64.9 Anemia, unspecified; D69.6 Thrombocytopenia, unspecified; Z20.822 Contact with and (suspected) exposure to COVID-19
CPT/HCPCS: 36415; 71045; 71275; 76705; 80053; 81001; 82550; 83605; 83690; 84145; 84484; 85007; 85025; 85379; 87040; 87070; 87205; 87633; 87635; 93005; 93010; 94760; 94762; 96361; 96365; 96366; 96375; 99285; C9803; J1200; J1885; J2930; Q9967

== ENCOUNTER → 2022-07-06 16:39 | Outpatient (CLI) | payer OTHER, SELFPAY ==
[2021-02-20 07:48] VITALS: BMI 30.8
--- NOTE | 2022-07-06 16:40 | DI.US.S_ITS ---
PROCEDURE: US SCROTUM INDICATIONS: Right testicular posterior structure mass, rule out hydrocel TECHNIQUE: Real-time scanning was performed of the scrotum and testicles, with image documentation. Color and pulse Doppler interrogation was performed of both testicles. COMPARISON: None. FINDINGS: Right: Testicle is normal in size at 3.9 x 2.4 x 1.8 cm, and homogenous in echotexture. Epididymis is normal in overall size and morphology. No hydrocele or varicoceles. Overlying scrotal skin is mildly thickened with increased vascularity measuring up to 5 mm in thickness. Left: Testicle is normal in size at 3.5 x 2.3 x 1.8 cm, and homogeneous in echotexture. Epididymis is normal in overall size and morphology. No hydrocele or varicoceles. Overlying scrotal skin is thickened with increased vascularity measuring up to 9 mm in thickness. Doppler: Color and pulse Doppler demonstrate normal and symmetric arterial flow in both testicles. IMPRESSION: 1. Unremarkable sonographic evaluation of the bilateral testicles without evidence for suspicious mass lesions, testicular torsion, or presence of hydrocele/varicoceles. 2. Nonspecific thickening and increased vascularity of the bilateral scrotal skin. Recommend clinical correlation. Findings may be related to possible cellulitis or other inflammatory process. Dictated by: Zeus Starks M.D. on 07/07/2022 at 8:56 Approved by: Zeus Starks M.D. on 07/07/2022 at 8:59
== END ==
PROVIDERS: Family Provider Physician Assistant; PCP Family Medicine; Referring Provider Family Medicine; Visit Provider Family Medicine
DX: N43.3 Hydrocele, unspecified (principal); D64.9 Anemia, unspecified; D69.6 Thrombocytopenia, unspecified
CPT/HCPCS: 76870

== ENCOUNTER → 2022-08-10 11:24 | Outpatient (CLI) | payer OTHER, SELFPAY ==
[2021-02-20 07:48] VITALS: BMI 30.8
[2022-08-10 13:27] LABS: Cholesterol 129 mg/dL (140-199); HDL Cholesterol 47 mg/dL (40-60); LDL Cholesterol Calculated 71 mg/dL (<100); Triglycerides 56 mg/dL (35-150)
[2022-08-10 13:52] LABS: TSH w/ Reflex to FT4 1.42 uIU/mL (0.47-4.68)
== END ==
PROVIDERS: Family Provider Physician Assistant; PCP Family Medicine; Referring Provider Family Medicine; Visit Provider Family Medicine
DX: D64.9 Anemia, unspecified (principal); D69.6 Thrombocytopenia, unspecified; N43.3 Hydrocele, unspecified
CPT/HCPCS: 36415; 80061; 84443

== ENCOUNTER → 2023-07-26 11:27 | Outpatient (CLI) | payer OTHER, SELFPAY ==
[2023-02-08 16:06] VITALS: BMI 30.8
[2023-07-26 12:51] LABS: Add Manual Diff / Slide Review NO; Basophils Absolute Auto 0 /uL (0-100); Basophils Percent Auto 0.5 % (0-2); Eosinophils Absolute Auto 100 /uL (0-450); Eosinophils Percent Auto 1.1 % (2-4); Hematocrit 45.3 % (41-53); Hemoglobin 15.9 g/dL (13.5-17.5); Lymphocytes Absolute Auto 1800 /uL (1100-4500); Lymphocytes Percent Auto 24.1 % (25-40); Mean Corpuscular HGB Conc 35.2 % (30-36); Mean Corpuscular Hemoglobin 30.8 PG (26-34); Mean Corpuscular Volume 87.5 fL (80-100); Monocytes Absolute Auto 400 /uL (0-900); Monocytes Percent Auto 5.8 % (3-14); Neutrophils Absolute Auto 5300 /uL (1500-7000); Neutrophils Percent Auto 68.5 % (50-75); Platelet Count 115 X10^3/uL (150-400); Red Blood Cell Count 5.18 X10^6/uL (4.5-5.9); Red Cell Distribution Width 13.6 % (11.6-14.8); White Blood Cell Count 7.7 X10^3/uL (4.5-11.0)
[2023-07-26 13:08] LABS: Alanine Aminotransferase 30 IU/L (<50); Albumin 4.5 g/dL (3.5-5.0); Albumin Globulin Ratio 1.3 (1.0-2.8); Alkaline Phosphatase 61 U/L (38-126); Aspartate Aminotransferase 34 IU/L (17-59); BUN Creatinine Ratio 17.2 (6-22); Bilirubin Total 0.8 mg/dL (0.2-1.3); Blood Urea Nitrogen 10 mg/dL (9-20); Calcium 9.6 mg/dL (8.4-10.2); Carbon Dioxide 27 mmol/L (22-32); Chloride 98 mmol/L (98-107); Estimated Glomerular Filt Rate > 60 mL/min (>60); Globulin 3.6 g/dL (1.7-4.1); Glucose 102 mg/dL (70-100); HEMOLYSIS 31 (0-50); Potassium 4.1 mmol/L (3.4-5.1); Sodium 134 mmol/L (137-145); Total Protein 8.1 g/dL (6.3-8.2)
[2023-07-26 13:22] LABS: Free T4, Direct Thyroxine 1.16 ng/dL (0.78-2.19)
[2023-07-26 13:35] LABS: Thyroid Stimulating Hormone 1.68 uIU/mL (0.47-4.68)
== END ==
PROVIDERS: Family Provider Physician Assistant; PCP Family Medicine; Referring Provider Family Medicine; Visit Provider Family Medicine
DX: I10 Essential (primary) hypertension (principal); R01.1 Cardiac murmur, unspecified
CPT/HCPCS: 36415; 80053; 84439; 84443; 85025

== ENCOUNTER → 2023-11-24 09:32 | Outpatient (CLI) | payer OTHER, SELFPAY ==
[2023-02-08 16:06] VITALS: BMI 30.8
--- NOTE | 2023-11-24 | DI.ECHO.S_ITS ---
[facility] +---------+ : : [address] : : : : [id number] : : : : Phone: [phone]+ Echocardiogram Report + + :Name: DELON LIZARRAGA Study Date: 11/24/2023 Height: 74 in : :[facility] ReadingLocation: Weight: 371 lb: : Gender: Male BSA: 2.8 m2 : :: 1985 Age: 38 yrs : :Reason For Study: PALPITATIONS : :Ordering Physician: ZAKIA, : :SUSAN Harrell Performed By: Pablo Cordero : :Referring: SUSAN ABRAMS : + + Interpretation Summary The study quality was technically difficult. The ejection fraction is estimated to be 55-60%. Diastolic parameters suggest probable normal left ventricular diastolic function and normal filling pressures. The right ventricle grossly appears normal in size with probable normal systolic function. No obvious valvular abnormalities. Pulmonary artery pressures cannot be estimated because of the lack of a measurable TR jet velocity. Procedure: A two-dimensional transthoracic echocardiogram with color flow and Doppler was performed. The study quality was technically difficult. Comparison is made with the echocardiogram of 05/27/2020. The patient was in normal sinus rhythm during the exam. The heart rate ranged between 61-74 bpm during the study. Left Ventricle: The left ventricle is normal in size. The ejection fraction is estimated to be 55-60%. Regional wall motion abnormalities cannot be excluded due to limited visualization. Diastolic parameters suggest probable normal left ventricular diastolic function and normal filling pressures. Right Ventricle: The right ventricle is not well visualized. The right ventricle grossly appears normal in size with probable normal systolic function. Atria: The left atrial size is normal. Right atrial size is normal. Mitral Valve: The mitral valve is grossly normal. There is no mitral valve stenosis. There is no mitral regurgitation noted. Aortic Valve: The aortic valve is not well visualized. There is no aortic valve stenosis. No aortic regurgitation is present. Tricuspid Valve: The tricuspid valve is not well visualized, but is grossly normal. There has been no significant change since the previous study. No tricuspid regurgitation. Pulmonary artery pressures cannot be estimated because of the lack of a measurable TR jet velocity. Pulmonic Valve: The pulmonic valve is not well visualized. There is no pulmonic valvular stenosis. There is no pulmonic valvular regurgitation. Great Vessels: The aortic root is normal size. The ascending aorta could not be visualized. The inferior vena cava was not visualized. Pericardium/ Pleura There is no pericardial effusion. There is no pleural effusion. MMode/2D Measurements & Calculations LVIDd: 5.1 cm LVOT diam: 2.0 cm LVIDs: 3.3 cm Ao root diam: 3.0 cm FS: 35.3 % Ao Arch Diam (Prox Trans): 2.9 cm IVSd: 0.94 cm LVPWd: 0.89 cm LV gutierrez. diameter/BSA (cm/m^2): 1.8 LV sys. diameter/BSA (cm/m^2): 1.2 LA A2 area: 24.3 cm2 RA long axis: 4.8 cm LA A4 area: 24.4 cm2 RA area: 18.6 cm2 LA length (vol): 6.4 cm RA vol: 61.8 ml LA vol: 78.7 ml RA : 21.9 ml/m2 LA vol index: 27.9 ml/m2 RVD1 (basal): 4.4 cm TAPSE: 3.1 cm Doppler Measurements & Calculations Ao V2 max: 162.5 cm/sec LVOT Max Percy: 105.0 cm/sec Ao V2 mean: 108.1 cm/sec LV V1 max P.4 mmHg Ao max P.6 mmHg LV V1 VTI: 26.3 cm Ao mean P.4 mmHg AUTUMN(I,D): 2.7 cm2 Ao V2 VTI: 31.7 cm AUTUMN(V,D): 2.1 cm2 sev ratio: 0.83 AUTUMN indexed to BSA (cm^2/m^2): 0.95 MV E max percy: 66.0 cm/sec PA V2 max: 142.6 cm/sec MV A max percy: 61.0 cm/sec PA V2 mean: 87.1 cm/sec MV E/A: 1.1 PA mean P.6 mmHg Med Peak E' Percy: 11.0 cm/sec PA pr(Accel): 34.5 mmHg E/E' med: 6.0 Lat Peak E' Percy: 15.9 cm/sec E/E' lat: 4.2 E/e' average: 5.1 MV dec time: 0.27 sec SV(LVOT): 85.2 ml Reading Physician:09:22 PM
== END ==
LOC: RAD 09:34
PROVIDERS: Family Provider Physician Assistant; PCP Family Medicine; Referring Provider Internal Medicine Cardiovascular Disease; Visit Provider Internal Medicine Cardiovascular Disease
DX: R00.2 Palpitations (principal)
CPT/HCPCS: 93306

== ENCOUNTER → 2023-11-25 07:53 | Outpatient (CLI) | payer OTHER, SELFPAY ==
[2023-02-08 16:06] VITALS: BMI 30.8
--- NOTE | 2023-11-25 07:55 | DI.NM.S_ITS ---
PROCEDURE: NM EXERCISE TREADMILL NON NUC COMPARISON: None INDICATIONS: Palpitations FINDINGS: Rest ECG sinus rhythm. Yunior protocol 7:18, maximum heart rate 185 bpm (102% peak predicted), maximum blood pressure 178/80, 8.1 METS, CRISTIAN +39%. Exercise ECG sinus tachycardia, no ST segment changes or arrhythmia. The patient did not complain of exercise-induced chest pain. IMPRESSION: Low risk study. No evidence of exercise-induced ischemia or arrhythmia. Normal hemodynamic response. Markedly reduced exercise capacity. Dictated by: Susan Abrams D.O. on 11/25/2023 at 16:28 Approved by: Susan Abrams D.O. on 11/25/2023 at 16:33
== END ==
PROVIDERS: Family Provider Physician Assistant; PCP Family Medicine; Referring Provider Internal Medicine Cardiovascular Disease; Visit Provider Internal Medicine Cardiovascular Disease
DX: R00.2 Palpitations (principal)
CPT/HCPCS: 93017

== ENCOUNTER → 2024-05-15 10:49 | Outpatient (CLI) | payer OTHER, MEDICAID, SELFPAY ==
[2023-02-08 16:06] VITALS: BMI 30.8
[2024-05-15 12:16] LABS: Alanine Aminotransferase 29 IU/L (<50); Albumin 4.4 g/dL (3.5-5.0); Albumin Globulin Ratio 1.5 (1.0-2.8); Alkaline Phosphatase 61 U/L (38-126); Aspartate Aminotransferase 30 IU/L (17-59); BUN Creatinine Ratio 13.7 (6-22); Blood Urea Nitrogen 10 mg/dL (9-20); Calcium 9.3 mg/dL (8.4-10.2); Carbon Dioxide 27 mmol/L (22-32); Chloride 100 mmol/L (98-107); Cholesterol 139 mg/dL (140-199); Estimated Glomerular Filt Rate > 60 mL/min (>60); Glucose 127 mg/dL (70-100); HDL Cholesterol 43 mg/dL (40-60); HEMOLYSIS < 15 (0-50); LDL Cholesterol Calculated 74 mg/dL (<100); Potassium 4.3 mmol/L (3.4-5.1); Sodium 135 mmol/L (137-145); Total Protein 7.4 g/dL (6.3-8.2); Triglycerides 111 mg/dL (35-150)
[2024-05-15 12:23] LABS: NT-proBNP (BNP-Adult 18+) < 20 pg/mL (<125)
[2024-05-15 12:46] LABS: TSH w/ Reflex to FT4 1.93 uIU/mL (0.47-4.68)
[2024-05-15 13:01] LABS: Hemoglobin A1C% w Est Avg Glu 5.6 % (4.0-6.0)
== END ==
PROVIDERS: Family Provider Physician Assistant; PCP Family Medicine; Referring Provider Family Medicine; Visit Provider Family Medicine
DX: Z00.01 Encounter for general adult medical examination with abnormal findings (principal); E11.9 Type 2 diabetes mellitus without complications; I10 Essential (primary) hypertension; Z86.79 Personal history of other diseases of the circulatory system; D64.9 Anemia, unspecified
CPT/HCPCS: 36415; 80053; 80061; 83036; 83880; 84443

== ENCOUNTER → 2024-05-26 14:33 | Outpatient (CLI) | payer OTHER, MEDICAID, SELFPAY ==
[2023-02-08 16:06] VITALS: BMI 30.8
--- NOTE | 2024-05-26 14:34 | DI.CT.S_ITS ---
PROCEDURE: CT ABDOMEN PELVIS WO CON INDICATIONS: ventral hernia, ascities, hx cirrhosis TECHNIQUE: Axial sections were acquired from the lung bases to the pubic symphysis. Coronal and sagittal reformats were performed. For radiation dose reduction, the following was used: automated exposure control, adjustment of mA and/or kV according to patient size. IV contrast not administered due to iodine allergy. COMPARISON: [facility], CT, CT ABDOMEN WO/W CON, 07/04/2020, 13:32. FINDINGS: Image quality: Diagnostic. Evaluation of the solid parenchymal organs is limited without IV contrast. Lower Chest: No significant findings. URINARY: Right Kidney: No stones or hydronephrosis. Right Ureter: No hydroureter. Left Kidney: No stones or hydronephrosis. Left Ureter: No hydroureter. Bladder: Normal wall thickness. No stones. ABDOMEN: Liver: Cirrhosis. Hypodensity in the right lobe of the liver at the dome measuring 2 cm, (11/28), previously 1.6 cm in 2019. Most consistent with a benign cyst. This exam is not adequate for the screening for HCC given the absence of IV contrast. Gallbladder: Multiple layering gallstones. Biliary ducts: No biliary dilation. Pancreas: No peripancreatic fluid collection. Spleen: Enlarged measuring 15.6 cm. Adrenal Glands: No adrenal nodules. Stomach and Bowel: Normal colonic caliber, without significant wall thickening. Normal appendix. Peritoneum: No abnormal intraperitoneal fluid. No free air. Ventral Wall: Fat containing umbilical hernia. The hernia neck measures 1.5 cm, (), increased compared to 2019. Abdominal Nodes: No enlarged retroperitoneal or mesenteric lymph nodes. Vessels: Aorta and inferior vena cava are normal in size. Upper abdominal varices. PELVIS: Pelvic Organs: Unremarkable. Pelvic Nodes: Unremarkable. Miscellaneous: No inguinal hernias are seen. Bones: No suspicious osseous lesion. IMPRESSION: 1. Cirrhosis. Splenomegaly. Upper abdominal varices. No ascites. 2. Presumed small cyst in the right lobe of the liver is unchanged. 3. Umbilical fat containing hernia is increased compared to 2019. Dictated by: Mino Nicole M.D. on 05/27/2024 at 14:16 Approved by: Mino Nicole M.D. on 05/27/2024 at 14:26
== END ==
LOC: CT 14:33
PROVIDERS: Family Provider Physician Assistant; PCP Family Medicine; Referring Provider Family Medicine; Visit Provider Family Medicine
DX: K70.31 Alcoholic cirrhosis of liver with ascites (principal); K43.9 Ventral hernia without obstruction or gangrene; K76.0 Fatty (change of) liver, not elsewhere classified; K80.20 Calculus of gallbladder without cholecystitis without obstruction; R16.1 Splenomegaly, not elsewhere classified; K42.9 Umbilical hernia without obstruction or gangrene; I86.8 Varicose veins of other specified sites
CPT/HCPCS: 74176

== ENCOUNTER → 2025-08-19 12:23 | Outpatient (CLI) | payer OTHER, SELFPAY ==
[2023-02-08 16:06] VITALS: BMI 30.8
[2025-08-19 12:56] LABS: Add Manual Diff / Slide Review NO; Hematocrit 45.8 % (41-53); Hemoglobin 15.9 g/dL (13.5-17.5); Lymphocytes Absolute Auto 2000 /uL (1100-4500); Mean Corpuscular HGB Conc 34.7 % (30-36); Mean Corpuscular Hemoglobin 30.7 PG (26-34); Mean Corpuscular Volume 88.5 fL (80-100); Platelet Count 142 X10^3/uL (150-400)
[2025-08-19 13:39] LABS: Alanine Aminotransferase 40 IU/L (<50); Albumin 4.4 g/dL (3.5-5.0); Albumin Globulin Ratio 1.3 (1.0-2.8); Alkaline Phosphatase 57 U/L (38-126); Blood Urea Nitrogen 10 mg/dL (9-20); Calcium 9.1 mg/dL (8.4-10.2); Carbon Dioxide 26 mmol/L (22-32); Chloride 99 mmol/L (98-107); Cholesterol 142 mg/dL (140-199); Estimated Glomerular Filt Rate > 60 mL/min (>60); Globulin 3.4 g/dL (1.7-4.1); Glucose 116 mg/dL (70-99); HDL Cholesterol 40 mg/dL (40-60); HEMOLYSIS 24 (0-50); Potassium 4.1 mmol/L (3.4-5.1); Sodium 135 mmol/L (137-145); Total Protein 7.8 g/dL (6.3-8.2); Triglycerides 92 mg/dL (35-150)
[2025-08-19 14:28] LABS: Hemoglobin A1C% w Est Avg Glu 5.5 % (4.0-6.0)
[2025-08-19 16:14] LABS: TSH w/ Reflex to FT4 2.17 uIU/mL (0.47-4.68)
== END ==
PROVIDERS: PCP Family Medicine; Referring Provider Family Medicine; Visit Provider Family Medicine
DX: Z00.01 Encounter for general adult medical examination with abnormal findings (principal); E87.5 Hyperkalemia; E11.9 Type 2 diabetes mellitus without complications; Z86.39 Personal history of other endocrine, nutritional and metabolic disease; D50.0 Iron deficiency anemia secondary to blood loss (chronic); I10 Essential (primary) hypertension
CPT/HCPCS: 36415; 80053; 80061; 83036; 84443; 85025